=== PATIENT | male | born 1945 | race Caucasian/White ===

== ENCOUNTER → 2020-07-25 11:44 | Outpatient (BNVA) | payer MEDICARE, OTHER, SELFPAY | PROVIDERS: Family Provider Internal Medicine; PCP Urology; Visit Provider Urology | DX: R82.81 Pyuria (principal); N40.1 Benign prostatic hyperplasia with lower urinary tract symptoms; R39.12 Poor urinary stream; R33.9 Retention of urine, unspecified | CPT/HCPCS: 80053; 81001; 87077; 87086; 87186 ==

== ENCOUNTER → 2020-11-26 16:18 | Outpatient (BNVA) | payer MEDICARE, OTHER, SELFPAY | PROVIDERS: Family Provider Internal Medicine; PCP Urology; Visit Provider Urology | DX: R33.9 Retention of urine, unspecified (principal); N40.1 Benign prostatic hyperplasia with lower urinary tract symptoms; R39.12 Poor urinary stream; R30.0 Dysuria; R31.0 Gross hematuria; R33.8 Other retention of urine | CPT/HCPCS: 81003; 87077; 87086; 87184 ==

== ENCOUNTER 2020-12-02 12:20 | Emergency (ER) | payer MEDICARE, OTHER, SELFPAY ==
[2020-12-02] VITALS (7 sets, daily range): BP systolic 147–207; BP diastolic 81–104; PULSE 58–68; RESP 16–18; TEMP 36.3; O2SAT 97–99; BMI 22.6
--- NOTE | 2020-12-02 12:48 | CT_ITS ---
WS: [id number] CT HEAD NONCONTRAST HISTORY: fall/laceration TECHNIQUE: Contiguous axial imaging performed through the brain in 2.5 mm imaging. Bone and soft tiss ue windows. Sagittal and coronal reformats reviewed. All CT scans at [facility] use at ast one of these dose optimization techniques: automated exposure control; mA and/or kV adjustment pe r patient size (includes targeted exams where dose is matched to clinical indication); or iterative r econstruction. DLP: 1295.32 mGy.cm COMPARISON: MRI 08/24/2007 No acute intracranial hemorrhage, midline shift or mass effect. Mild atrophy and mild chronic microvascular ischemic disease. Ventricles: Normal size with no hydrocephalus. No inferior displacement of cerebellar tonsils. Paranasal sinuses: Near complete soft tissue opacification of the RIGHT maxillary sinus. Mastoid air cells: Well pneumatized. Calvarium and scalp: No skull fracture. Extensive soft tissue injury with hematoma and bleeding cente red over the LEFT face and zygomatic arch. No fracture identified. Facial CT to follow. CT/CT head wo con* [id number] IMPRESSION: 1. No acute intracranial hemorrhage or edema. 2. Mild atrophy and chronic ischemic disease. 3. Extensive soft tissue injury centered over the LEFT facial bones. No fractu res identified. Dedicated facial bone CT to follow. 4. Near complete opacification of the RIGHT maxillary sinus. No RIGHT maxillar y sinus fracture identified.
--- NOTE | 2020-12-02 12:48 | CT_ITS ---
WS: [id number] CT FACIAL BONES HISTORY: Fall with laceration/ black eye left. TECHNIQUE: Images obtained from the supraorbital location through the mandible. Soft tissue and bone windows are reviewed. Coronal and sagittal reformats have also been submitted. DLP: 875.[address] scans at [facility] use at least one of these dose optimization techniques: automat ed exposure control; mA and/or kV adjustment per patient size (includes targeted exams where dose is matched to clinical indication); or iterative reconstruction. COMPARISON: None available. No facial bone fracture is identified. No air-fluid levels in the LEFT maxillary sinus. The nasal bon es and zygomatic arches are normal. There is a large amount of soft tissue injury centered over the L EFT zygomatic arch and maxillary sinus. Near complete soft tissue opacification of the RIGHT maxillary sinus is probably due to inspissated s inus secretions. CT/CT facial bones wo con* [id number] IMPRESSION: No facial bone fractures. Soft tissue injury centered over the LEFT facial bones.
--- NOTE | 2020-12-02 12:49 | CT_ITS ---
WS: [id number] CT CERVICAL SPINE HISTORY: fall/pain TECHNIQUE: Contiguous 2.5 mm axial imaging performed through the entire cervical spine. Sagittal and coronal reformats also performed. All CT scans at [facility] use at least one of these do se optimization techniques: automated exposure control; mA and/or kV adjustment per patient size (inc ludes targeted exams where dose is matched to clinical indication); or iterative reconstruction. DLP: 671.49 mGy.cm COMPARISON: 03/30/2007 Increase in the cervical lordosis. Craniocervical junction is intact. Significant narrowing of the pr edental space. Less than 2 mm anterolisthesis of C5. Bilateral facet joint arthritis throughout the c ervical spine. Most significant changes at C4-5, C5-6 and C6-7. No fractures are identified. Bilatera l facet joint arthritis and foraminal narrowing throughout the cervical spine. Most significant narro wing at C5-6 and C6-7 and on the LEFT at C4-5. Atherosclerotic plaque in the carotid bifurcations. Lung apices are clear. CT/CT cervical spin wo con* [id number] IMPRESSION: 1. No cervical spine fracture. 2. Advanced facet joint arthritis as described above.
--- NOTE | 2020-12-02 12:54 | ED_ITS ---
HPI - Head Injury General: Chief complaint: Head Injury Stated complaint: Face Lac/Fall/ Took Asprin Time Seen by Provider: 12/02/20 12:31 History of Present Illness: HPI Narrative: The patient is a 75-year-old male who comes to the ER complaining of a fall related to his Parkinson's disease. Tripped and fell on carpet face first. He has a laceration on his left cheek and left eyebrow as well as a black eye on the left side. He took an aspirin at home and could not get the bleeding to stop so he went to an urgent care center who sent him to the ED for evaluation. Complaint: head injury and fall Mechanism of Injury: fall Place: home Location of injury: face Severity: moderate Quality: sharp Radiation: neck Context: on aspirin Associated symptoms: Reports no associated symptoms and neck pain; Deny confusion Review of Systems General: Reports: 10 or more systems reviewed and unremarkable except in HPI and below Const: Denies: fatigue Eyes: Denies: change in vision, blurry vision or eye redness ENMT: Denies: throat pain, swelling of lips/tongue, ear or mastoid pain or nasal congestion Card: Denies: chest pain, palpitations, irregular heart rhythm, edema, dyspnea on exertion or orthopnea Resp: Denies: dyspnea, productive cough or non-productive cough GI: Denies: abdominal pain, diarrhea or GI cramping : Denies: flank pain, urinary frequency or urinary urgency Musc: Reports: neck pain Skin/Breast: Reports: other (2 lacerations); Denies: rash, pruritus, erythema, skin pain or skin tenderness Neuro: Denies: headache(s), numbness in extremities, weakness in extremities, sensory changes, difficulty walking, dizziness, confusion or Slurred speech present Psych: Denies: anxiety or depression Endo: Denies: polyuria All/Imm: Denies: urticaria, throat swelling or tongue swelling PFS ED PFSH: Medical History Benign prostatic hyperplasia with lower urinary tract symptoms Gross hematuria Hx of cataract Hx of myocardial infarction Incomplete bladder emptying Neuropathy Parkinson disease Pyuria Surgical History Hx of mitral valve replacement Family History Father Stroke Mother CAD (coronary artery disease) Social History Smoking and tobacco status: former smoker Alcohol intake: unknown Adopted: No Caregiver/support person: No Lives independently: No Household members: spouse Marital status: Current occupational status: retired Physical Exam Const: COMMON NORMALS: no acute distress, average body habitus, patient oriented x3, no limitations, healthy appearing, alert and well nourished GENERAL APPEARANCE: cooperative, comfortable, well kempt and well developed ORIENTATION/CONSCIOUSNESS: Yes awake, Yes oriented to person, Yes oriented to place and Yes oriented to time HENMT: COMMON NORMALS: normocephalic, external ears normal and Normal external nose present HEAD & SCALP: normal to inspection and normocephalic NOSE: Normal external nose present EXTERNAL EAR: Yes external ears normal MOUTH: Normal oral and palatal mucosa present THROAT: posterior oropharynx normal Eye: COMMON NORMALS: Equal, round and reactive pupils present and EOMs intact bilaterally GENERAL EYE: appearance normal, both eyes and all related structures PUPIL: Yes Equal, round and reactive pupils present Neck/C-Spine: COMMON NORMALS: full ROM, no lymphadenopathy, no meningeal signs and no JVD GENERAL: Yes normal visual inspection Lymph: LYMPHATIC: no lymphadenopathy noted Chest: COMMONS NORMALS: normal inspection of the chest and normal palpation of entire chest wall Resp: COMMON NORMALS: normal respiratory effort, No retractions, No use of accessory muscles, clear to auscultation bilaterally and percussion normal EFFORT & INSPECTION: Yes able to speak in complete sentences AUSCULTATION: clear to auscultation bilaterally PERCUSSION: percussion normal Cardio: COMMON NORMALS: no JVD, regular rate, regular rhythm, S1 normal heart sound present, S2 normal heart sound present and Peripheral pulses 2+ throughout RATE: regular rate RHYTHM: regular rhythm HEART SOUNDS: S1 normal heart sound present and S2 normal heart sound present PERIPHERAL PULSES: Peripheral pulses 2+ throughout GI: COMMON NORMALS: Normal to inspection, nondistended, normoactive bowel sounds present, Soft to palpation, non-tender and no masses INSPECTION: Yes normal to inspection PALPATION: Yes Soft to palpation : COMMON NORMALS: Yes no CVA tenderness BLADDER/KIDNEY EXAM: Yes no CVA tenderness Back/Pelvis: COMMON NORMALS: no CVA tenderness, thoracic and lumbar spine normal to inspection, no thoracic nor lumbar tenderness and thoraco-lumbar ROM normal Extremity: COMMON NORMALS: normal to inspection, full ROM, capillary refill normal, no joint enlargement and no pedal edema GENERAL: Yes normal exam except as noted Neuro: COMMON NORMALS: patient oriented x3, CN's II-XII intact bilaterally, moves all extremities, no focal motor deficits, no sensory deficits noted and gait normal SENSORIUM/ORIENTATION: Yes alert, Yes oriented to person, Yes oriented to place and Yes oriented to time MENINGEAL SIGNS: Yes no meningeal signs Psych: COMMON NORMALS: mental status grossly normal, Normal thought process present, cooperative, normal affect and speech normal APPEARANCE: Yes well kempt ATTITUDE: Yes calm SPEECH: Yes normal speech THOUGHT PROCESS: Normal thought process present Skin: COMMON NORMALS: no rashes or lesions noted NARRATIVE SKIN EXAM: Normal except he has a black eye on the left side. He is able to open his eye it is not swollen completely shut. Normal vision he is able to read small print including my ID with that eye and the other eye closed. He has 2 lacerations the worst is to his left cheek which is 4-5 cm and irregular actively bleeding. Bruising surrounding. Slightly above and lateral to the left eyebrow is a smaller laceration 2 to 3 cm also actively bleeding. Pressure dressing applied by nurse. GENERAL SKIN EXAM: no rashes or lesions noted Procedures Laceration Laceration 1: Site: face (left cheek) Side (If applicable): left Size (cm): 4 Description: irregular Local Anesthetic: lidocaine 1% and with epi Amount of anesthesia used (mL): 4 Skin layer closed with: other (nonabsorbable suture) Size (cm): 5-0 Number of sutures: 7 Technique: simple, interrupted eyebrow laceration: Site: face Side (If applicable): left Size (cm): 3.5 Description: irregular Local Anesthetic: lidocaine 1% and with epi Amount of anesthesia used (mL): 4 Skin layer closed with: vicryl Size (cm): 5-0 Number of sutures: 1 Course Vital Signs: Vital signs: Vital Signs Temperature 97.3 F L 12/02/20 12:31 Pulse Rate 61 12/02/20 16:06 Respiratory Rate 18 12/02/20 12:31 Blood Pressure 169/92 12/02/20 16:06 Pulse Oximetry 99 12/02/20 16:06 MDM - Head Injury MDM Narrative: Medical decision making narrative: CT of the head neck and face shows no fractures. 2 lacerations to face were repaired. Had to open up the upper laceration and use silver nitrate and [id number] Vicryl stitch. Bleeding ceased. He will need to follow-up with urgent care in 7 to 10 days to have the other sutures removed on the lower laceration. ER with worsening symptoms. Discharged with Keflex to find a potential infection Discharge Plan Discharge Patient Disposition: Home Clinical Impression: Closed head injury, Face lacerations Condition: Stable Prescriptions: New Keflex 500 mg capsule 500 mg PO BID 7 Days Qty: 14 RF: 0 No Action duloxetine 30 mg capsule,delayed release(DR/EC) 30 mg PO BEDTIME RF: 0 sulfamethoxazole-trimethoprim 800-160 mg tablet 1 tab PO BID Qty: 28 RF: 0 aspirin [Adult Low Dose Aspirin] 81 mg tablet,delayed release (DR/EC) 81 mg PO QAM RF: 0 carvedilol 12.5 mg tablet 12.5 mg PO BID RF: 0 Rytary 48.75-195 mg capsule, extended release See Rx Instructions .ROUTE .COMPLEX RF: 0 ropinirole 1 mg tablet 2 mg PO TID RF: 0 acetaminophen [Tylenol 8 Hour] 650 mg tablet extended release 650 mg PO Q8H PRN (Reason: Pain) RF: 0 alpha lipoic acid 250 mg capsule 250 mg PO DAILY RF: 0 silodosin [Rapaflo] 8 mg capsule 8 mg PO QPM RF: 0 methenamine hippurate 1 gram tablet 1 g PO BID Qty: 180 RF: 3 multivitamin Tablet 1 tab PO DAILY RF: 0 hydrocodone-acetaminophen 5-325 mg tablet 1 tab PO Q4H PRN (Reason: Pain) RF: 0 Rytary 23.75-95 mg capsule, extended release 1 cap PO QID PRN (Reason: unknown) RF: 0 finasteride 5 mg tablet 5 mg PO QAM RF: 0 Discharge Orders: Discharge ED (Routine); Ordered 12/02/20 Ordered By: Venkata Gamez Referrals: Emiliano Oliva MD [Primary Care Provider] - Discharge Diet: Advance as tolerated Discharge Activity: Resume usual activity Patient Instructions: Laceration (ED) Activity Restrictions/Additional Instructions: You have a couple lacerations to your face. The lower one has several sutures in it which need to be removed in 7 to 10 days. The upper 1 we had to remove the sutures and use silver nitrate to cauterize the area as well as I placed 1 [id number] Vicryl suture which is absorbable so it will not need to be removed. Please follow-up with your primary care physician or urgent care around them and return to the ER with worsening symptoms. Coding Level of Care Code ED Ict Programmer for Stacey Lofton Exam Comprehensive
--- NOTE | 2020-12-02 12:58 | PC.NURSE ---
pt has laceration above left eye and hematoma near eye
[2020-12-02] MEDS: cloNIDine 0.1 mg Tablet 0.2 MG PO (16:04)
[2020-12-02] MEDS: neomycin-poly-bacitracin oint 0.9 gm Pkt 1 APPLIC TOPICAL (17:06)
--- NOTE | 2020-12-02 17:07 | PC.NURSE ---
assisted physician with suture placement-wound cleaned and dressed
--- NOTE | 2020-12-02 19:08 | PC.NURSE ---
report received from ALESIA Marino and care transferred to ALESIA Lainez
[2020-12-02] MEDS: silver nitrate applicator 6 EACH TOPICAL (20:10)
== END 2020-12-02 20:20 | disposition home or self-care (01) ==
PROVIDERS: Emergency Provider Family Medicine; PCP Urology
DX: S09.8XXA Other specified injuries of head, initial encounter (principal); S01.412A Laceration without foreign body of left cheek and temporomandibular area, initial encounter; S01.112A Laceration without foreign body of left eyelid and periocular area, initial encounter; W01.198A Fall on same level from slipping, tripping and stumbling with subsequent striking against other object, initial encounter; I25.2 Old myocardial infarction; G20 Parkinson's disease; Z87.891 Personal history of nicotine dependence
CPT/HCPCS: 12014; 12345; 70450; 70486; 72125; 99282; 99283; J3490

== ENCOUNTER → 2021-01-09 09:03 | Outpatient (BNVA) | payer MEDICARE, OTHER, SELFPAY | PROVIDERS: PCP Urology; Visit Provider Urology | DX: R30.0 Dysuria (principal); R31.0 Gross hematuria; R82.81 Pyuria; N40.1 Benign prostatic hyperplasia with lower urinary tract symptoms; R39.12 Poor urinary stream; R33.9 Retention of urine, unspecified | CPT/HCPCS: 81003 ==

== ENCOUNTER 2021-01-16 18:26 | Emergency (ER) | payer MEDICARE, OTHER, SELFPAY ==
--- NOTE | 2021-01-16 18:32 | CTR_ITS ---
PROCEDURE INFORMATION: Exam: CT Head Without Contrast Exam date and time: 01/16/2021 6:42 PM Age: 75 years old Clinical indication: Injury or trauma; Fall; Blunt trauma (contusions or hematomas); Without loss of consciousness TECHNIQUE: Imaging protocol: Computed tomography of the head without contrast. Radiation optimization: All CT scans at this facility use at least one of these dose optimization techniques: automated exposure control; mA and/or kV adjustment per patient size (includes targeted exams where dose is matched to clinical indication); or iterative reconstruction. COMPARISON: No relevant prior studies available. RADIATION DOSE METRICS: Total DLP (mGy-cm): 527.7 FINDINGS: Brain: There are global involutional changes of the brain which are in keeping with the patient's age. Periventricular hypodensities are nonspecific but most likely reflect chronic microvascular ischemic disease. There is no evidence of intracranial hemorrhage. No abnormal extra-axial fluid collections are identified. No mass effect or midline shift is seen. Shannon-white differentiation is preserved throughout. Cerebral ventricles: No ventriculomegaly. Bones/joints: No calvarial fracture identified. Paranasal sinuses: There is partial opacification of the right maxillary antrum. No air-fluid levels. Mastoid air cells: There is no mastoid effusion detected. Vasculature: Atherosclerotic vascular disease is noted at the level of the skull base. Soft tissues: Right frontal scalp injury. CT/CT head wo con* [id number] IMPRESSION: 1. No acute intracranial hemorrhage, mass or midline shift. 2. Involutional changes of the brain in keeping with the patient's age, with findings of chronic microvascular ischemic disease. Radiation Dose CTDIVOL = (mGy): DLP = 527.7 (mGy-cm)
[2021-01-16 18:38] VITALS: BP 127/100; PULSE 82; RESP 18; O2SAT 95; BMI 23.3
[2021-01-16 19:01] VITALS: BP 127/100; PULSE 63; RESP 16; O2SAT 93
[2021-01-16 20:44] VITALS: BP 148/78; RESP 16; O2SAT 97
[2021-01-16 20:52] LABS: Basophils # 0.1 10^3/uL (0.0-0.1); Basophils % 0.7 %; Eosinophils # 0.1 10^3/uL (0.0-0.8); Eosinophils % 0.9 %; Hemoglobin 10.4 g/dL (11.7-16.6); Lymphocytes # 1.4 10^3/uL (0.8-4.8); Mean Corpuscular HGB Conc 32.5 g/dL (30.0-36.0); Mean Corpuscular Hemoglobin 30.2 pg (28.0-34.0); Mean Platelet Volume 9.2 fL (7.4-10.4); Monocytes # 0.9 10^3/uL (0.2-0.9); Monocytes % 11.4 %; Neutrophils # 5.04 10^3/uL (1.8-7.7); Neutrophils % 67.7 %; Nucleated Red Blood Cells % 0 %; Platelet Count 210 10^3/cmm (130-400); Red Blood Count 3.44 10^6/uL (4.1-5.3); Red Cell Distribution Width 13.2 % (12.1-15.1); White Blood Count 7.4 10^3/uL (4.0-10.0)
--- NOTE | 2021-01-16 21:13 | ED_ITS ---
HPI - Head Injury General: Chief complaint: Head Injury Stated complaint: head wound Time Seen by Provider: 01/16/21 18:37 Source: patient and family () Mode of arrival: ambulatory Limitations: no limitations History of Present Illness: HPI Narrative: This is a 75-year-old male with a history of Parkinson's disease who has balance issues and has had several falls. Today he said he tripped and fell and hit his head on the corner of a table and sustained a laceration to the right temporal region. He denies any loss of consciousness. He is not on any anticoagulation. He says he lost quite a bit of blood and so is here to be evaluated. Complaint: head injury Onset (ago): hour(s) (1) Mechanism of Injury: fall Place: home Loss of Consciousness: no Location of injury: temporal Severity: mild Quality: sharp Radiation: none Other Injuries: none Associated symptoms: Deny amnesia, confusion, nausea, neck pain, numbness, syncope, tingling, vertigo, visual changes, vomiting or weakness Review of Systems General: Reports: 10 or more systems reviewed and unremarkable except in HPI and below Const: Denies: fever(s), chills or body aches Eyes: Denies: change in vision or blurry vision ENMT: Denies: throat pain, enlarged tonsils, odynophagia, hoarseness, mouth pain or swelling of lips/tongue Card: Denies: syncope Resp: Denies: dyspnea, productive cough or non-productive cough GI: Denies: nausea or vomiting : Denies: flank pain, dysuria, urinary frequency, urinary urgency or urinary hesitancy Musc: Denies: neck pain Skin/Breast: Denies: rash, pruritus or erythema Neuro: Denies: vertigo or confusion Endo: Denies: polyuria, polydipsia or tired all the time PFS ED PFSH: Medical History (Reviewed 01/16/21 @ 23:05 by Marques Palacio [place], [facility] [place] Benign prostatic hyperplasia with lower urinary tract symptoms Gross hematuria Hx of cataract Hx of myocardial infarction Incomplete bladder emptying Neuropathy Parkinson disease Pyuria Surgical History (Reviewed 01/16/21 @ 23:05 by Marques Palacio MD, [facility] [place] Hx of mitral valve replacement Family History (Reviewed 01/16/21 @ 23:05 by Marques Palacio MD, [facility] [place] Father Stroke Mother CAD (coronary artery disease) Social History (Reviewed 01/16/21 @ 23:05 by Marques Palacio MD, [facility] Smoking and tobacco status: former smoker Alcohol intake: unknown Adopted: No Caregiver/support person: No Lives independently: No Household members: spouse Marital status: Current occupational status: retired History of recent travel: No Physical Exam Narrative: EXAM NARRATIVE: There is a lot of bleeding on his clothes, his shirt is soaked with blood and the dressing he has on his head is also fully soaked with blood. Const: COMMON NORMALS: no acute distress, average body habitus, patient oriented x3, no limitations, healthy appearing, alert and well nourished HENMT: COMMON NORMALS: normocephalic and moist oral mucous membranes HEAD & SCALP: normocephalic and laceration right temporal Details of head laceration: linear, actively bleeding, pulsatile bleeding, involves subcutaneous tissue and involves muscle tissue Head laceration size: 8 cm Eye: COMMON NORMALS: Equal, round and reactive pupils present, EOMs intact bilaterally, conjunctivae normal and no scleral icterus CONJUNCTIVA: Yes conjunctivae normal PUPIL: Yes Equal, round and reactive pupils present Neck/C-Spine: COMMON NORMALS: full ROM, supple, no meningeal signs, no JVD and No carotid bruits Resp: COMMON NORMALS: normal respiratory effort, No retractions, No use of accessory muscles, clear to auscultation bilaterally and percussion normal AUSCULTATION: clear to auscultation bilaterally PERCUSSION: percussion normal Cardio: COMMON NORMALS: no JVD, regular rate, regular rhythm, S1 normal heart sound present, S2 normal heart sound present, No gallops present (Cardio), No clicks present (Cardio), No murmurs present (Cardio), No rub (Cardio) and Peripheral pulses 2+ throughout RATE: regular rate RHYTHM: regular rhythm HEART SOUNDS: S1 normal heart sound present and S2 normal heart sound present PERIPHERAL PULSES: Peripheral pulses 2+ throughout GI: COMMON NORMALS: Normal to inspection, nondistended, normoactive bowel sounds present, Soft to palpation, non-tender, No hepatosplenomegaly present, no masses and no bruits PALPATION: Yes Soft to palpation and Yes No hepatosplenomegaly present Extremity: COMMON NORMALS: normal to inspection, full ROM, capillary refill normal, no calf tenderness and no pedal edema Neuro: COMMON NORMALS: patient oriented x3 SENSORIUM/ORIENTATION: Yes alert MENINGEAL SIGNS: Yes no meningeal signs Skin: COMMON NORMALS: no rashes or lesions noted, no wounds, turgor normal, no jaundice, no petechiae and no mottling GENERAL SKIN EXAM: no rashes or lesions noted and turgor normal Procedures Laceration Laceration 1: Site: scalp Side (If applicable): right Size (cm): 8 Description: linear Depth: involves muscle layer Local Anesthetic: lidocaine 2% and with epi Amount of anesthesia used (mL): 5 Pre-repair: wound explored and irrigated extensively Skin layer closed with: nylon Size (cm): 5-0 Number of sutures: 6 Technique: simple, interrupted Subcutaneous layer closed with: vicryl Size: 5-0 Number of sutures: 3 Muscle layer closed with: vicryl Course Vital Signs: Vital signs: Vital Signs Pulse Rate 71 01/16/21 22:44 Respiratory Rate 15 01/16/21 22:44 Blood Pressure 189/97 01/16/21 22:44 Pulse Oximetry 99 01/16/21 22:44 MDM - Head Injury MDM Narrative: Medical decision making narrative: 75-year-old male with history of Parkinson's disease who tripped and fell today and hit his head on a table. He sustained a laceration to his right temporal region with arterial injury. Wound was sutured, artery ligated successfully and muscle and subcutaneous tissue repaired with 5-0 Vicryl. Skin was closed with 5-0 nylon and he is discharged home with head injury instructions. Wound care instructions also given to the patient and his . He was given a dose of ceftriaxone in the emergency department and discharged home with a prescription for Keflex. He is to return for any concerns including signs of worsening head injury, infection of the wound or anything else that bothers them. and voiced understanding and they in agreement with the plan. Hemoglobin was 10.4. Medical Records: Attestation: I reviewed the patient's medical records. Lab Data: Attestation: I reviewed the patient's lab results. Labs: Lab Results 01/16/21 01/16/21 Range/Units 20:40 20:40 WBC 7.4 (4.0-10.0) 10^3/ uL RBC 3.44 L (4.1-5.3) 10^6/u L Hgb 10.4 L (11.7-16.6) g/dL Hct 32.0 L (42.0-52.0) % MCV 93.0 (80-94) fL MCH 30.2 (28.0-34.0) pg MCHC 32.5 (30.0-36.0) g/dL RDW 13.2 (12.1-15.1) % Plt Count 210 (130-400) 10^3/c mm MPV 9.2 (7.4-10.4) fL Neut % (Auto) 67.7 % Lymph % (Auto) 19.0 % Tate % (Auto) 11.4 % Eos % (Auto) 0.9 % Baso % (Auto) 0.7 % Neut # (Auto) 5.04 (1.8-7.7) 10^3/u L Lymph # (Auto) 1.4 (0.8-4.8) 10^3/u L Tate # (Auto) 0.9 (0.2-0.9) 10^3/u L Eos # (Auto) 0.1 (0.0-0.8) 10^3/u L Baso # (Auto) 0.1 (0.0-0.1) 10^3/u L Nucleated RBC % (a uto) 0 % Nucleated RBCs # 0.0 /100WBC Sodium 133 L (136-145) mmol/L Potassium 4.0 (3.5-5.1) mmol/L Chloride 97 L (98-107) mmol/L Carbon Dioxide 27 (22-29) mmol/L Anion Gap 13.0 (5-19) BUN 12 (8-23) mg/dL Creatinine 0.6 L (0.7-1.2) mg/dL GFR Calculation Not Reportable Glucose 107 (65-115) mg/dL Calculated Osmolal ity 276 L (285-295) mOsm/k g Calcium 8.9 (8.5-10.5) mg/dL Total Bilirubin 0.4 (0.15-1.2) mg/dL AST 12 (0-40) U/L ALT < 5 (0-41) U/L Alkaline Phosphata se 72 (40-130) IU/L Total Protein 5.9 L (6.6-8.7) g/dL Albumin 3.7 (3.5-5.2) g/dL Globulin 2.2 (1.3-4.6) g/dL Imaging Data^: CT Head: Attestation: I personally reviewed and interpreted this imaging study as follows: Radiologist's impression: [address] [place] [address] CT Scan Report Signed Patient: Wayne Doshi #: [id number] : 3Acct#:[id number] Age/Sex: 75 / MADM Date: 01/16/21 Loc: ERRoom/Bed: Attending Dr: Ordering Provider/Ordering MD: Karlo Rahman MD Date of Service: 01/16/21 Procedure(s): CT head wo con* [id number] Accession Number(s): [id number] Report Number: [id number] PROCEDURE INFORMATION: Exam: CT Head Without Contrast Exam date and time: 01/16/2021 6:42 PM Age: 75 years old Clinical indication: Injury or trauma; Fall; Blunt trauma (contusions or hematomas); Without loss of consciousness TECHNIQUE: Imaging protocol: Computed tomography of the head without contrast. Radiation optimization: All CT scans at this facility use at least one of these dose optimization techniques: automated exposure control; mA and/or kV adjustment per patient size (includes targeted exams where dose is matched to clinical indication); or iterative reconstruction. COMPARISON: No relevant prior studies available. RADIATION DOSE METRICS: Total DLP (mGy-cm): 527.7 FINDINGS: Brain: There are global involutional changes of the brain which are in keeping with the patient's age. Periventricular hypodensities are nonspecific but most likely reflect chronic microvascular ischemic disease. There is no evidence of intracranial hemorrhage. No abnormal extra-axial fluid collections are identified. No mass effect or midline shift is seen. Shannon-white differentiation is preserved throughout. Cerebral ventricles: No ventriculomegaly. Bones/joints: No calvarial fracture identified. Paranasal sinuses: There is partial opacification of the right maxillary antrum. No air-fluid levels. Mastoid air cells: There is no mastoid effusion detected. Vasculature: Atherosclerotic vascular disease is noted at the level of the skull base. Soft tissues: Right frontal scalp injury. CT/CT head wo con* [id number] IMPRESSION: 1. No acute intracranial hemorrhage, mass or midline shift. 2. Involutional changes of the brain in keeping with the patient's age, with findings of chronic microvascular ischemic disease. Radiation Dose CTDIVOL = (mGy): DLP = 527.7 (mGy-cm) Dictated By:Denia Bishop MD Signed By:Denia Bishopigned Date/Time:01/16/211923 DD/ 22 Discharge Plan Discharge Patient Disposition: Home Clinical Impression: Closed head injury Qualifiers: Encounter type: initial encounter Qualified Code(s): S09.90XA - Unspecified injury of head, initial encounter Scalp laceration Qualifiers: Encounter type: initial encounter Qualified Code(s): S01.01XA - Laceration without foreign body of scalp, initial encounter Fall Qualifiers: Encounter type: initial encounter Qualified Code(s): W19.XXXA - Unspecified fall, initial encounter Condition: Stable Prescriptions: New Keflex 500 mg capsule 500 mg PO Q6H 7 Days Qty: 28 RF: 0 Continued duloxetine 30 mg capsule,delayed release(DR/EC) 30 mg PO BEDTIME RF: 0 ascorbate calcium (vitamin C) 500 mg tablet 1 g PO BID RF: 0 aspirin [Adult Low Dose Aspirin] 81 mg tablet,delayed release (DR/EC) 81 mg PO QAM RF: 0 carvedilol 12.5 mg tablet 12.5 mg PO BID RF: 0 Rytary 48.75-195 mg capsule, extended release See Rx Instructions .ROUTE .COMPLEX RF: 0 ropinirole 1 mg tablet 2 mg PO TID@07,10,14 RF: 0 acetaminophen [Tylenol 8 Hour] 650 mg tablet extended release 650 mg PO Q8H PRN (Reason: Pain) RF: 0 alpha lipoic acid 250 mg capsule 250 mg PO QAM RF: 0 silodosin [Rapaflo] 8 mg capsule 8 mg PO QPM RF: 0 methenamine hippurate 1 gram tablet 1 g PO BID Qty: 180 RF: 3 finasteride 5 mg tablet 5 mg PO QAM RF: 0 multivitamin Tablet 1 tab PO QAM RF: 0 Rytary 23.75-95 mg capsule, extended release 1 cap PO QID PRN (Reason: unknown) RF: 0 Discharge Orders: Discharge ED (Routine); Ordered 01/16/21 Ordered By: Marques Palacio Referrals: Emiliano Oliva MD [Primary Care Provider] - 1-3 days Discharge Diet: Usual diet Discharge Activity: Increase activity as tolerated Patient Instructions: Scalp Laceration, Minor Head Injury (ED), Fall Prevention (ED) Activity Restrictions/Additional Instructions: Return for any new or worsening symptoms. Follow-up with your primary care provider in 5 to 7 days for removal of sutures. You need to be observed closely for the next 24 hours for signs of severe head injury-these include severe dizziness, severe headache, persistent vomiting that does not stop, gait difficulty, altered mental status. If any of these are noticed then you need emergent review in the emergency department. Keep the wound clean and dry, keep the dressing on for the next 2 days and then after that clean with soap and water every day. You can also apply an antibiotic ointment on the wound every day. Take the antibiotic as prescribed. 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
[2021-01-16 21:32] LABS: Alanine Aminotransferase < 5 U/L (0-41); Albumin Level 3.7 g/dL (3.5-5.2); Alkaline Phosphatase 72 IU/L (40-130); Aspartate Amino Transferase 12 U/L (0-40); Blood Urea Nitrogen 12 mg/dL (8-23); Calcium 8.9 mg/dL (8.5-10.5); Carbon Dioxide 27 mmol/L (22-29); Chloride 97 mmol/L (98-107); Globulin 2.2 g/dL (1.3-4.6); Glucose 107 mg/dL (65-115); Osmolality Calculated 276 mOsm/kg (285-295); Sodium 133 mmol/L (136-145); Total Bilirubin 0.4 mg/dL (0.15-1.2); Total Protein 5.9 g/dL (6.6-8.7)
[2021-01-16 21:38] LABS: Creatinine Clr Calc Pharmacy 80.2533
[2021-01-16] MEDS: cefTRIAXone 1,000 MG in lidocaine 1% 2.1 ML 2.1 MG IM (22:43)
[2021-01-16 22:44] VITALS: BP 189/97; PULSE 71; RESP 15; O2SAT 99
== END 2021-01-16 22:58 | disposition home or self-care (01) ==
PROVIDERS: Emergency Provider Family Medicine; PCP Urology
DX: S01.01XA Laceration without foreign body of scalp, initial encounter (principal); S09.8XXA Other specified injuries of head, initial encounter; Z79.82 Long term (current) use of aspirin; I25.2 Old myocardial infarction; G20 Parkinson's disease; Z87.891 Personal history of nicotine dependence; W01.190A Fall on same level from slipping, tripping and stumbling with subsequent striking against furniture, initial encounter
CPT/HCPCS: 12034; 70450; 80053; 85025; 99283; 99291; J0696

== ENCOUNTER → 2021-01-28 14:06 | Outpatient (BNVA) | payer MEDICARE, OTHER, SELFPAY | PROVIDERS: PCP Urology; Visit Provider Urology | DX: R82.81 Pyuria (principal) | CPT/HCPCS: 81003; 87086 ==

== ENCOUNTER → 2021-04-14 10:17 | Outpatient (BNVA) | payer MEDICARE, OTHER, SELFPAY | PROVIDERS: PCP Urology; Visit Provider Urology | DX: R31.0 Gross hematuria (principal) | CPT/HCPCS: 81003; 87086 ==

== ENCOUNTER → 2021-07-24 11:09 | Outpatient (BNVA) | payer MEDICARE, OTHER, SELFPAY | PROVIDERS: PCP Urology; Visit Provider Urology | DX: N40.1 Benign prostatic hyperplasia with lower urinary tract symptoms (principal); R39.12 Poor urinary stream | CPT/HCPCS: 81003 ==

== ENCOUNTER 2022-01-03 14:05 | Emergency (ER) | payer MEDICARE, OTHER, SELFPAY ==
--- NOTE | 2022-01-03 14:11 | ED_ITS ---
HPI - Fall General: Chief Complaint: Fall Stated Complaint: CHIN LAC S/P FALL Time Seen by Provider: 01/03/22 14:10 Source: patient and EMS Mode of arrival: EMS History of Present Illness: 76-year-old male. Patient stumbled fell at home his laceration on the left side of his chin. On arrival is active bleeding pretty significant amount of bleeding is difficult to assess initially where the cut is coming from because of his nolan and caked blood. He denies any loss of consciousness. He is on aspirin as Parkinson's as well. Is not on any other anticoagulants. MD complaint: fall Onset (ago): minute(s) Fall from: standing Fall witnessed: yes, by family Place fall occurred: home Loss of consciousness: None Prolonged down time: no Symptoms prior to fall: none Context: tripped/slipped Location of injury: face Severity: moderate Associated symptoms-after fall: Denies abdominal pain, chest pain, confusion, difficulty walking, headache(s), hematuria, lightheadedness, neck pain, numbness, short of breath, vertigo or weakness Review of Systems 2 Const: Denies: fever(s), chills, body aches, change in appetite, fatigue or malaise ENMT: Denies: throat pain, ear or mastoid pain, nasal discharge or nasal congestion Card: Denies: chest pain or lightheadedness Resp: Denies: dyspnea, productive cough or non-productive cough GI: Denies: abdominal pain : Denies: hematuria Musc: Denies: neck pain Skin/Breast: Denies: rash or pruritus Neuro: Denies: headache(s), difficulty walking, vertigo or confusion [facility] ED PFSH: Medical History Benign prostatic hyperplasia with lower urinary tract symptoms Gross hematuria Hx of cataract Hx of myocardial infarction Incomplete bladder emptying Neuropathy Parkinson disease Pyuria Surgical History Hx of mitral valve replacement Family History Father Stroke Mother CAD (coronary artery disease) Social History Smoking and tobacco status: former smoker Alcohol intake: unknown Adopted: No Caregiver/support person: No Lives independently: No Household members: spouse Marital status: Current occupational status: retired History of recent travel: No Physical Exam Const: COMMON NORMALS: patient oriented x3 GENERAL APPEARANCE: cooperative, comfortable and well kempt NUTRITIONAL APPEARANCE: obese ORIENTATION/CONSCIOUSNESS: Yes awake, Yes oriented to person, Yes oriented to place and Yes oriented to time HENMT: COMMON NORMALS: normocephalic, hearing grossly normal bilaterally, ext ernal ears normal, EAC's normal, TM's normal bilaterally, Normal nasal mucous membranes and turbinates present, moist oral mucous membranes and oropharynx normal HEAD & SCALP: normocephalic NOSE: Normal nasal mucous membranes and turbinates present EXTERNAL EAR: Yes external ears 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 CANAL: EAC's normal TYMPANIC MEMBRANE: TM's normal bilaterally MOUTH: Normal oral and palatal mucosa present, lip normal and tongue normal THROAT: posterior oropharynx normal and tonsils normal Eye: COMMON NORMALS: Equal, round and reactive pupils present, EOMs intact bilaterally, conjunctivae normal and no scleral icterus CONJUNCTIVA: Yes conjunctivae normal PUPIL: Yes Equal, round and reactive pupils present Neck/C-Spine: COMMON NORMALS: full ROM, no lymphadenopathy, supple, no meningeal signs, no JVD and Thyroid normal THYROID: Thyroid normal and asymmetrical Lymph: LYMPHATIC: no lymphadenopathy noted Resp: COMMON NORMALS: normal respiratory effort, No retractions, No use of accessory muscles and clear to auscultation bilaterally AUSCULTATION: clear to auscultation bilaterally Cardio: COMMON NORMALS: no JVD, regular rate, regular rhythm and No murmurs present (Cardio) RATE: regular rate RHYTHM: regular rhythm HEART SOUNDS: no murmurs GI: COMMON NORMALS: Soft to palpation and No hepatosplenomegaly present AUSCULTATION: Yes normoactive bowel sounds PALPATION: Yes Soft to palpation, No Tenderness to palpation present (GI), No Guarding due to palpation present (GI) and Yes No hepatosplenomegaly present : COMMON NORMALS: Yes no CVA tenderness BLADDER/KIDNEY EXAM: Yes no CVA tenderness Back/Pelvis: COMMON NORMALS: no CVA tenderness LUMBAR SPINE/LOWER BACK: Yes normal to inspection Extremity: COMMON NORMALS: normal to inspection, capillary refill normal, no clubbing, cyanosis or edema, no calf tenderness and no pedal edema Neuro: COMMON NORMALS: patient oriented x3 SENSORIUM/ORIENTATION: Yes oriented to person, Yes oriented to place and Yes oriented to time MENINGEAL SIGNS: Yes no meningeal signs Psych: APPEARANCE: Yes well kempt Skin: COMMON NORMALS: no rashes or lesions noted GENERAL SKIN EXAM: no rashes or lesions noted OTHER: Left-sided submandibular laceration with large amount of active bleeding poorly controlled by direct pressure. Shortly after arrival to [id number] sutures were placed in that area after local anesthesia was given to control bleeding. Patient had several 100 mL of blood loss just with the bloodsoaked clothing dressing and bedding that was present in the emergency room. Procedures Laceration Laceration 1: Site: face Side (If applicable): left Size (cm): 6 Description: linear Depth: simple, single layer Local Anesthetic: lidocaine 1% Amount of anesthesia used (mL): 8 Pre-repair: wound explored and irrigated extensively Skin layer closed with: nylon Size (cm): 4-0 Number of sutures: 3 Course Vital Signs: Vital signs: Vital Signs Temperature 98.7 F 01/03/22 15:17 Pulse Rate 79 01/03/22 19:03 Respiratory Rate 165 H 01/03/22 16:03 Blood Pressure 178/118 01/03/22 19:03 Pulse Oximetry 97 01/03/22 19:03 MDM - Fall Medical Decision Making Initially on arrival 3-0 Vicryl was used to control bleeding, local anesthesia applied and 2 [id number] sutures applied with good control of bleeding. We allowed this to stay in place for approximately an hour then the area was reanesthetized and interrupted sutures were used to close the wound. The [id number] sutures were removed there was no recurrence of bleeding and interrupted sutures were placed including a deep amount of tissue in that area. No significant bleeding after placement of sutures patient tolerated well wound care instructions given discharge home sutures out in 10 days. Medical Records I reviewed the patient's medical records. Lab Data I reviewed the patient's lab results. : 01/03/22 14:42 Radiology Impressions Cervical Spine CT 01/03/22 16:43 IMPRESSION: No acute findings. Face CT 01/03/22 16:43 IMPRESSION: 1. Negative for fracture or dislocation. 2. Paranasal sinus opacifications. Head CT 01/03/22 16:44 IMPRESSION: 1. Negative for intracranial hemorrhage or mass effect. 2. Paranasal sinus opacifications. 3. Moderate diffuse white matter disease likely reflecting chronic microvascular ischemic changes. Laboratory Results WBC 8.3 10^3/uL (4.0-10.0) 01/03/22 14:42 RBC 3.37 10^6/uL (4.1-5.3) L 01/03/22 14:42 Hgb 10.3 g/dL (11.7-16.6) L 01/03/22 14:42 Hct 34.2 % (42.0-52.0) L 01/03/22 14:42 MCV 101.5 fl (80-94) H 01/03/22 14:42 MCH 30.6 pg (28.0-34.0) 01/03/22 14:42 MCHC 30.1 g/dL (30.0-36.0) 01/03/22 14:42 RDW 13.2 % (12.1-15.1) 01/03/22 14:42 Plt Count 249 10^3/cmm (130-400) 01/03/22 14:42 MPV 9.1 fL (7.4-10.4) 01/03/22 14:42 Neut % (Auto) 76.3 % 01/03/22 14:42 Lymph % (Auto) 10.8 % 01/03/22 14:42 Petroleum % (Auto) 10.5 % 01/03/22 14:42 Eos % (Auto) 1.1 % 01/03/22 14:42 Baso % (Auto) 0.7 % 01/03/22 14:42 Neut # (Auto) 6.34 10^3/uL (1.8-7.7) 01/03/22 14:42 Lymph # (Auto) 0.9 10^3/uL (0.8-4.8) 01/03/22 14:42 Petroleum # (Auto) 0.9 10^3/uL (0.2-0.9) 01/03/22 14:42 Eos # (Auto) 0.1 10^3/uL (0.0-0.8) 01/03/22 14:42 Baso # (Auto) 0.1 10^3/uL (0.0-0.1) 01/03/22 14:42 Nucleated RBC % (auto) 0 % 01/03/22 14:42 Nucleated RBCs # 0.0 /100WBC 01/03/22 14:42 Discharge Plan Discharge Patient Disposition: Home Clinical Impression: Fall, Laceration Condition: Stable Prescriptions: No Action midodrine 5 mg tablet 5 mg PO BID 0RF Rx Instructions: do not give last dose of day after 6PM or within 4 hrs of bedtime duloxetine 30 mg capsule,delayed release(DR/EC) 30 mg PO BEDTIME 0RF ascorbate calcium (vitamin C) 500 mg tablet 1 g PO BID 0RF aspirin [Adult Low Dose Aspirin] 81 mg tablet,delayed release (DR/EC) 81 mg PO QAM 0RF carvedilol 12.5 mg tablet 6.25 mg PO BID 0RF Rx Instructions: must administer with a meal/food Rytary 48.75-195 mg capsule, extended release See Rx Instructions .ROUTE .COMPLEX 0RF Rx Instructions: (takes)2 caps @7AM,2 caps @10AM,2 caps @14:00,2 caps @BEDTIME (written) 3 cap @07,2 caps@10,3 cap po @14:00,1 cap at bedtime ropinirole 1 mg tablet 2 mg PO TID@07,10,14 0RF acetaminophen [Tylenol 8 Hour] 650 mg tablet extended release 650 mg PO Q8H PRN (Reason: Pain) 0RF alpha lipoic acid 250 mg capsule 250 mg PO QAM 0RF methenamine hippurate 1 gram tablet 1 g PO BID Qty: 180 3RF Rx Instructions: 1 pill twice a day with 1 g vitamin C each dose. Do not take until completion of BACTRIM course finasteride 5 mg tablet 5 mg PO DAILY Qty: 90 3RF multivitamin Tablet 1 tab PO QAM 0RF Rytary 23.75-95 mg capsule, extended release 1 cap PO QID PRN (Reason: unknown) 0RF Discharge Orders: Discharge ED (Routine); Ordered 01/03/22 Ordered By: Eleazar Rojas Referrals: Emiliano Oliva MD [Primary Care Provider] - Discharge Diet: Usual diet Discharge Activity: Limit activity as instructed Patient Instructions: Laceration (ED), Opioid Safety Activity Restrictions/Additional Instructions: Sutures out in 10 days. 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
[2022-01-03 15:13] LABS: Basophils # 0.1 10^3/uL (0.0-0.1); Basophils % 0.7 %; Eosinophils # 0.1 10^3/uL (0.0-0.8); Eosinophils % 1.1 %; Hematocrit 34.2 % (42.0-52.0); Hemoglobin 10.3 g/dL (11.7-16.6); Lymphocytes # 0.9 10^3/uL (0.8-4.8); Lymphocytes % 10.8 %; Mean Corpuscular HGB Conc 30.1 g/dL (30.0-36.0); Mean Corpuscular Hemoglobin 30.6 pg (28.0-34.0); Mean Corpuscular Volume 101.5 fl (80-94); Mean Platelet Volume 9.1 fL (7.4-10.4); Monocytes # 0.9 10^3/uL (0.2-0.9); Monocytes % 10.5 %; Neutrophils # 6.34 10^3/uL (1.8-7.7); Neutrophils % 76.3 %; Nucleated Red Blood Cells % 0 %; Platelet Count 249 10^3/cmm (130-400); Red Blood Count 3.37 10^6/uL (4.1-5.3); Red Cell Distribution Width 13.2 % (12.1-15.1); White Blood Count 8.3 10^3/uL (4.0-10.0)
[2022-01-03 15:17] VITALS: BP 199/105; PULSE 66; RESP 14; TEMP 37.1; O2SAT 97; BMI 21.9
[2022-01-03 15:23] VITALS: BP 199/105; PULSE 63; RESP 16; O2SAT 96
[2022-01-03] MEDS: ceFAZolin 1,000 MG in sodium chloride 0.9% (plus) 50 ML 100 MG IV (15:30)
[2022-01-03] MEDS: tetanus-dipt-pertussis 0.5 mL SDV IM (15:33)
[2022-01-03 16:03] VITALS: BP 189/101; PULSE 65; RESP 165; O2SAT 97
--- NOTE | 2022-01-03 16:43 | CTR_ITS ---
PROCEDURE INFORMATION: Exam: CT Cervical Spine Without Contrast Exam date and time: 01/03/2022 4:43 PM Age: 76 years old Clinical indication: Injury or trauma; Blunt trauma; Patient HX: Fall while walking -loc w lac to L mandible area TECHNIQUE: Imaging protocol: Computed tomography images of the cervical spine without contrast. Radiation optimization: All CT scans at this facility use at least one of these dose optimization techniques: automated exposure control; mA and/or kV adjustment per patient size (includes targeted exams where dose is matched to clinical indication); or iterative reconstruction. COMPARISON: CT cervical spin wo con* [id number] 12/02/2020 12:53 PM RADIATION DOSE METRICS: Total DLP (mGy-cm): 559.87 FINDINGS: Vertebrae: No acute fracture. Normal alignment. C2-C3: No significant disc protrusion. No severe spinal canal stenosis. No significant neural foraminal narrowing. C3-C4: No significant disc protrusion. No severe spinal canal stenosis. No significant neural foraminal narrowing. C4-C5: No significant disc protrusion. No severe spinal canal stenosis. No significant neural foraminal narrowing. C5-C6: No significant disc protrusion. No severe spinal canal stenosis. No significant neural foraminal narrowing. C6-C7: No significant disc protrusion. No severe spinal canal stenosis. No significant neural foraminal narrowing. C7-T1: No significant disc protrusion. No severe spinal canal stenosis. No significant neural foraminal narrowing. Soft tissues: Unremarkable. Lungs: Lung apices are normal. CT/CT cervical spin wo con* [id number] IMPRESSION: No acute findings.
--- NOTE | 2022-01-03 16:43 | CTR_ITS ---
PROCEDURE INFORMATION: Exam: CT Maxillofacial Without Contrast Exam date and time: 01/03/2022 4:43 PM Age: 76 years old Clinical indication: Injury or trauma; Laceration; Jaw; Left; Without residual foreign body; Patient HX: Fall while walking -loc w lac to L mandible area TECHNIQUE: Imaging protocol: Computed tomography images of the face without contrast. Radiation optimization: All CT scans at this facility use at least one of these dose optimization techniques: automated exposure control; mA and/or kV adjustment per patient size (includes targeted exams where dose is matched to clinical indication); or iterative reconstruction. COMPARISON: CT head wo con* [id number] 01/03/2022 5:20 PM RADIATION DOSE METRICS: Total DLP (mGy-cm): 1771.78 FINDINGS: Orbital cavity: Orbits are normal. Globes are unremarkable. Bones/joints: No acute fracture. Paranasal sinuses: Paranasal sinus opacifications. Soft tissues: Unremarkable. CT/CT facial bones wo con* [id number] IMPRESSION: 1. Negative for fracture or dislocation. 2. Paranasal sinus opacifications.
--- NOTE | 2022-01-03 16:44 | CTR_ITS ---
PROCEDURE INFORMATION: Exam: CT Head Without Contrast Exam date and time: 01/03/2022 4:44 PM Age: 76 years old Clinical indication: Injury or trauma; Blunt trauma (contusions or hematomas); Without loss of consciousness; Patient HX: Fall while walking -loc w lac to L mandible area; Additional info: [place] TECHNIQUE: Imaging protocol: Computed tomography of the head without contrast. Radiation optimization: All CT scans at this facility use at least one of these dose optimization techniques: automated exposure control; mA and/or kV adjustment per patient size (includes targeted exams where dose is matched to clinical indication); or iterative reconstruction. COMPARISON: CT head wo con* [id number] 01/16/2021 7:22 PM RADIATION DOSE METRICS: Total DLP (mGy-cm): 1067.96 FINDINGS: Brain: Moderate diffuse white matter disease likely reflecting chronic microvascular ischemic changes. Cerebral ventricles: No ventriculomegaly. Paranasal sinuses: Paranasal sinus opacifications. Mastoid air cells: Visualized mastoid air cells are well aerated. Bones/joints: Unremarkable. No acute fracture. Soft tissues: Unremarkable. CT/CT head wo con* [id number] IMPRESSION: 1. Negative for intracranial hemorrhage or mass effect. 2. Paranasal sinus opacifications. 3. Moderate diffuse white matter disease likely reflecting chronic microvascular ischemic changes.
[2022-01-03 19:03] VITALS: BP 178/118; PULSE 79; O2SAT 97
== END 2022-01-03 19:17 | disposition home or self-care (01) ==
PROVIDERS: Emergency Provider Family Medicine; PCP Urology
DX: S01.81XA Laceration without foreign body of other part of head, initial encounter (principal); Z79.82 Long term (current) use of aspirin; W01.0XXA Fall on same level from slipping, tripping and stumbling without subsequent striking against object, initial encounter; I25.2 Old myocardial infarction; G20 Parkinson's disease; Z87.891 Personal history of nicotine dependence; Z23 Encounter for immunization
CPT/HCPCS: 12014; 70450; 70486; 72125; 85025; 90471; 90715; 96365; 99283; J0690

== ENCOUNTER → 2022-01-23 09:47 | Outpatient (BNVA) | payer MEDICARE, OTHER, SELFPAY | PROVIDERS: PCP Urology; Visit Provider Urology | DX: N30.80 Other cystitis without hematuria (principal) | CPT/HCPCS: 81003 ==

== ENCOUNTER 2022-07-11 16:39 | Emergency (ER) | payer MEDICARE, OTHER, SELFPAY ==
[2022-07-11 16:42] VITALS: BP 181/96; PULSE 66; RESP 18; TEMP 36.7; O2SAT 98; BMI 19.9
[2022-07-11 16:54] VITALS: BP 179/92; PULSE 66; RESP 18; TEMP 36.7; O2SAT 98
--- NOTE | 2022-07-11 17:17 | XRR_ITS ---
PROCEDURE INFORMATION: Exam: XR Left Wrist Exam date and time: 07/11/2022 5:26 PM Age: 77 years old Clinical indication: Injury or trauma; Fall; Blunt trauma (contusions or hematomas); Wrist; Left; Additional info: Bruises TECHNIQUE: Imaging protocol: Radiologic exam of the Left wrist. Views: 1 or 2 views. 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 Soft tissues: Normal. XR/XR wrist LT 2V [id number] IMPRESSION: No acute findings.
--- NOTE | 2022-07-11 17:17 | CTR_ITS ---
PROCEDURE INFORMATION: Exam: CT Maxillofacial Without Contrast Exam date and time: 07/11/2022 5:35 PM Age: 77 years old Clinical indication: Injury or trauma; Fall; Blunt trauma (contusions or hematomas); Forehead and ocular (eye or eyeball) and orbit/periorbital; Left TECHNIQUE: Imaging protocol: Computed tomography of the of the face without contrast. Radiation optimization: All CT scans at this facility use at least one of these dose optimization techniques: automated exposure control; mA and/or kV adjustment per patient size (includes targeted exams where dose is matched to clinical indication); or iterative reconstruction. COMPARISON: CT facial bones wo con* [id number] 01/03/2022 5:23 PM RADIATION DOSE METRICS: Total DLP (mGy-cm): 551.3 FINDINGS: Orbital cavities: Orbits are normal. Globes are unremarkable. Bones/joints: No acute fracture. Paranasal sinuses: Severe chronic right maxillary sinus disease with central calcification. Soft tissues: Soft tissue swelling and/or hematoma over the left orbit and forehead. Dental: Examination is limited secondary to metallic artifact from dental fillings and/or dental hardware. CT/CT facial bones wo con* [id number] IMPRESSION: 1. Severe chronic right maxillary sinus disease with central calcification. 2. Soft tissue swelling and/or hematoma over the left orbit and forehead.
--- NOTE | 2022-07-11 17:17 | XRR_ITS ---
PROCEDURE INFORMATION: Exam: XR Left Elbow Exam date and time: 07/11/2022 5:22 PM Age: 77 years old Clinical indication: Injury or trauma; Fall; Blunt trauma (contusions or hematomas); Elbow; Left; Additional info: Pain TECHNIQUE: Imaging protocol: Radiologic exam of the Left elbow. Views: 1 or 2 views. COMPARISON: No relevant prior studies available. FINDINGS: Bones/joints: Normal. Soft tissues: Normal. XR/XR elbow LT 2V [id number] IMPRESSION: No acute findings.
--- NOTE | 2022-07-11 17:17 | CTR_ITS ---
PROCEDURE INFORMATION: Exam: CT Head Without Contrast Exam date and time: 07/11/2022 5:35 PM Age: 77 years old Clinical indication: Injury or trauma; Fall; Blunt trauma (contusions or hematomas) TECHNIQUE: Imaging protocol: Computed tomography of the head without contrast. Radiation optimization: All CT scans at this facility use at least one of these dose optimization techniques: automated exposure control; mA and/or kV adjustment per patient size (includes targeted exams where dose is matched to clinical indication); or iterative reconstruction. COMPARISON: CT head wo con* [id number] 01/03/2022 5:20 PM RADIATION DOSE METRICS: Total DLP (mGy-cm): 967.3 FINDINGS: Brain: Severe calcified intracranial atherosclerotic vessel disease. Mild to moderate cerebral atrophy and ischemic leukoencephalopathy. Cerebral ventricles: No ventriculomegaly. Paranasal sinuses: Moderate right maxillary sinus disease. Mastoid air cells: Visualized mastoid air cells are well aerated. Bones/joints: Unremarkable. No acute fracture. Soft tissues: Unremarkable. CT/CT head wo con* [id number] IMPRESSION: 1. Moderate right maxillary sinus disease. 2. No acute intracranial findings.
--- NOTE | 2022-07-11 17:17 | XRR_ITS ---
PROCEDURE INFORMATION: Exam: XR Pelvis Exam date and time: 07/11/2022 5:27 PM Age: 77 years old Clinical indication: Injury or trauma; Fall; Blunt trauma (contusions or hematomas); Left; Pelvic region TECHNIQUE: Imaging protocol: Radiologic exam of the pelvis. Views: 1 or 2 view. COMPARISON: CT angio chest abdomen pelvis 05/05/2016 2:01 AM FINDINGS: Bones/joints: Unremarkable. No acute fracture. Soft tissues: Unremarkable. Vasculature: One or more calcified pelvic phleboliths. XR/XR pelvis 1-2V* [id number] IMPRESSION: 1. No acute findings. 2. If pain persists, CT may be helpful to rule out occult pathology if clinically indicated.
--- NOTE | 2022-07-11 17:17 | CTR_ITS ---
PROCEDURE INFORMATION: Exam: CT Cervical Spine Without Contrast Exam date and time: 07/11/2022 5:35 PM Age: 77 years old Clinical indication: Injury or trauma; Fall; Blunt trauma TECHNIQUE: Imaging protocol: Computed tomography of the cervical spine without contrast. Radiation optimization: All CT scans at this facility use at least one of these dose optimization techniques: automated exposure control; mA and/or kV adjustment per patient size (includes targeted exams where dose is matched to clinical indication); or iterative reconstruction. COMPARISON: CT cervical spin wo con* [id number] 01/03/2022 5:26 PM RADIATION DOSE METRICS: Total DLP (mGy-cm): 259.9 FINDINGS: Bones/joints: Levoscoliosis. Paranasal sinuses: Severe chronic right maxillary sinus disease. Dental: Examination is limited secondary to metallic artifact from dental fillings and/or dental hardware. Lungs: Lung apices are normal. Soft tissues: Ligamentum nuchae ossification/calcification. CT/CT cervical spin wo con* [id number] IMPRESSION: 1. Severe chronic right maxillary sinus disease. 2. No acute C-spine findings.
[2022-07-11 17:24] VITALS: RESP 17
--- NOTE | 2022-07-11 17:26 | ED_ITS ---
HPI - General Adult General: Chief complaint: Fall Stated complaint: fall today/head injury Time Seen by Provider: 07/11/22 17:04 History of Present Illness: Patient is a 77-year-old male with a history of Parkinson's disease, neuropathy, prior IA presenting to emergency room for fall. Around 3 AM this morning, patient was walking to the bathroom after getting out of bed when she tripped and fell. Patient reports left perioral bruises and swelling.. Patient also complains of left elbow pain. Patient denies any associate chest pain, shortness of palpitation lightheadedness prior to the episode of fall. Patient is on anticoagulation. No other focal complaints. Onset: 3am Duration:once Location:home Severity:moderate Associated symptoms: Deny chest pain, dyspnea, nausea, palpitations or vomiting Review of Systems Const: Denies: fever(s) or chills Eyes: Denies: change in vision ENMT: Denies: mouth pain Card: Denies: chest pain or palpitations Resp: Denies: dyspnea or non-productive cough GI: Denies: abdominal pain, nausea, vomiting or diarrhea : Denies: dysuria Musc: Denies: extremity pain Skin/Breast: Reports: new lesions (+L facial hematoma and bruises) Neuro: Denies: weakness in extremities Psych: Reports: other (Normal mood) Jake/Lymph: Denies: easy bruising PFSH ED PFSH: Medical History Benign prostatic hyperplasia with lower urinary tract symptoms Gross hematuria Hx of cataract Hx of myocardial infarction Incomplete bladder emptying Neuropathy Parkinson disease Pyuria Surgical History Hx of mitral valve replacement Family History Father Stroke Mother CAD (coronary artery disease) Social History Smoking and tobacco status: former smoker Alcohol intake: never Adopted: No Caregiver/support person: No Lives independently: No Household members: spouse Marital status: Current occupational status: retired History of recent travel: No Physical Exam Const: COMMON NORMALS: alert HENMT: HEAD & SCALP: other (+L facial hematoma including periorbital hematoma) MOUTH: moist mucous membranes not abnormal Eye: COMMON NORMALS: EOMs intact bilaterally and conjunctivae normal CONJUNCTIVA: Yes conjunctivae normal Neck/C-Spine: COMMON NORMALS: full ROM and supple Resp: COMMON NORMALS: normal respiratory effort and clear to auscultation bilaterally AUSCULTATION: clear to auscultation bilaterally Cardio: COMMON NORMALS: regular rate RATE: regular rate GI: COMMON NORMALS: Soft to palpation and non-tender PALPATION: Yes Soft to palpation Extremity: COMMON NORMALS: full ROM Neuro: SENSORIUM/ORIENTATION: Yes alert MOTOR EXAM: No Abnormal motor strength present and Other motor observations present (no focal motor deficits) Psych: COMMON NORMALS: speech normal SPEECH: Yes normal speech MOOD & AFFECT: Yes euthymic mood Skin: NARRATIVE SKIN EXAM: +L periorbital hematoma +L facial hematoma +L elbow abrasion +L suprorbital linear laceration measuring 2cm Procedures Laceration Laceration 1: Site: face and other Side (If applicable): left Size (cm): 2 Description: linear Depth: simple, single layer Skin layer closed with: other (+dermabond) Course Vital Signs: Vital signs: Vital Signs Temperature 98.9 F 07/11/22 19:22 Pulse Rate 78 07/11/22 19:22 Respiratory Rate 18 07/11/22 19:22 Blood Pressure 182/94 07/11/22 19:22 Pulse Oximetry 95 07/11/22 19:22 Oxygen Delivery Me thod 07/11/22 16:54 MDM - General Adult Medical Decision Making 77-year-old male presenting to emergency room after episode of fall. Patient was seen yesterday at [facility]. Patient on physical exam has facial hematoma with bruises. Patient also have left elbow bruise. Imaging study negative for any acute findings. Patient is noted to have chronic right-sided sinus disease. This was discussed extensively with patient's . I have offered suture however family declined opting for Dermabond for patient's supraorbital laceration. Explained to the patient that there is risk for future is cosmetic deformity. Patient verbalized understanding of everything discussed today and still elects to have Dermabond. Rx: Tylenol, lidocaine patch, and menthol PRN pain Disposition: Discharge. Patient counseled regarding diagnostic impression, treatment plan. Patient given ED strict return precautions to return for continuation, worsening, or development of new symptoms. Instructed to f/u w/ PCP regarding symptoms today. Patient verbalized understanding. Lab Data Radiology Impressions Cervical Spine CT 07/11/22 17:17 IMPRESSION: 1. Severe chronic right maxillary sinus disease. 2. No acute C-spine findings. Elbow X-Ray 07/11/22 17:17 IMPRESSION: No acute findings. Face CT 07/11/22 17:17 IMPRESSION: 1. Severe chronic right maxillary sinus disease with central calcification. 2. Soft tissue swelling and/or hematoma over the left orbit and forehead. Head CT 07/11/22 17:17 IMPRESSION: 1. Moderate right maxillary sinus disease. 2. No acute intracranial findings. Pelvis X-Ray 07/11/22 17:17 IMPRESSION: 1. No acute findings. 2. If pain persists, CT may be helpful to rule out occult pathology if clinically indicated. Wrist X-Ray 07/11/22 17:17 IMPRESSION: No acute findings. Imaging Data Other Imaging: Radiologist's impression: [address] [address] XRay Report Signed Patient: Wayne Doshi Unit #: [id number] : 1945 Age/Sex: 77 / M ADM Date: 07/11/22 Loc: ER Room/Bed: Attending Dr: Ordering Provider/Ordering MD: Moise Thurston MD Date of Service: 07/11/22 Procedure(s): XR wrist LT 2V [id number] Accession Number(s): [id number] Report Number: [id number] PROCEDURE INFORMATION: Exam: XR Left Wrist Exam date and time: 07/11/2022 5:26 PM Age: 77 years old Clinical indication: Injury or trauma; Fall; Blunt trauma (contusions or hematomas); Wrist; Left; Additional info: Bruises TECHNIQUE: Imaging protocol: Radiologic exam of the Left wrist. Views: 1 or 2 views. 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 Soft tissues: Normal. XR/XR wrist LT 2V [id number] IMPRESSION: ?No acute findings. ? Dictated By: Kyle Gilman MD Signed By: Kyle Gilman MD Signed Date/Time: 07/11/221756 DD/ 25 [place] [address] XRay Report Signed Patient: Wayne Doshi Unit #: [id number] : 1945 Age/Sex: 77 / M ADM Date: 07/11/22 Loc: ER Room/Bed: Attending Dr: Ordering Provider/Ordering MD: Moise Thurston MD Date of Service: 07/11/22 Procedure(s): XR pelvis 1-2V* [id number] Accession Number(s): [id number] Report Number: [id number] PROCEDURE INFORMATION: Exam: XR Pelvis Exam date and time: 07/11/2022 5:27 PM Age: 77 years old Clinical indication: Injury or trauma; Fall; Blunt trauma (contusions or hematomas); Left; Pelvic region TECHNIQUE: Imaging protocol: Radiologic exam of the pelvis. Views: 1 or 2 view. COMPARISON: CT angio chest abdomen pelvis 05/05/2016 2:01 AM FINDINGS: Bones/joints: Unremarkable. No acute fracture. Soft tissues: Unremarkable. Vasculature: One or more calcified pelvic phleboliths. XR/XR pelvis 1-2V* [id number] IMPRESSION: 1. No acute findings. 2. If pain persists, CT may be helpful to rule out occult pathology if clinically indicated. ? Dictated By: Kyle Gilman MD Signed By: Kyle Gilman MD Signed Date/Time: 07/11/221755 DD/ [address] [address] [address] Scan Report Signed Patient: Wayne Doshi Unit #: [id number] : 1945 Age/Sex: 77 / M ADM Date: 07/11/22 Loc: ER Room/Bed: Attending Dr: Ordering Provider/Ordering MD: Moise Thurston MD Date of Service: 07/11/22 Procedure(s): CT head wo con* [id number] Accession Number(s): [id number] Report Number: [id number] PROCEDURE INFORMATION: Exam: CT Head Without Contrast Exam date and time: 07/11/2022 5:35 PM Age: 77 years old Clinical indication: Injury or trauma; Fall; Blunt trauma (contusions or hematomas) TECHNIQUE: Imaging protocol: Computed tomography of the head without contrast. Radiation optimization: All CT scans at this facility use at least one of these dose optimization techniques: automated exposure control; mA and/or kV adjustment per patient size (includes targeted exams where dose is matched to clinical indication); or iterative reconstruction. COMPARISON: CT head wo con* [id number] 01/03/2022 5:20 PM RADIATION DOSE METRICS: Total DLP (mGy-cm): 967.3 FINDINGS: Brain: Severe calcified intracranial atherosclerotic vessel disease. Mild to moderate cerebral atrophy and ischemic leukoencephalopathy. Cerebral ventricles: No ventriculomegaly. Paranasal sinuses: Moderate right maxillary sinus disease. Mastoid air cells: Visualized mastoid air cells are well aerated. Bones/joints: Unremarkable. No acute fracture. Soft tissues: Unremarkable. CT/CT head wo con* [id number] IMPRESSION: 1. Moderate right maxillary sinus disease. 2. No acute intracranial findings. ? Dictated By: Kyle Gilman MD Signed By: Kyle Gilman MD Signed Date/Time: 07/11/22 180 DD/ [address] [address] [address] Scan Report Signed Patient: Wayne Doshi Unit #: [id number] : 1945 Age/Sex: 77 / M ADM Date: 07/11/22 Loc: ER Room/Bed: Attending Dr: Ordering Provider/Ordering MD: Moise Thurston MD Date of Service: 07/11/22 Procedure(s): CT facial bones wo con* [id number] Accession Number(s): [id number] Report Number: [id number] PROCEDURE INFORMATION: Exam: CT Maxillofacial Without Contrast Exam date and time: 07/11/2022 5:35 PM Age: 77 years old Clinical indication: Injury or trauma; Fall; Blunt trauma (contusions or hematomas); Forehead and ocular (eye or eyeball) and orbit/periorbital; Left TECHNIQUE: Imaging protocol: Computed tomography of the of the face without contrast. Radiation optimization: All CT scans at this facility use at least one of these dose optimization techniques: automated exposure control; mA and/or kV adjustment per patient size (includes targeted exams where dose is matched to clinical indication); or iterative reconstruction. COMPARISON: CT facial bones wo con* [id number] 01/03/2022 5:23 PM RADIATION DOSE METRICS: Total DLP (mGy-cm): 551.3 FINDINGS: Orbital cavities: Orbits are normal. Globes are unremarkable. Bones/joints: No acute fracture. Paranasal sinuses: Severe chronic right maxillary sinus disease with central calcification. Soft tissues: Soft tissue swelling and/or hematoma over the left orbit and forehead. Dental: Examination is limited secondary to metallic artifact from dental fillings and/or dental hardware. CT/CT facial bones wo con* [id number] IMPRESSION: 1. Severe chronic right maxillary sinus disease with central calcification. 2. Soft tissue swelling and/or hematoma over the left orbit and forehead. ? Dictated By: Kyle Gilman MD Signed By: Kyle Gilman MD Signed Date/Time: 07/11/22 180 DD/ [address] [place] [address] XRay Report Signed Patient: Wayne Doshi Unit #: [id number] : 1945 Age/Sex: 77 / M ADM Date: 07/11/22 Loc: ER Room/Bed: Attending Dr: Ordering Provider/Ordering MD: Moise Thurston MD Date of Service: 07/11/22 Procedure(s): XR elbow LT 2V 95139 Accession Number(s): [id number] Report Number: [id number] PROCEDURE INFORMATION: Exam: XR Left Elbow Exam date and time: 07/11/2022 5:22 PM Age: 77 years old Clinical indication: Injury or trauma; Fall; Blunt trauma (contusions or hematomas); Elbow; Left; Additional info: Pain TECHNIQUE: Imaging protocol: Radiologic exam of the Left elbow. Views: 1 or 2 views. COMPARISON: No relevant prior studies available. FINDINGS: Bones/joints: Normal. Soft tissues: Normal. XR/XR elbow LT 2V 76233 IMPRESSION: No acute findings. ? Dictated By: Kyle Gilman MD Signed By: Kyle Gilman MD Signed Date/Time: 07/11/221757 DD/ 21 Discharge Plan Discharge Patient Disposition: Home Clinical Impression: Fall, Bruise of face, Facial hematoma Condition: Stable Prescriptions: No Action midodrine 5 mg tablet 5 mg PO BID Rx Instructions: do not give last dose of day after 6PM or within 4 hrs of bedtime duloxetine 30 mg capsule,delayed release(DR/EC) 30 mg PO BEDTIME ascorbate calcium (vitamin C) 500 mg tablet 1 g PO DAILY aspirin [Adult Low Dose Aspirin] 81 mg tablet,delayed release (DR/EC) 81 mg PO QAM carvedilol 12.5 mg tablet 6.25 mg PO BID Rx Instructions: must administer with a meal/food Rytary 48.75-195 mg capsule, extended release See Rx Instructions .ROUTE .COMPLEX Rx Instructions: (takes)2 caps @7AM,2 caps @10AM,2 caps @14:00,2 caps @BEDTIME (written) 3 cap @07,2 caps@10,3 cap po @14:00,1 cap at bedtime ropinirole 1 mg tablet 2 mg PO TID@07,10,14 acetaminophen [Tylenol 8 Hour] 650 mg tablet extended release 650 mg PO Q8H PRN (Reason: Pain) alpha lipoic acid 250 mg capsule 250 mg PO QAM finasteride 5 mg tablet 5 mg PO DAILY Qty: 90 3RF methenamine hippurate 1 gram tablet See Rx Instructions .ROUTE .COMPLEX Qty: 180 3RF Dose Instruction: TAKE 1 TABLET BY MOUTH TWICE DAILY FOR RECURRENT UTI. TAKE WITH 1G OF VITAMIN C FOR EACH DOSE Rx Instructions: TAKE 1 TABLET BY MOUTH TWICE DAILY FOR RECURRENT UTI. TAKE WITH 1G OF VITAMIN C FOR EACH DOSE multivitamin Tablet 1 tab PO QAM Rytary 23.75-95 mg capsule, extended release 1 cap PO QID PRN (Reason: unknown) Discharge Orders: Discharge ED (Routine); Ordered 07/11/22 Ordered By: Moise Thurston Discharge Diet: Advance as tolerated Discharge Activity: Increase activity as tolerated Activity Restrictions/Additional Instructions: Come back if you have any new or concerning issues. Coding Level of Care Code ED Thermal Technician for Chg Fwd Exam Comprehensive
[2022-07-11] MEDS: acetaminophen 500 mg Tablet PO (17:32)
[2022-07-11 19:22] VITALS: BP 182/94; PULSE 78; RESP 18; TEMP 37.2; O2SAT 95
== END 2022-07-11 19:24 | disposition home or self-care (01) ==
PROVIDERS: Emergency Provider Emergency Medicine
DX: S00.83XA Contusion of other part of head, initial encounter (principal); S01.81XA Laceration without foreign body of other part of head, initial encounter; Z79.82 Long term (current) use of aspirin; I25.2 Old myocardial infarction; G20 Parkinson's disease; Z87.891 Personal history of nicotine dependence; W01.0XXA Fall on same level from slipping, tripping and stumbling without subsequent striking against object, initial encounter
CPT/HCPCS: 12011; 70450; 70486; 72125; 72170; 73070; 73100; 99285

== ENCOUNTER 2022-09-10 06:00 | Outpatient (RCR) | payer MEDICARE, OTHER, SELFPAY | END 2022-09-30 23:59 | disposition home or self-care (01) | LOC: SOT 06:00 | PROVIDERS: Visit Provider Internal Medicine | DX: G20 Parkinson's disease (principal) | CPT/HCPCS: 97167; 97530 ==

== ENCOUNTER 2022-11-11 08:12 | Emergency (ER) | payer MEDICARE, OTHER, SELFPAY ==
[2022-11-11 08:14] VITALS: BP 172/113; PULSE 98; RESP 16; O2SAT 89; BMI 19.8
--- NOTE | 2022-11-11 08:43 | XRR_ITS ---
PROCEDURE INFORMATION: Exam: XR Pelvis Exam date and time: 11/11/2022 8:49 AM Age: 77 years old Clinical indication: Injury or trauma; Fall; Blunt trauma (contusions or hematomas); Bilateral; Pelvic region; Injury details: History of parkinson's he was reaching for some close this morning he tripped and fell. I believe he was down for about 2 hours he denies striking his head he complains of some pelvic pain refers to come to the pubic bone he does have a small skin tears on the upper back. TECHNIQUE: Imaging protocol: Radiologic exam of the pelvis. Views: 1 or 2 view. COMPARISON: CR XR pelvis 1-2V* [id number] 07/11/2022 5:27 PM FINDINGS: Bones/joints: There are no acute fractures or dislocations of the pelvis. Unchanged mild contour deformity of the right proximal femur is seen, which may be related to old healed fracture. There is generalized osteopenia. Mild right and [id number] left hip joint space narrowing is seen, suggestive of osteoarthritic change. Mild symphysis pubis and moderate sacroiliac joint degenerative changes are seen. The pelvic and obturator rings are intact. The pubic rami are intact. Soft tissues: Multiple phleboliths are seen in the pelvis moderate to severe atherosclerotic vascular calcifications.. No radiopaque foreign bodies. Notes: If there is further concern, recommend follow-up radiographs or MRI for complete assessment. XR/XR pelvis 1-2V* [id number] IMPRESSION: No definite acute pelvic fractures, as noted above.
--- NOTE | 2022-11-11 08:44 | XRR_ITS ---
PROCEDURE INFORMATION: Exam: XR Chest Exam date and time: 11/11/2022 8:47 AM Age: 77 years old Clinical indication: Injury or trauma; Fall; Blunt trauma (contusions or hematomas); Injury details: History of parkinson's he was reaching for some close this morning he tripped and fell. I believe he was down for about 2 hours he denies striking his head he complains of some pelvic pain refers to come to the pubic bone he does have a small skin tears on the upper back. Prior surgery; Surgery type: Mitral valve; Additional info: Dyspnea/cough TECHNIQUE: Imaging protocol: Radiologic exam of the chest. Views: 1 view. COMPARISON: CR XR chest 2V* [id number] 06/04/2016 11:24 AM FINDINGS: Lungs: There are normal lung volumes. No confluent airspace opacities in the lungs. Pleural spaces: No pleural effusion. No pneumothorax. Heart/Mediastinum: The heart size is at the upper limit of normal. Status post prior median sternotomy and aortic valve replacement surgery with sternal wires.There is a mildly tortuous thoracic aorta. Bones/joints: No acute osseous abnormalities seen. There is osteopenia. Mild right shoulder degenerative changes. Soft tissues: Multiple external densities are seen overlying the chest, limiting assessment. Other findings: The the exam is limited due to the patient's hand overlying the left lower chest. XR/XR chest 1V portable [id number] IMPRESSION: Limited chest radiograph, as noted above. No airspace opacities seen in the lungs.
--- NOTE | 2022-11-11 09:00 | W.ED.FALL ---
HPI - Fall General: Chief Complaint: Fall Stated Complaint: Fall Time Seen by Provider: 11/11/22 08:27 Source: patient and EMS Mode of arrival: EMS History of Present Illness: 77-year-old male with a history of Parkinson's he was reaching for some close this morning he tripped and fell. I believe he was down for about 2 hours he denies striking his head he complains of some pelvic pain refers to come to the pubic bone he does have a small skin tears on the upper back. He is alert and oriented he is aware of what happened. He denies any other injury or pain. MD complaint: fall Onset (ago): hour(s) Fall from: standing Fall witnessed: no Place fall occurred: home Loss of consciousness: None Prolonged down time: yes and hour(s) (2) Context: tripped/slipped Location of injury: pelvis Associated symptoms-after fall: Reports difficulty walking and weakness; Denies abdominal pain, chest pain, confusion, headache(s), hematuria, lightheadedness, neck pain, numbness, short of breath or vertigo Review of Systems Const: Denies: fever(s), chills, body aches, change in appetite, fatigue or malaise ENMT: Denies: throat pain, ear or mastoid pain, nasal discharge or nasal congestion Card: Denies: chest pain or lightheadedness Resp: Denies: dyspnea, productive cough or non-productive cough GI: Denies: abdominal pain : Denies: dysuria, urinary frequency, urinary urgency or hematuria Musc: Denies: neck pain Skin/Breast: Denies: rash or pruritus Neuro: Reports: difficulty walking; Denies: headache(s), vertigo or confusion PFSH ED PFSH: Medical History Benign prostatic hyperplasia with lower urinary tract symptoms Gross hematuria Hx of cataract Hx of myocardial infarction Incomplete bladder emptying Neuropathy Parkinson disease Pyuria Surgical History Hx of mitral valve replacement Family History Father Stroke Mother CAD (coronary artery disease) Social History Smoking and tobacco status: former smoker Alcohol intake: never Adopted: No Caregiver/support person: No Lives independently: No Household members: spouse Marital status: Current occupational status: retired History of recent travel: No Physical Exam Const: GENERAL APPEARANCE: cooperative and comfortable ORIENTATION/CONSCIOUSNESS: Yes awake, Yes oriented to person, Yes oriented to place and Yes oriented to time HENMT: COMMON NORMALS: normocephalic, atraumatic and hearing grossly normal bilaterally HEAD & SCALP: normocephalic and atraumatic Resp: COMMON NORMALS: normal respiratory effort, No retractions, No use of accessory muscles and clear to auscultation bilaterally AUSCULTATION: clear to auscultation bilaterally Cardio: COMMON NORMALS: regular rate, regular rhythm and No murmurs present (Cardio) RATE: regular rate RHYTHM: regular rhythm GI: COMMON NORMALS: Soft to palpation and No hepatosplenomegaly present AUSCULTATION: Yes normoactive bowel sounds PALPATION: Yes Soft to palpation, No Tenderness to palpation present (GI), No Guarding due to palpation present (GI) and Yes No hepatosplenomegaly present Extremity: COMMON NORMALS: normal to inspection, capillary refill normal, no clubbing, cyanosis or edema, no calf tenderness and no pedal edema Neuro: SENSORIUM/ORIENTATION: Yes oriented to person, Yes oriented to place and Yes oriented to time Skin: COMMON NORMALS: no rashes or lesions noted GENERAL SKIN EXAM: no rashes or lesions noted Course Vital Signs: Vital signs: Vital Signs Pulse Rate 77 11/11/22 11:50 Respiratory Rate 20 H 11/11/22 11:50 Blood Pressure 160/99 11/11/22 11:50 Pulse Oximetry 92 11/11/22 11:50 Oxygen Delivery Me thod 11/11/22 10:10 MDM - Fall Medical Decision Making Fall due to his Parkinson's and no significant injury imaging labs and EKG reviewed. Blood pressure is elevated. Will discharge home add amlodipine 2.5 mg daily and follow-up with his primary care doctor within the next week to reevaluate continue other medications as previously prescribed Medical Records I reviewed the patient's medical records. Lab Data I reviewed the patient's lab results. 11/11/22 09:00 11/11/22 09:00 Radiology Impressions Pelvis X-Ray 11/11/22 08:43 IMPRESSION: No definite acute pelvic fractures, as noted above. Chest X-Ray 11/11/22 08:44 IMPRESSION: Limited chest radiograph, as noted above. No airspace opacities seen in the lungs. Cervical Spine CT 11/11/22 09:33 IMPRESSION: No evidence of acute fracture or dislocation. Head CT 11/11/22 09:33 IMPRESSION: 1. No evidence of intracranial hemorrhage or mass effect. 2. Moderate to advanced small vessel changes. Moderate parenchymal volume loss. 3. Intracranial vascular calcification. 4. Chronic inspissated secretions in the RIGHT maxillary sinus. 5. No acute intracranial findings. Laboratory Results WBC 8.6 10^3/uL (4.0-10.0) 11/11/22 09:00 RBC 4.34 10^6/uL (4.1-5.3) 11/11/22 09:00 Hgb 13.4 g/dL (11.7-16.6) 11/11/22 09:00 Hct 41.3 % (42.0-52.0) L 11/11/22 09:00 MCV 95.2 fl (80-94) H 11/11/22 09:00 MCH 30.9 pg (28.0-34.0) 11/11/22 09:00 MCHC 32.4 g/dL (30.0-36.0) 11/11/22 09:00 RDW 13.4 % (12.1-15.1) 11/11/22 09:00 Plt Count 218 10^3/cmm (130-400) 11/11/22 09:00 MPV 9.5 fL (7.4-10.4) 11/11/22 09:00 Neut % (Auto) 81.7 % 11/11/22 09:00 Lymph % (Auto) 9.1 % 11/11/22 09:00 [place] % (Auto) 8.4 % 11/11/22 09:00 Eos % (Auto) 0.2 % 11/11/22 09:00 Baso % (Auto) 0.3 % 11/11/22 09:00 Neut # (Auto) 7.03 10^3/uL (1.8-7.7) 11/11/22 09:00 Lymph # (Auto) 0.8 10^3/uL (0.8-4.8) 01/11/23 09:00 [place] # (Auto) 0.7 10^3/uL (0.2-0.9) 11/11/22 09:00 Eos # (Auto) 0.0 10^3/uL (0.0-0.8) 11/11/22 09:00 Baso # (Auto) 0.0 10^3/uL (0.0-0.1) 11/11/22 09:00 Nucleated RBC % (auto) 0 % 11/11/22 09:00 Nucleated RBCs # 0.0 /100WBC 11/11/22 09:00 Sodium 138 mmol/L (136-145) 11/11/22 09:00 Potassium 4.2 mmol/L (3.5-5.1) 11/11/22 09:00 Chloride 103 mmol/L (98-107) 11/11/22 09:00 Carbon Dioxide 25 mmol/L (22-29) 11/11/22 09:00 Anion Gap 14.2 (5-19) 11/11/22 09:00 BUN 24 mg/dL (8-23) H 11/11/22 09:00 Creatinine 0.6 mg/dL (0.7-1.2) L 11/11/22 09:00 GFR Calculation Not Reportable 11/11/22 09:00 Glucose 97 mg/dL (65-115) 11/11/22 09:00 Calculated Osmolality 290 mOsm/kg (285-295) 11/11/22 09:00 Calcium 9.1 mg/dL (8.5-10.5) 11/11/22 09:00 Total Bilirubin 0.8 mg/dL (0.15-1.2) 11/11/22 09:00 AST 16 U/L (0-40) 11/11/22 09:00 ALT 16 U/L (0-41) 11/11/22 09:00 Alkaline Phosphatase 89 U/L (40-130) 11/11/22 09:00 Total Protein 7.5 g/dL (6.6-8.7) 11/11/22 09:00 Albumin 4.1 g/dL (3.5-5.2) 11/11/22 09:00 Globulin 3.4 g/dL (1.3-4.6) 11/11/22 09:00 Discharge Plan Discharge Patient Disposition: Home Clinical Impression: Fall, Parkinson's disease, Hypertension Condition: Stable Prescriptions: New amlodipine 2.5 mg tablet 2.5 mg PO DAILY Qty: 30 0RF Changed midodrine 5 mg tablet 2.5 mg PO BID Qty: 15 0RF Rx Instructions: do not give last dose of day after 6PM or within 4 hrs of bedtime No Action ascorbate calcium (vitamin C) 500 mg tablet 1 g PO BID aspirin [Adult Low Dose Aspirin] 81 mg tablet,delayed release (DR/EC) 81 mg PO QAM carvedilol 12.5 mg tablet 6.25 mg PO BID Rx Instructions: must administer with a meal/food Rytary 48.75-195 mg capsule, extended release 2 cap PO QID ropinirole 1 mg tablet 2 mg PO TID@07,10,14 acetaminophen [Tylenol 8 Hour] 650 mg tablet extended release 650 mg PO Q8H PRN (Reason: Pain) finasteride 5 mg tablet 5 mg PO DAILY Qty: 90 3RF methenamine hippurate 1 gram tablet See Rx Instructions .ROUTE .COMPLEX Qty: 180 3RF Dose Instruction: TAKE 1 TABLET BY MOUTH TWICE DAILY FOR RECURRENT UTI. TAKE WITH 1G OF VITAMIN C FOR EACH DOSE Rx Instructions: TAKE 1 TABLET BY MOUTH TWICE DAILY FOR RECURRENT UTI. TAKE WITH 1G OF VITAMIN C FOR EACH DOSE multivitamin Tablet 1 tab PO QAM Rytary 23.75-95 mg capsule, extended release 1 cap PO QID PRN (Reason: parkinsons) duloxetine 60 mg capsule,delayed release(DR/EC) 60 mg PO DAILY ferrous sulfate 324 mg (65 mg iron) Tablet,Delayed Release (Dr/Ec) 324 mg PO EVERY OTHER DAY alpha lipoic acid 200 mg Capsule 200 mg PO DAILY Inbrija 42 mg capsule, w/inhalation device 42 mg INHALATION Q4H PRN (Reason: Parkinsons) Discharge Orders: Discharge ED (Routine); Ordered 11/11/22 Ordered By: Eleazar Rojas Activity Restrictions/Additional Instructions: You were seen today after a fall. Suspect your fall is in large part due to your Parkinson's. Your blood pressure is also significantly elevated. It did improve with medications given in the emergency room. There were no fractures on any of the imaging done today recommend you continue all of your current medications and add amlodipine 2.5 mg once daily. Recheck with your primary care doctor within the next week. Decrease the midodrine to 2.5 mg daily Coding Level of Care Code ED Flat Polisher for Stacey Fwd Exam Detailed
[2022-11-11 09:08] LABS: Basophils % 0.3 %; Eosinophils % 0.2 %; Hematocrit 41.3 % (42.0-52.0); Hemoglobin 13.4 g/dL (11.7-16.6); Lymphocytes # 0.8 10^3/uL (0.8-4.8); Lymphocytes % 9.1 %; Mean Corpuscular HGB Conc 32.4 g/dL (30.0-36.0); Mean Corpuscular Hemoglobin 30.9 pg (28.0-34.0); Mean Corpuscular Volume 95.2 fl (80-94); Mean Platelet Volume 9.5 fL (7.4-10.4); Monocytes # 0.7 10^3/uL (0.2-0.9); Monocytes % 8.4 %; Neutrophils # 7.03 10^3/uL (1.8-7.7); Neutrophils % 81.7 %; Nucleated Red Blood Cells % 0 %; Platelet Count 218 10^3/cmm (130-400); Red Blood Count 4.34 10^6/uL (4.1-5.3); Red Cell Distribution Width 13.4 % (12.1-15.1); White Blood Count 8.6 10^3/uL (4.0-10.0)
[2022-11-11 09:18] VITALS: BP 197/122; PULSE 97; RESP 14; O2SAT 91
[2022-11-11 09:27] LABS: Alanine Aminotransferase 16 U/L (0-41); Albumin Level 4.1 g/dL (3.5-5.2); Alkaline Phosphatase 89 U/L (40-130); Anion Gap 14.2 (5-19); Aspartate Amino Transferase 16 U/L (0-40); Blood Urea Nitrogen 24 mg/dL (8-23); Calcium 9.1 mg/dL (8.5-10.5); Carbon Dioxide 25 mmol/L (22-29); Chloride 103 mmol/L (98-107); Creatinine Clr Calc Pharmacy 75.1317; Globulin 3.4 g/dL (1.3-4.6); Glucose 97 mg/dL (65-115); Osmolality Calculated 290 mOsm/kg (285-295); Potassium 4.2 mmol/L (3.5-5.1); Sodium 138 mmol/L (136-145); Total Bilirubin 0.8 mg/dL (0.15-1.2); Total Protein 7.5 g/dL (6.6-8.7)
--- NOTE | 2022-11-11 09:33 | CT_ITS ---
WS: [id number] CT CERVICAL TRAUMA TECHNIQUE: Noncontrast CT of the cervical spine with coronal and sagittal reformatted images. CLINICAL INFORMATION: fall COMPARISON: July 11, 2022 DLP: 1483.[address] scans at [facility] use at least one of these dose optimization techniques: automated e xposure control; mA and/or kV adjustment per patient size (includes targeted exams where dose is matc hed to clinical indication); or iterative reconstruction. FINDINGS: Exaggeration of the normal cervical lordosis. Moderate spondylitic changes with multilevel moderate t o advanced facet arthropathy. Degenerative changes at the C1-C2 articulation. Slight anterolisthesis C5 on C6. Normal craniocervical junction. Normal C1-C2 articulation. Dens is normal in appearance. No rmal occipital condyles. No high-grade spinal canal narrowing. Normal C1 ring. No evidence of acute f racture or dislocation. Normal prevertebral soft tissues. Mastoids air cells are well aerated. CT/CT cervical spin wo con* [id number] IMPRESSION: No evidence of acute fracture or dislocation.
--- NOTE | 2022-11-11 09:33 | CT_ITS ---
WS: [id number] CT HEAD TECHNIQUE: Noncontrast CT of the head obtained from the skullbase to the vertex. CLINICAL INFORMATION: fall/elevated BP COMPARISON: July 11, 2022 DLP: 1483.[address] scans at [facility] use at least one of these dose optimization techniques: automated e xposure control; mA and/or kV adjustment per patient size (includes targeted exams where dose is matc hed to clinical indication); or iterative reconstruction. FINDINGS: No evidence of intracranial hemorrhage or mass effect. Ventricular system and basal cisterns are taylor nt. Moderate to advanced small vessel changes with moderate parenchymal volume loss. Small vessel sierra nges in the maria teresa. Intracranial vascular calcification. No extra-axial fluid collections. No evidence of mass or mass effect. Chronic inspissated secretions in the RIGHT maxillary sinus with chronic bony remodeling. Mastoid air cells well aerated. Normal posterior nasopharynx. CT/CT head wo con* [id number] IMPRESSION: 1. No evidence of intracranial hemorrhage or mass effect. 2. Moderate to advanced small vessel changes. Moderate parenchymal volume loss . 3. Intracranial vascular calcification. 4. Chronic inspissated secretions in the RIGHT maxillary sinus. 5. No acute intracranial findings.
[2022-11-11 10:10] VITALS: BP 199/116; PULSE 99; RESP 16; O2SAT 90
[2022-11-11 10:58] VITALS: BP 174/109; PULSE 77; RESP 20; O2SAT 92
[2022-11-11 11:11] VITALS: BP 160/99
--- NOTE | 2022-11-11 11:17 | PC.NURSE ---
Pt has a skin tear on his back, i cleaned the area and put a tegaderm over it per Dr. Rojas
[2022-11-11 11:50] VITALS: BP 160/99; PULSE 77; RESP 20; O2SAT 92
== END 2022-11-11 11:52 | disposition home or self-care (01) ==
PROVIDERS: Emergency Provider Family Medicine
DX: G20 Parkinson's disease (principal); I10 Essential (primary) hypertension; Z79.82 Long term (current) use of aspirin; I25.2 Old myocardial infarction; Z87.891 Personal history of nicotine dependence
CPT/HCPCS: 70450; 71045; 72125; 72170; 80053; 85025; 99285

== ENCOUNTER → 2023-01-25 12:49 | Outpatient (BNVA) | payer MEDICARE, OTHER, SELFPAY | PROVIDERS: Visit Provider Urology | DX: N40.1 Benign prostatic hyperplasia with lower urinary tract symptoms (principal); R82.81 Pyuria; R39.12 Poor urinary stream; N30.80 Other cystitis without hematuria; R33.9 Retention of urine, unspecified | CPT/HCPCS: 51798; 99213 ==

== ENCOUNTER 2023-04-04 20:17 | Inpatient (IN) | payer MEDICARE, OTHER, SELFPAY ==
[2023-04-04] VITALS (20 sets, daily range): BP systolic 101–208; BP diastolic 67–134; PULSE 63–114; RESP 13–19; TEMP 36.1–36.4; O2SAT 87–100; BMI 21.2; BMI 22.8
[2023-04-04] MEDS: EPINEPHrine 0.1 mg/mL SYR 10 mL 1 MG IVP (20:18)
[2023-04-04] MEDS: sodium bicarbonate 8.4% 1 mEq/mL 50mL Syr 50 MEQ IVP (20:21)
--- NOTE | 2023-04-04 20:25 | XRR_ITS ---
PROCEDURE INFORMATION: Exam: XR Chest Exam date and time: 04/04/2023 8:49 PM Age: 77 years old Clinical indication: Injury or trauma; Other: Cpr TECHNIQUE: Imaging protocol: Radiologic exam of the chest. Views: 1 view. COMPARISON: CR XR chest 1V portable [id number] 11/11/2022 8:47 AM FINDINGS: Tubes, catheters and devices: Intubation with tip 4.9 cm above the dina. Gastric tube with tip in the mid stomach. Heart valve prosthesis. Pacemaker pads in place. Lungs: Diffuse mixed ground-glass and interstitial opacities in both lungs, consistent with pulmonary edema. Mild atelectasis in the left lung base. Pleural spaces: Probable trace left pleural effusion. No pneumothorax. Heart/Mediastinum: Cardiomegaly. Bones/joints: Median sternotomy changes. XR/XR chest 1V portable [id number] IMPRESSION: 1. Cardiomegaly with pulmonary edema.
--- NOTE | 2023-04-04 20:25 | ECG_ITS ---
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 Measurements Intervals [place] Rate: 116 P: 0 SD: 0 QRS: 144 QRSD: 175 T: 16 QT: 379 QTc: 528 Interpretive Statements ATRIAL FLUTTER/TACHYCARDIA WITH RAPID VENTRICULAR RESPONSE RIGHT BUNDLE BRANCH BLOCK [120+ ms QRS DURATION, UPRIGHT V1, 40+ ms S IN I/aVL/V4/V5/V6] LEFT POSTERIOR FASCICULAR BLOCK [QRS AXIS > 109, INFERIOR Q] MINIMAL VOLTAGE CRITERIA FOR LVH, CONSIDER NORMAL VARIANT [MEETS CRITERIA IN ONE OF: R(aVL), S(V1), R(V5), R(V5/V6)+S(V1)] No previous ECG available for comparison Electronically Signed On 04-04-2023 23:09:16 CDT by Los Vital M.D. [id number]
[2023-04-04 20:30] LABS: Glucose Point of Care 176 mg/dL (70-110)
--- NOTE | 2023-04-04 20:33 | PC.NURSE ---
@ 2016 PT arrived by EMS. Pt was called in as ROSC obtained, running class 2. @ 2016 pt was checked for pulse, none found, CPR was initiated by staff. @ 2017 1mg epi administered IVP @2019 ROSC achieved @2020 1 amp Bicarb administered.
[2023-04-04 20:40] LABS: Basophils # 0.1 10^3/uL (0.0-0.1); Basophils % 0.6 %; Eosinophils # 0.1 10^3/uL (0.0-0.8); Eosinophils % 0.6 %; Hematocrit 36.4 % (42.0-52.0); Hemoglobin 10.6 g/dL (11.7-16.6); Lymphocytes % 24.9 %; Mean Corpuscular HGB Conc 29.1 g/dL (30.0-36.0); Mean Corpuscular Hemoglobin 30.5 pg (28.0-34.0); Mean Corpuscular Volume 104.9 fl (80-94); Monocytes # 0.6 10^3/uL (0.2-0.9); Monocytes % 7.4 %; Neutrophils # 4.92 10^3/uL (1.8-7.7); Neutrophils % 61.7 %; Nucleated Red Blood Cells % 0.4 %; Platelet Count 140 10^3/cmm (130-400); Red Blood Count 3.47 10^6/uL (4.1-5.3); Red Cell Distribution Width 14.5 % (12.1-15.1)
[2023-04-04 20:44] LABS: Base Excess ABG -12.2 mmol/L (-2.0-2.0); Blood Gas Allen Test Pos; Blood Gas Sample Site Radial, left; Blood Gas Sample Type Arterial; Oxygen Device VENT
[2023-04-04 20:45] LABS: ABG PCO2 43.2 mmHg (35-45); Arterial Blood Gas Hematocrit 35.4 % (42-52); HCO3 ABG 15.8 mmol/L (22-26)
[2023-04-04 20:46] LABS: ABG PH Result 7.17 (7.35-7.45)
--- NOTE | 2023-04-04 20:48 | PC.NURSE ---
Pt arrived to ED via EMS. EMS attained ROSC enroute and placed ET tube but upon arrival pt was found pulseless. CPR was resumed. 1 mg epinephrine IVP was administered via LAC 18 G PIV which placed by EMS. An IO was placed in the L femur. 18 G PIV was placed in R AC. 50 of bicarb was also given at this time. ROSC was then attained. A 16 Fr melo catheter was placed. No urine output at this time. An OG tube was placed and marked.
[2023-04-04 20:51] LABS: INR 1.51 (0.8-1.2)
[2023-04-04 20:53] LABS: Partial Thromboplastin Time 52.6 SECONDS (23.9-36.7)
[2023-04-04 20:57] LABS: Troponin(5th) Baseline 42 ng/L (0-15)
[2023-04-04] MEDS: sodium chloride 0.9% 1,000 ML 999 ML IV ×2 (20:58→22:23)
[2023-04-04 21:06] LABS: Alanine Aminotransferase 11 U/L (0-41); Alkaline Phosphatase 118 U/L (40-130); Blood Urea Nitrogen 21 mg/dL (8-23); Calcium 8.1 mg/dL (8.5-10.5); Carbon Dioxide 18 mmol/L (22-29); Chloride 100 mmol/L (98-107); Creatine Phosphokinase 174 U/L (39-308); Globulin 2.4 g/dL (1.3-4.6); Glucose 150 mg/dL (65-115); NT Pro B Type Natriuretic Pept 7940 pg/mL (0-450); Osmolality Calculated 294 mOsm/kg (285-295); Sodium 139 mmol/L (136-145); Total Bilirubin 0.7 mg/dL (0.15-1.2); Total Protein 5.4 g/dL (6.6-8.7)
[2023-04-04 21:09] LABS: Aspartate Amino Transferase 150 U/L (0-40)
--- NOTE | 2023-04-04 21:13 | W.ED.CPR ---
HPI - CPR General: Chief Complaint: Cardiac Arrest/CPR Stated Complaint: RESP. DISTRESS Time Seen by Provider: 04/04/23 20:24 History of Present Illness: 77-year-old male with a history of Parkinson's disease and evidently mitral valve replacement. He presents with CPR in progress. Evidently EMS had been called because of respiratory distress and chest discomfort to the home. He was found by first responders to be without pulses and CPR was started. EMS arrived 7 minutes later, and found a rhythm of PEA initially. There was a milligram of epinephrine given and ACLS protocol was started. ROSC was achieved after 2 mg of epinephrine. The patient was intubated in the field, and began to move around some. At this point, etomidate and rocuronium were used for sedation and paralytic. The patient had maintained a pulse and blood pressure until just prior to arrival, when pulses were lost again. Chest compressions continued on arrival to the emergency department, where 1 more milligram of epinephrine and 1 amp of bicarbonate were given. ROSC was achieved after the next round of CPR. He was placed on a MD complaint: stopped breathing Onset (ago): minute(s) Timing confirmed by: family member and other Place: home Bystander CPR performed: No AED applied by bystander/appeals representative: Yes Shock advised: No Initial findings in the field: unresponsive, no respirations and no pulse ROSC in the field: Yes Associated injuries: No Associated symptoms: other Known history of: other Treatments prior to arrival: intubation, chest compressions and epinephrine mgs # (2) Review of Systems General: Reports: ROS unobtainable due to medical condition [facility] ED PFSH: Medical History (Updated 04/05/23 @ 00:06 by Chris Bautista DO) Angina pectoris Benign prostatic hyperplasia with lower urinary tract symptoms Gross hematuria Heart murmur Hx of cataract Hx of myocardial infarction Incomplete bladder emptying Neuropathy Parkinson disease Pyuria Surgical History (Updated 04/04/23 @ 23:31 by Silverio Garcia MD) Hx of mitral valve replacement Family History Father , Age 70 Stroke Mother , age 65 CAD (coronary artery disease) Social History Smoking and tobacco status: former smoker Alcohol intake: never Substance/Drug Use: unknown Adopted: No Caregiver/support person: No Lives independently: No Household members: spouse Marital status: Current occupational status: retired Physical Exam Const: NUTRITIONAL APPEARANCE: thin ORIENTATION/CONSCIOUSNESS: Yes Other orientation findings (unresponsive) HENMT: COMMON NORMALS: normocephalic HEAD & SCALP: normocephalic FACE & SINUS: normal facial exam Eye: PUPIL: Yes Dilated pupils Neck/C-Spine: GENERAL: Yes trachea midline Chest: CHEST: Yes Symmetrical chest wall rise Resp: AUSCULTATION: rhonchi Cardio: PERIPHERAL PULSES: other (pulseless) GI: COMMON NORMALS: Soft to palpation INSPECTION: No abdominal distension PALPATION: Yes Soft to palpation Extremity: COMMON NORMALS: no pedal edema Neuro: PABLO COMA SCALE: document GCS findings Pablo coma scale eye opening: None Mcgregor coma scale verbal response: None Pablo coma scale motor response: None Pablo coma scale total score: 3 Procedures Central Line Placement Left IJ: Time Out Performed: No Patient Placed on Monitor/Pulse Ox: Yes MD Prep: mask, gown and gloves Central Line Prep: Chlorhexidine scrub Local Anesthetic: lidocaine 1% Amount of anesthesia used (mL): 3 Ultrasound Used for Placement: Yes Post Procedure: sutured in place, good blood return, all ports aspirated, flushed, capped and sterile dressing applied Post Procedure X-Ray: tip of catheter in good position and no pneumothorax seen Patient Tolerated Procedure: well and no complications Complications: none Course Vital Signs: Vital signs: Vital Signs Temperature 97.6 F 04/04/23 20:21 Pulse Rate 66 04/04/23 23:15 Respiratory Rate 18 04/04/23 23:49 Blood Pressure 151/95 04/04/23 23:15 Pulse Oximetry 99 04/04/23 23:49 Oxygen Delivery Me thod Mechanical Ventil ation 04/04/23 20:21 Fraction of Inspir ed Oxygen 50 04/04/23 23:49 MDM - Cardiac Arrest/CPR Medical Decision Making ROSC achieved after 1 mg of epinephrine and 2 rounds of CPR in the ER coming in from the ambulance bay. Initial EKG showed what looks like a sinus rhythm with a right bundle branch block, and significant ST depression anteriorly. No clear ST elevation. Consulted cardiology, who looked at the EKG. Given PEA as initial rhythm, nonresponsiveness currently, and no STEMI on the EKG, recommends against emergent [employer], to await stabilization and to see if the patient's medical status improves otherwise. Epinephrine drip was started at 1, then 3. Current vitals are heart rate of 70, blood pressure 155/97, saturations 97% on the ventilator. Hemoglobin is 11. White blood cell count is 8. Bicarbonate is 18, lactic acid is 10. pH is 7.17. Initial troponin is 42. Initial BNP is 8000. Creatinine is 1. Chest x-ray reveals some pulmonary edema and cardiomegaly. We have not had to use propofol for sedation as of yet. He is on fentanyl. Central line was placed. Spoke with hospitalist. Recommendations are anticoagulation, CT of the head, CT of the chest abdomen pelvis with angiogram of the chest to rule out PE. Lab Data 04/04/23 20:34 04/04/23 20:34 Radiology Impressions Chest X-Ray 04/04/23 20:25 IMPRESSION: 1. Cardiomegaly with pulmonary edema. Head CT 04/04/23 21:20 IMPRESSION: Stable CT head. No acute intracranial abnormality. Venous Duplex 04/04/23 21:34 IMPRESSION: 1. No evidence for deep vein thrombosis. 2. Partial superficial thrombus in the proximal right greater saphenous vein. Laboratory Results WBC 8.0 10^3/uL (4.0-10.0) 04/04/23 20: RBC 3.47 10^6/uL (4.1-5.3) L 04/04/23 20:34 Hgb 10.6 g/dL (11.7-16.6) L 04/04/23: Hct 36.4 % (42.0-52.0) L 04/04/23 20: MCV 104.9 fl (80-94) H 04/04/23 20: MCH 30.5 pg (28.0-34.0) 04/04/23: MCHC 29.1 g/dL (30.0-36.0) L 04/04/23 20:34 RDW 14.5 % (12.1-15.1) 04/04/23 20:34 Plt Count 140 10^3/cmm (130-400) 04/04/23 20: MPV 10.0 fL (7.4-10.4) 04/04/23 20:34 Neut % (Auto) 61.7 % 04/04/23 20:34 Lymph % (Auto) 24.9 % 04/04/23 20:34 [place] % (Auto) 7.4 % 04/04/23 20:34 Eos % (Auto) 0.6 % 04/04/23 20:34 Baso % (Auto) 0.6 % 04/04/23:34 Neut # (Auto) 4.92 10^3/uL (1.8-7.7) 04/04/23 20:34 Lymph # (Auto) 2.0 10^3/uL (0.8-4.8) 04/04/23 20:34 Beltrami # (Auto) 0.6 10^3/uL (0.2-0.9) 04/04/23:34 Eos # (Auto) 0.1 10^3/uL (0.0-0.8) 04/04/23 20:34 Baso # (Auto) 0.1 10^3/uL (0.0-0.1) 04/04/23:34 Nucleated RBC % (auto) 0.4 % 04/04/23:34 Nucleated RBCs # 0.0 /100WBC 04/04/23 20:34 PT 18.80 SECONDS (12.1-14.9) H 04/04/23 20:34 INR 1.51 (0.8-1.2) H 04/04/23 20:34 APTT 52.6 SECONDS (23.9-36.7) H 04/04/23 20:34 D-Dimer >= 20.00 ug/mIFEU (0-0.59) H 04/04/23 20:34 Specimen Type Arterial 04/04/23 20:33 Sample Site Radial, left 04/04/23 20:33 ABG pH 7.17 (7.35-7.45) L* 04/04/23 20: ABG pCO2 43.2 mmHg (35-45) 04/04/23 20: ABG pO2 311.0 mmHg (80.0-100.0) H 04/04/23 20:33 ABG HCO3 15.8 mmol/L (22-26) L 04/04/23 20: ABG Base Excess -12.2 mmol/L (-2.0-2.0) L 04/04/23 20:33 Mukul Test Pos 04/04/23 20:33 Hematocrit 35.4 % (42-52) L 04/04/23 20:33 O2 Delivery Device Vent 04/04/23 20:33 FiO2 100.0 % 04/04/23 20:33 PEEP 5.0 cmH20 04/04/23 20:33 Fresh Meat Grader ID [email or web address] 04/04/23 20:33 Sodium 139 mmol/L (136-145) 04/04/23 20:34 Potassium 4.0 mmol/L (3.5-5.1) 04/04/23 20:34 Chloride 100 mmol/L (98-107) 04/04/23 20:34 Carbon Dioxide 18 mmol/L (22-29) L 04/04/23 20:34 Anion Gap 25.0 (5-19) H 04/04/23 20:34 BUN 21 mg/dL (8-23) 04/04/23 20:34 Creatinine 1.0 mg/dL (0.7-1.2) 04/04/23 20:34 GFR Calculation Not Reportable 04/04/23 20:34 Glucose 150 mg/dL (65-115) H 04/04/23 20:34 POC Glucose 176 mg/dL (70-110) H 04/04/23 20:28 Calculated Osmolality 294 mOsm/kg (285-295) 04/04/23 20:34 Lactic Acid 10.3 mmol/L (0.5-2.2) H* 04/04/23 20:51 Calcium 8.1 mg/dL (8.5-10.5) L 04/04/23 20:34 Total Bilirubin 0.7 mg/dL (0.15-1.2) 04/04/23 20:34 AST 150 U/L (0-40) H 04/04/23 20:34 ALT 11 U/L (0-41) 04/04/23 20:34 Alkaline Phosphatase 118 U/L (40-130) 04/04/23 20:34 Creatine Kinase 174 U/L (39-308) 04/04/23 20:34 Troponin T Baseline 42 ng/L (0-15) H 04/04/23 20:34 C-Reactive Protein 3.0 mg/L (0.0-4.9) 04/04/23 20:34 NT-Pro-B Natriuret Pep 7940 pg/mL (0-450) H 04/04/23 20:34 Total Protein 5.4 g/dL (6.6-8.7) L 04/04/23 20:34 Albumin 3.0 g/dL (3.5-5.2) L 04/04/23 20:34 Globulin 2.4 g/dL (1.3-4.6) 04/04/23 20:34 TSH 6.70 uIU/mL (0.27-4.20) H 04/04/23 20:34 Critical Care Time Critical Care Time: Critical Care Time: Yes Total Critical Care Time: 40 Attestation: This case had a high probability of a clinically significant, sudden, or life threatening deterioration of this patient's condition which required my full and direct attention, intervention and personal management. Time is independent of any procedures performed. Discharge Plan Discharge Patient Disposition: Admitted As Inpatient Admit Provider: Silverio Garcia Clinical Impression: Cardiac arrest, Shock, Lactic acidosis Condition: Stable Coding Level of Care Code ED Animal Care Attendant for Stacey Lofton
[2023-04-04 21:18] LABS: Lactic Sepsis W/Reflex 10.3 mmol/L (0.5-2.2)
[2023-04-04] MEDS: EPINEPHrine 2.5 MG in sodium chloride 0.9% 250 ML 6 MG IV (21:18)
--- NOTE | 2023-04-04 21:20 | CTR_ITS ---
PROCEDURE INFORMATION: Exam: CTA Chest With Contrast Exam date and time: 04/04/2023 11:31 PM Age: 77 years old Clinical indication: Other: Cpr post code; Prior surgery; Surgery date: 6+ months; Surgery type: Mitral valve; Patient HX: Cpr in progress via EMS. Patient down approximately ten minutes. D dimer greater than 20.0. Lactic acid of 10.3. Gross hematuria. TECHNIQUE: Imaging protocol: Computed tomographic angiography of the chest with contrast. Exam focused on the arteries. 3D rendering (Not supervised by radiologist): MIP and/or 3D reconstructed images were created by the technologist. Radiation optimization: All CT scans at this facility use at least one of these dose optimization techniques: automated exposure control; mA and/or kV adjustment per patient size (includes targeted exams where dose is matched to clinical indication); or iterative reconstruction. Contrast material: OMNI 350; Contrast volume: 100 ml; Contrast route: INTRAVENOUS (IV); REPORTING DATA: Count of CT and Cardiac NM exams in prior 12 months: This patient has received 5 known CTs and 0 known cardiac nuclear medicine studies in the 12 months prior to the current study. COMPARISON: CR (CHEST, ) 04/04/2023 8:49 PM RADIATION DOSE METRICS: Total DLP (mGy-cm): 730.19 FINDINGS: Tubes, catheters and devices: Endotracheal tube and enteric tube seen in place. Left central venous catheter seen in place. Pulmonary arteries: Bilateral lower lobe subsegmental pulmonary arteries are non-opacified suggestive of underlying segmental to subsegmental pulmonary emboli. Presence of heart strain cannot be adequately evaluated given non opacification of the left ventricle, consider correlation with echocardiogram. Main pulmonary artery is prominent which can be a finding of chronic pulmonary hypertension. Aorta: Ascending thoracic aorta is dilated at 3.7 cm. Veins: Reflux of contrast into the inferior vena cava and hepatic veins suggestive of congestive heart failure. Lungs: Patchy bilateral airspace infiltrates. Emphysematous changes. Pleural spaces: Moderate to large bilateral pleural effusions. Heart: Cardiomegaly. Coronary arteries: Coronary artery atherosclerotic calcifications. Lymph nodes: Unremarkable. No enlarged lymph nodes. Bones/joints: Sternotomy wires. Soft tissues: Unremarkable. PROCEDURE INFORMATION: Exam: CT Abdomen And Pelvis With Contrast Exam date and time: 04/04/2023 11:31 PM Age: 77 years old Clinical indication: Other: Cpr post code; Prior surgery; Surgery date: 6+ months; Surgery type: Mitral valve; Patient HX: Cpr in progress via EMS. Patient down approximately ten minutes. D dimer greater than 20.0. Lactic acid of 10.3. Gross hematuria. TECHNIQUE: Imaging protocol: Computed tomography of the abdomen and pelvis with contrast. Radiation optimization: All CT scans at this facility use at least one of these dose optimization techniques: automated exposure control; mA and/or kV adjustment per patient size (includes targeted exams where dose is matched to clinical indication); or iterative reconstruction. Contrast material: OMNI 350; Contrast volume: 100 ml; Contrast route: INTRAVENOUS (IV); REPORTING DATA: Count of CT and Cardiac NM exams in prior 12 months: This patient has received 5 known CTs and 0 known cardiac nuclear medicine studies in the 12 months prior to the current study. COMPARISON: CR XR pelvis 1-2V* [id number] 11/11/2022 8:49 AM RADIATION DOSE METRICS: Total DLP (mGy-cm): 730.19 FINDINGS: Liver: Passive congestion of the liver suspected suggestive of congestive heart failure. Gallbladder and bile ducts: Pericholecystic fluid with possible cholelithiasis, ultrasound could further evaluate this as clinically indicated. Pancreas: Normal. No ductal dilation. Spleen: Normal. No splenomegaly. Adrenal glands: Normal. No mass. Kidneys and ureters: Right kidney parenchymal renal cysts along with a left kidney parapelvic cyst, negative for follow-up advised. Stomach and bowel: Constipation. Appendix: No evidence of appendicitis. Intraperitoneal space: Small amount of perihepatic fluid. Vasculature: Unremarkable. No abdominal aortic aneurysm. Lymph nodes: Unremarkable. No enlarged lymph nodes. Urinary bladder: Mix catheter in the urinary bladder. Reproductive: Unremarkable as visualized. Bones/joints: Unremarkable. No acute fracture. Soft tissues: Mild anasarca suspected. CT/CT angio chest w abd pel w con IMPRESSION: 1. Bilateral lower lobe subsegmental pulmonary arteries are non-opacified suggestive of underlying segmental to subsegmental pulmonary emboli. Presence of heart strain cannot be adequately evaluated given non opacification of the left ventricle, consider correlation with echocardiogram. 2. Patchy bilateral airspace infiltrates. 3. Emphysematous changes. 4. Sternotomy wires. 5. Endotracheal tube and enteric tube seen in place. 6. Cardiomegaly. 7. Coronary artery atherosclerotic calcifications. 8. Ascending thoracic aorta is dilated at 3.7 cm. 9. Main pulmonary artery is prominent which can be a finding of chronic pulmonary hypertension. 10. Moderate to large bilateral pleural effusions. 11. Reflux of contrast into the inferior vena cava and hepatic veins suggestive of congestive heart failure. IMPRESSION: 1. Pericholecystic fluid with possible cholelithiasis, ultrasound could further evaluate this as clinically indicated. 2. Constipation. 3. Mix catheter in the urinary bladder. 4. Right kidney parenchymal renal cysts along with a left kidney parapelvic cyst, negative for follow-up advised. 5. Mild anasarca suspected. 6. Passive congestion of the liver suspected suggestive of congestive heart failure. 7. Small amount of perihepatic fluid. COMMENTS: Consistent with the [employer]'s Incidental Findings Committee white paper (J Am Leidy Radiol 2018): Any incidental renal lesion less than 1 cm or classified as too small to characterize, or any incidental cystic renal lesion characterized as simple-appearing, is likely benign. No follow-up imaging is recommended for these lesions per consensus recommendations based on imaging criteria.
--- NOTE | 2023-04-04 21:20 | CTR_ITS ---
PROCEDURE INFORMATION: Exam: CT Head Without Contrast Exam date and time: 04/04/2023 11:27 PM Age: 77 years old Clinical indication: Other: Cpr post code; Patient HX: Cpr in progress via EMS. Patient down approximately ten minutes. History of parkinson's. TECHNIQUE: Imaging protocol: Computed tomography of the head without contrast. Radiation optimization: All CT scans at this facility use at least one of these dose optimization techniques: automated exposure control; mA and/or kV adjustment per patient size (includes targeted exams where dose is matched to clinical indication); or iterative reconstruction. REPORTING DATA: Count of CT and Cardiac NM exams in prior 12 months: This patient has received 5 known CTs and 0 known cardiac nuclear medicine studies in the 12 months prior to the current study. COMPARISON: CT head wo con* [id number] 11/11/2022 9:57 AM RADIATION DOSE METRICS: Total DLP (mGy-cm): 1260.28 FINDINGS: Brain: Moderate diffuse cortical volume loss. Severe hypodensities in supratentorial periventricular and subcortical white matter, consistent with microangiopathy. No intracranial hemorrhage. Cerebral ventricles: No ventriculomegaly. Paranasal sinuses: Chronic opacification of the right maxillary sinus. The other sinuses are clear. Hyperostosis of the right maxillary sinus. Mastoid air cells: Visualized mastoid air cells are well aerated. Orbital cavities: Cataract surgery. Bones/joints: No fracture identified. Soft tissues: Unremarkable. Vasculature: No hyperdense artery. CT/CT head wo con* [id number] IMPRESSION: Stable CT head. No acute intracranial abnormality.
--- NOTE | 2023-04-04 21:30 | USCV_ITS ---
Wayne Doshi Age: 77 Gender: M : 1945 Exam Date: 04/04/2023 21:57 Ordering Phys: Silverio Garcia MD Technologist: BEBE [place] [facility] [place]: post code BP: / HR: 67 Rhythm: Sinus Technical Quality: Adequate MEASUREMENTS (Male / Female) Normal Values 2D ECHO LV Diastolic Diameter PLAX 4.4 cm 4.2 - 5.9 / 3.9 - 5.3 cm LV Systolic Diameter PLAX 3.6 cm IVS Diastolic Thickness 1.8 cm 0.6 - 1.0 / 0.6 - 0.9 cm IVS Systolic Thickness 2.1 cm LVPW Diastolic Thickness 0.9 cm 0.6 - 1.0 / 0.6 - 0.9 cm LVPW Systolic Thickness 1.1 cm LVOT Diameter 2.1 cm LV Ejection Fraction 2D Teich 36.6 % LV Ejection Fraction MOD 2C 44.2 % LV Ejection Fraction 2C AL 43.8 % LA Diameter 4.3 cm IVC Diameter 2.7 cm M-MODE Aortic Annulus Diameter 3.0 cm LA Ao Ratio MM 1.7 DOPPLER AV Peak Velocity 119.0 cm/s LVOT Peak Velocity 73.0 cm/s AV Area Cont Eq vti 1.8 cm squared AV Area Cont Eq pk 2.2 cm squared MV Area PHT 1.1 cm squared Mitral E to A Ratio 1.1 MV E' Velocity 108.0 cm/s Mitral E to MV E' Ratio 57.5 Mitral E to LV E' Lateral Ratio 70.9 Mitral E to LV E' Septal Ratio 49.5 TR Peak Velocity 404.4 cm/s TR Peak Gradient 65.4 mmHg Right Atrial Pressure 9.0 mmHg Pulmonary Artery Systolic Pressu 74.4 mmHg PV Peak Velocity 197.0 cm/s FINDINGS Left Ventricle Left ventricle is normal in size. LV systolic function is mildly reduced with EF of 40 to 45%. Mild global hypokinesis is seen. Moderate to severe hypokinesis of the inferolateral wall. Right Ventricle RV is dilated and has severe hypokinesis. Right Atrium Normal in size Left Atrium Dilated Mitral Valve Possible mitral valve annuloplasty ring. Mean gradient across the mitral valve is mildly elevated and is 5.6mmHg. Aortic Valve Thickened aortic valve. No significant stenosis. Tricuspid Valve Moderate to severe tricuspid regurgitation. RVSP is > 70mmHg. This is consistent with severe pulmonary hypertension Pulmonic Valve Moderate pulmonic regurgitation Pericardium Grossly normal Aorta Normal in size IVC Dilated CONCLUSIONS LV systolic function is mildly reduced with EF of 40 to 45%. Mild global hypokinesis is seen. Moderate hypokinesis of inferolateral wall is seen RV is dilated and is hypokinetic. Left atrium dilation Possible mitral valve annuloplasty ring is seen. Mean gradient is mildly elevated. Moderate to severe tricuspid regurgitation Severe pulmonary hypertension Moderate pulmonic regurgitation IVC is dilated consistent with RA pressure of more than 10 mmHg. No comparison study is available. [place] MD (Electronically Signed) Final Date: 05 April 2023 10:25 S
--- NOTE | 2023-04-04 21:31 | P.HP_ITS ---
Providers/Chief Complaint Primary Care Provider: Shadi Murray MD Chief Complaint: RESP. DISTRESS History of Present Illness History received to patient's at bedside. No documentation available in chart. Wayne Doshi is a 77 year old male with past medical history of CAD not amenable to revascularization as per the , EF of around 40%, bioprosthetic mitral valve repair, Parkinson's, BPH. As per the patient was getting up from his recliner to go to the bathroom and while walking with his walker he felt dizzy and collapsed after which the family started CPR and EMS was called. EMS arrived around 10 minutes after ca lling and CPR was initiated. Initial rhythm as per EMS was PEA. ROSC was achieved after around 2 cycles of epinephrine and around 7 minutes. Just after reaching the ER patient again had PEA arrest and this time ROSC was achieved after 2 cycles of ACLS protocol code again. As per the patient may he has been having some dental work done at [place] last week for which he has been on and off on antibiotics and has been recovering well from it. Patient did scrape his ankle at the walker yesterday and family was finding it difficult to control the bleeding hence he was seen at the urgent care today morning and sutures were applied. On examination patient is on mechanical ventilation, sedated with propofol on epinephrine drip running at 1. Mean artery pressure maintained over 65 with hea rt rate running at 60 beats. Blood work as below. I have requested for a central line placement, starting of Levophed, fentanyl drip, heparin drip till PE is ruled out, bicarb drip given severe metabolic acidosis on ABG. I requested for CTA PE, CT abdomen pelvis with contrast and CT head without contrast. Stat echocardiogram. Review of Systems 2 General: Reports: ROS unobtainable due to endotracheal tube Medications/Allergies Home Medications Medication Instructions Recorded Confirmed Last Taken Type acetaminophen 650 mg 650 mg PO Q8H PRN Pain 07/25/20 04/04/23 01/03/22 History tablet,extended release (Tylenol 8 Hour) aspirin 81 mg tablet,delayed 81 mg PO QAM 07/25/20 04/04/23 11/11/22 History release (Adult Low Dose Aspirin) carbidopa ER 48.75 mg-levodopa 195 2 cap PO QID 07/25/20 04/04/23 11/11/22 History mg capsule,extended release (Rytary) carvedilol 12.5 mg tablet 6.25 mg PO BID 07/25/20 04/04/23 11/11/22 History ropinirole 1 mg tablet 2 mg PO TID@07,10,14 07/25/20 04/04/23 11/11/22 History carbidopa ER 23.75 mg-levodopa 95 1 cap PO QID PRN parkinsons 12/02/20 04/04/23 01/03/22 History mg capsule,extended release (Rytary) multivitamin 1 tab PO QAM 12/02/20 04/04/23 11/11/22 History ascorbate calcium (vitamin C) 500 1 g PO BID 01/23/22 04/04/23 11/11/22 History mg tablet alpha lipoic acid 200 mg capsule 200 mg PO DAILY 11/11/22 04/04/23 11/11/22 History amlodipine 2.5 mg tablet 2.5 mg PO DAILY #30 tabs 11/11/22 04/04/23 Unknown Rx duloxetine 60 mg capsule,delayed 60 mg PO DAILY 11/11/22 04/04/23 11/11/22 History release ferrous sulfate 324 mg (65 mg 324 mg PO EVERY OTHER DAY 11/11/22 04/04/23 11/11/22 History iron) tablet,delayed release levodopa 42 mg capsule with 42 mg inhalation Q4H PRN Parkinsons 11/11/22 04/04/23 Unknown History inhalation device (Inbrija) midodrine 5 mg tablet 2.5 mg PO BID #15 tabs 11/11/22 04/04/23 11/11/22 Rx finasteride 5 mg tablet See Rx Instructions .Route 01/25/23 04/04/23 Unknown Rx .COMPLEX #90 tabs methenamine hippurate 1 gram tablet See Rx Instructions .Route 01/25/23 04/04/23 Unknown Rx .COMPLEX #180 tabs Allergies Allergy/AdvReac Type Severity Reaction Status Date / Time atorvastatin [From Lipitor] Allergy Unknown Unknown Verified 04/04/23 15:50 cerivastatin [From Baycol] Allergy Unknown Unknown Verified 04/04/23 15:50 fluvastatin [From Lescol] Allergy Unknown Unknown Verified 04/04/23 15:50 niacin Allergy Unknown Unknown Verified 04/04/23 15:50 [From Niaspan Extended-Release] pravastatin [From Pravachol] Allergy Unknown Unknown Verified 04/04/23 15:50 simvastatin [From Zocor] Allergy Unknown Unknown Verified 04/04/23 15:50 pregabalin [From Lyrica] Allergy ADR-Faintin Verified 04/04/23 15:50 g Cvqmkol-UUS-TdK Reductase AdvReac ADR-Muscle Verified 04/04/23 15:50 Inhibitor Pain [Puxgudw-Eoa-Jas Reductase Inhibitor] PFSH Acute PFSH: Medical History (Updated 04/04/23 @ 23:41 by Silverio Garcia MD) Angina pectoris Benign prostatic hyperplasia with lower urinary tract symptoms Gross hematuria Heart murmur Hx of cataract Hx of myocardial infarction Incomplete bladder emptying Neuropathy Parkinson disease Pyuria Surgical History (Updated 04/04/23 @ 23:31 by Silverio Garcia MD) Hx of mitral valve replacement Family History Father , Age 70 Stroke Mother , age 65 CAD (coronary artery disease) Social History Smoking and tobacco status: former smoker Alcohol intake: never Substance/Drug Use: unknown Adopted: No Caregiver/support person: No Lives independently: No Household members: spouse Marital status: Current occupational status: retired Vitals/I&O/Wt Last Vital Signs Temp 97.6 F 04/04/23 20:21 Pulse 67 04/04/23 21:22 Resp 16 04/04/23 21:22 BP 101/67 04/04/23 21:22 Pulse Ox 100 04/04/23 21:22 O2 Del Method Mechanical Ventilation 04/04/23 20:21 FiO2 70 04/04/23 20:50 Weight last 48 hrs Weight 65.317 kg Physical Exam Narrative: General: Intubated, sedated, chronically sick appearing, cachectic, pallor present HEENT: PERRLA, pupils bilaterally equal and reactive Chest: Bronchial breath sounds all over lung steward with occasional rhonchi, good local air entry all over lung steward CVS: S1-S2 regular, soft pansystolic murmur present at the apex 2/6 ,no tachycardia, no gallops, no rubs Abdomen: Soft, nontender, no organomegaly, bowel sounds present, morbidly obese Neuro: Intubated, sedated Data 04/04/23 20:34 04/04/23 20:34 Other Labs: Radiology Impressions Chest X-Ray 04/04/23 20:25 IMPRESSION: 1. Cardiomegaly with pulmonary edema. Venous Duplex 04/04/23 21:34 IMPRESSION: 1. No evidence for deep vein thrombosis. 2. Partial superficial thrombus in the proximal right greater saphenous vein. Laboratory Results WBC 8.0 10^3/uL (4.0-10.0) 04/04/23 20:34 RBC 3.47 10^6/uL (4.1-5.3) L 04/04/23 20:34 Hgb 10.6 g/dL (11.7-16.6) L 04/04/23 20:34 Hct 36.4 % (42.0-52.0) L 04/04/23 20:34 MCV 104.9 fl (80-94) H 04/04/23 20:34 MCH 30.5 pg (28.0-34.0) 04/04/23 20: MCHC 29.1 g/dL (30.0-36.0) L 04/04/23 20:34 RDW 14.5 % (12.1-15.1) 04/04/23 20:34 Plt Count 140 10^3/cmm (130-400) 04/04/23 20:34 MPV 10.0 fL (7.4-10.4) 04/04/23 20:34 Neut % (Auto) 61.7 % 04/04/23 20:34 Lymph % (Auto) 24.9 % 04/04/23 20:34 [place] % (Auto) 7.4 % 04/04/23 20:34 Eos % (Auto) 0.6 % 04/04/23 20:34 Baso % (Auto) 0.6 % 04/04/23:34 Neut # (Auto) 4.92 10^3/uL (1.8-7.7) 04/04/23 20:34 Lymph # (Auto) 2.0 10^3/uL (0.8-4.8) 04/04/23 20:34 [place] # (Auto) 0.6 10^3/uL (0.2-0.9) 04/04/23 20:34 Eos # (Auto) 0.1 10^3/uL (0.0-0.8) 04/04/23 20:34 Baso # (Auto) 0.1 10^3/uL (0.0-0.1) 04/04/23 20:34 Nucleated RBC % (auto) 0.4 % 04/04/23 20:34 Nucleated RBCs # 0.0 /100WBC 04/04/23 20:34 PT 18.80 SECONDS (12.1-14.9) H 04/04/23 20:34 INR 1.51 (0.8-1.2) H 04/04/23 20:34 APTT 52.6 SECONDS (23.9-36.7) H 04/04/23 20:34 D-Dimer >= 20.00 ug/mIFEU (0-0.59) H 04/04/23 20:34 Specimen Type Arterial 04/04/23 20:33 Sample Site Radial, left 04/04/23 20:33 ABG pH 7.17 (7.35-7.45) L* 04/04/23 20:33 ABG pCO2 43.2 mmHg (35-45) 04/04/23 20:33 ABG pO2 311.0 mmHg (80.0-100.0) H 04/04/23 20:33 ABG HCO3 15.8 mmol/L (22-26) L 04/04/23 20:33 ABG Base Excess -12.2 mmol/L (-2.0-2.0) L 04/04/23 20:33 Mukul Test Pos 04/04/23 20:33 Hematocrit 35.4 % (42-52) L 04/04/23 20:33 O2 Delivery Device Vent 04/04/23 20:33 FiO2 100.0 % 04/04/23 20:33 PEEP 5.0 cmH20 04/04/23 20:33 Fitness Technician ID [email or web address] 04/04/23 20:33 Sodium 139 mmol/L (136-145) 04/04/23 20:34 Potassium 4.0 mmol/L (3.5-5.1) 04/04/23 20:34 Chloride 100 mmol/L (98-107) 04/04/23 20:34 Carbon Dioxide 18 mmol/L (22-29) L 04/04/23 20:34 Anion Gap 25.0 (5-19) H 04/04/23 20:34 BUN 21 mg/dL (8-23) 04/04/23 20:34 Creatinine 1.0 mg/dL (0.7-1.2) 04/04/23 20:34 GFR Calculation Not Reportable 04/04/23 20:34 Glucose 150 mg/dL (65-115) H 04/04/23 20:34 POC Glucose 176 mg/dL (70-110) H 04/04/23 20:28 Calculated Osmolality 294 mOsm/kg (285-295) 04/04/23 20:34 Lactic Acid 10.3 mmol/L (0.5-2.2) H* 04/04/23 20:51 Calcium 8.1 mg/dL (8.5-10.5) L 04/04/23 20:34 Total Bilirubin 0.7 mg/dL (0.15-1.2) 04/04/23 20:34 AST 150 U/L (0-40) H 04/04/23 20:34 ALT 11 U/L (0-41) 04/04/23 20:34 Alkaline Phosphatase 118 U/L (40-130) 04/04/23 20:34 Creatine Kinase 174 U/L (39-308) 04/04/23 20:34 Troponin T Baseline 42 ng/L (0-15) H 04/04/23 20:34 C-Reactive Protein 3.0 mg/L (0.0-4.9) 04/04/23 20:34 NT-Pro-B Natriuret Pep 7940 pg/mL (0-450) H 04/04/23 20:34 Total Protein 5.4 g/dL (6.6-8.7) L 04/04/23 20:34 Albumin 3.0 g/dL (3.5-5.2) L 04/04/23 20:34 Globulin 2.4 g/dL (1.3-4.6) 04/04/23 20:34 TSH 6.70 uIU/mL (0.27-4.20) H 04/04/23 20:34 Urine Color Yellow (Yellow) 04/04/23 22:05 Urine Appearance Cloudy (CLEAR) A 04/04/23 22:05 Urine pH 5 (5-7) 04/04/23 22:05 Ur Specific [place] 1.020 (1.005-1.030) 04/04/23 22:05 Urine Protein 2+ (Negative) H 04/04/23 22:05 Urine Glucose (UA) Norm (Normal) 04/04/23 22:05 Urine Ketones 1+ (Negative) H 04/04/23 22:05 Urine Blood 3+ (Negative) H 04/04/23 22:05 Urine Nitrate Negative (Negative) 04/04/23 22:05 Urine Bilirubin Neg (Negative) 04/04/23 22:05 Urine Urobilinogen Norm mg/dL (Negative) 04/04/23 22:05 Ur Leukocyte Esterase 2+ (Negative) H 04/04/23 22:05 Urine RBC >100 /hpf (0-2) H 04/04/23 22:05 Urine WBC >100 /hpf (0-5) H 04/04/23 22:05 Ur Squamous Epith Cells 5-10 /hpf (0-5) H 04/04/23 22:05 Calcium Oxalate Crystal 15-25 /hpf H 04/04/23 22:05 Amorphous Sediment Not Reportable 04/04/23 22:05 Urine Bacteria 3+ /hpf (NONE) H 04/04/23 22:05 Urine Opiates Screen Negative ng/mL (Negative) 04/04/23 22:05 Ur Barbiturates Screen Negative ng/mL (Negative) 04/04/23 22:05 Ur Phencyclidine Scrn Negative ng/mL (Negative) 04/04/23 22:05 Ur Amphetamines Screen Negative ng/mL (Negative) 04/04/23 22:05 U Benzodiazepines Scrn Negative ng/mL (Negative) 04/04/23 22:05 Urine Cocaine Screen Negative ng/mL (Negative) 04/04/23 22:05 U Marijuana (THC) Screen Negative ng/mL (Negative) 04/04/23 22:05 A&P Assessment and plan (1) Cardiac arrest: (2) Shock: (3) Metabolic acidosis: (4) Lactic acidosis: (5) CAD (coronary artery disease): (6) Hx of mitral valve replacement: (7) LV dysfunction: (8) Acute superficial venous thrombosis of left lower extremity: Plan 77-year-old gentleman with past medical history of CAD not amenable to revascularization as per family, mitral bioprosthetic valve replacement presented to the ER after PEA cardiac arrest x2, ROSC achieved 2 times after overall CPR for around 30 minutes and blood work showing metabolic acidosis with lactic acidosis. PEA cardiac arrest: ROSC achieved: Shock: Most likely cardiogenic shock. Keep mean artery pressure 65. Add Levophed. Wean off epinephrine first as per the goal mean arterial pressure. Restart home midodrine but at increased dose of 5 mg 3 times daily. Oxygen supplementation keeping saturation over 92%. Repeat ABG in 1 hour and change ventilator setting accordingly. Sedation with propofol and fentanyl. Mix catheterization, OG tube placement. Check blood culture, urine culture, urinalysis, urine Legionella, bacterial antigen, respiratory viral panel, MRSA swab, D-dimer, stat echocardiogram, lower limb Dopplers. Stat CTA PE protocol, CT abdomen pelvis with contrast, CT head without contrast. Empirically start patient on heparin drip given concerns for possible PE. Empirically start patient on broad-spectrum antibiotics with IV vancomycin and Zosyn. Repeat CBC and CMP in 4 hours. Repeat lactate in 4 hours. Start patient on bicarb drip with 150 mEq at 100 cc/h. 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 CODE STATUS: Patient's will be the DPOA. We discussed in detail that unfortunately patient is at high risk of brain damage of brain given prolonged CPR overall on 2 times. Also discussed about the grave prognosis. We discussed unfortunately at this point we do not know the etiology as work-up is pending. Discussed with a high chance that patient might code again. Family would want to continue full code for now. If patient calls more than 1 time overnight they would like to discuss further regarding further goals of care before making any decisions. Protonix for PUD prophylaxis. Admit to ICU. Attestations Medical Necessity Statement*: Admission for more than 2 midnights for management of postcardiac arrest, ROSC achieved care, cardiogenic shock, metabolic acidosis Coding Level of Care Code Critical Care >/= 30 minutes Critical care time (in minutes): 90 The high probability of a clinically significant, sudden or life threatening deterioration, as referenced in this documentation, required my full and direct attention, intervention and personal management. The critical care time shown is in addition to time spent performing any reported separately billable procedures and includes the following: [x] Data and vital sign review and interpretation [x ] Patient assessment, examination and intervention [x] Medication orders and management [x] Patient/Family updates as able [x] Care Coordination and Documentation. Other Coding Information This patient has a high probability of clinically significant, sudden or life threatening deterioration of the patient's (neurological/pulmonary/cardiac/renal/ID/endocrine) systems required my full, direct attention, the highest level of physician preparedness for urgent intervention and personal management. I managed/supervised life or organ supporting interventions that required frequent physician assessment. I devoted my full attention in the ICU to the direct care of this patient for the period of time indicated above. Time I spent with family or surrogate(s) is included only if the patient was incapable of providing necessary information or participating in decision making. This time includes the following services provided: Telemetry review Mechanical Ventilation Hemodynamic interpretation, assessment and management Review and interpretation of CXR Review and interpretation of lab values Review and interpretation of microbiologic data and culture results Review of medications and administration Review and interpretation of Nutrition requirements and management Discussion of management with other consultants and services Clinical update to family members Diagnoses Cardiac arrest I46.9 Shock R57.9 Metabolic acidosis E87.20 Lactic acidosis E87.20 CAD (coronary artery disease) I25.10 Hx of mitral valve replacement Z95.2 LV dysfunction I51.9 Acute superficial venous thrombosis of left lower extremity I82.812
--- NOTE | 2023-04-04 21:34 | USR_ITS ---
PROCEDURE INFORMATION: Exam: US Duplex Lower Extremity Veins, Bilateral Exam date and time: 04/04/2023 10:23 PM Age: 77 years old Clinical indication: Edema, localized; Lower extremity, bilateral; Additional info: R/O dvt TECHNIQUE: Imaging protocol: Real-time duplex ultrasound of the bilateral extremities with 2-D lynn scale, color Doppler flow and spectral waveform analysis including responses to compression and other maneuvers (when performed) with image documentation. Complete exam focused on the lower extremity veins. COMPARISON: No relevant prior studies available. FINDINGS: Right deep veins: Unremarkable. The common femoral, femoral, proximal profunda femoral and popliteal veins are patent without thrombus. Normal Doppler waveforms. Normal compressibility and/or augmentation response. Right superficial veins: Partial thrombus in the proximal right greater saphenous vein. Left deep veins: Unremarkable. The common femoral, femoral, proximal profunda femoral and popliteal veins are patent without thrombus. Normal Doppler waveforms. Normal compressibility and/or augmentation response. Left superficial veins: Saphenofemoral junction is patent without thrombus. Soft tissues: Unremarkable. US/[id number] IMPRESSION: 1. No evidence for deep vein thrombosis. 2. Partial superficial thrombus in the proximal right greater saphenous vein.
[2023-04-04 22:05] LABS: D Dimer >= 20.00 ug/mIFEU (0-0.59)
--- NOTE | 2023-04-04 22:11 | PC.PHAR ---
Pharmacokinetic dosing service Date: 04/04/23 Time: 2211 Objective: Patient: Wayne Doshi Floor: ED-11 Age: 77 yo Serum creatinine: 1.0 mg/dL Height: 69.0 Inches Weight (kg): 65.317 Diagnosis: Relevant medical/social history: Cultures and sensitivities: Other labs: Assessment: IBW (kg): 70.70 Dosing wt(kg): 65.317 Estimated Creatinine clearance (ml/min): 55.3 CRCL method: Cockcroft and Gault using ibw(default). Drug selected: Vancomycin Loading dose (mg): 0 Vd (liters): 58.8 (factor used: 0.9 L/kg) Kevin (hr-1): 0.050 Half life (hrs): 13.86 Recommended dose: 1250 mg Interval: 18 hrs Infusion time (hrs): 1.5 Predicted peak (mcg/mL): 34.5 Predicted trough (mcg/mL): 15.12 Total body weight is being used for vancomycin dosing. Renal function is stable [ ] /unstable [ ] Recommendations: Give Vancomycin 1250 mg q 18 hrs with an expected Cpeak of 34.5 mcg/ml and an expected Ctrough of 15.12 mcg/ml Renal dosing of other antibiotics (review renal dosing of other medications and list guidelines here): Thank you for the consult, will continue to follow. Signature: [facility]
--- NOTE | 2023-04-04 22:12 | PC.NURSE ---
placed central line. RN in the room monitoring pt and assisting. Pt stable at this time.
--- NOTE | 2023-04-04 22:25 | ECG_ITS ---
[facility] Test Date: 2023-04-04 Pat Name: Wayne Doshi Department: Room: ICU07 Gender: Male Call Center Associate: : 1945 Requested By: Chris Corado Order Number: [id number] Caden MD: Los Vital M.D. Measurements Intervals [place] Rate: 66 P: 94 MA: 194 QRS: 143 QRSD: 179 T: -33 QT: 516 QTc: 542 Interpretive Statements SINUS RHYTHM RIGHT AXIS DEVIATION [QRS AXIS > 100] RIGHT BUNDLE BRANCH BLOCK [120+ ms QRS DURATION, UPRIGHT V1, 40+ ms S IN I/aVL/V4/V5/V6] Compared to ECG 04/04/2023 20:26:51 Right-axis deviation now present Atrial flutter no longer present Left posterior fascicular block no longer present Electronically Signed On 04-05-2023 16:46:34 CDT by Los Vital M.D. [id number]
[2023-04-04 22:27] LABS: Add Urine Microscopic? YES; Bilirubin Urine Neg (Negative); Blood Urine 3+ (Negative); Glucose Urine UA Norm (Normal); Ketones Urine 1+ (Negative); Leukocyte Esterase Urine 2+ (Negative); Nitrate Urine Negative (Negative); Protein Urine 2+ (Negative); Urine Appearance Cloudy (CLEAR); Urine Color Yellow (Yellow); Urobilinogen Urine Norm (Negative); pH Urine 5 (5-7)
[2023-04-04] MEDS: sodium bicarbonate 150 MEQ in dextrose 5% 1,000 ML 100 MEQ IV (22:27)
[2023-04-04 22:29] LABS: RBC Urine >100 /hpf (0-2); WBC Urine >100 /hpf (0-5)
[2023-04-04 22:30] LABS: Amphetamines Screen Urine Negative (Negative); Barbiturates Screen Urine Negative (Negative); Benzodiazepines Screen Urine Negative (Negative); Calcium Oxalate Crystals Urine 15-25 /hpf; Cocaine Screen Urine Negative (Negative); Opiate Screen Urine Negative (Negative); PCP Screen Urine Negative (Negative); THC Screen Urine Negative (Negative)
[2023-04-04 22:31] LABS: Add Urine Culture? Yes; Bacteria Urine 3+ /hpf
[2023-04-04 22:43] LABS: Reflex Lactate Order REFLEX LACTIC ORDERD
[2023-04-04] MEDS: heparin 5,000 unit/mL INJ 1 mL IV (22:44)
[2023-04-04] MEDS: heparin drip 25,000 UNIT/500 ML PREMIX 18 UNIT IV (22:49)
[2023-04-04] MEDS: vancomycin 1,250 MG/250 ML PIGGYBACK 250 MG IV (22:58)
[2023-04-04 23:44] LABS: Troponin 5 2HR 116.9 ng/L (0-15)
[2023-04-04] MEDS: iohexol 350 mg/mL 500 mL Btl (per mL) IV (23:45)
[2023-04-04 23:47] LABS: Troponin 5 2HR Delta 74.9 ABS# (0-10)
[2023-04-05] VITALS (83 sets, daily range): BP systolic 95–172; BP diastolic 58–100; PULSE 60–91; RESP 18–27; TEMP 36.1–38.7; O2SAT 96–100
[2023-04-05 00:28] LABS: Lactic Acid level (Lactate) 3.2 mmol/L (0.5-2.2)
[2023-04-05] MEDS: propofol 1,000 MG/100 ML INJ 3.92 MG IV (00:54)
[2023-04-05 02:24] LABS: Procalcitonin 0.02 ng/mL (0-0.5); Total Iron Binding Capacity 235 mcg/dl; Unsaturated Iron Binding 179 ug/dL (112-347); Vitamin B12 1198 pg/mL (232-1245)
[2023-04-05 02:25] LABS: Iron 56 ug/dL (59-158); Percent Saturation 23.8 % (20-50)
[2023-04-05] MEDS: ipratropium-albuterol 3 mL Neb INHALATION ×4 (02:53→19:45)
--- NOTE | 2023-04-05 02:59 | ECG_ITS ---
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 Measurements Intervals [place] Rate: 63 P: -47 [place]: 155 QRS: 141 QRSD: 166 T: -26 QT: 496 QTc: 511 Interpretive Statements SINUS RHYTHM RIGHT BUNDLE BRANCH BLOCK [120+ ms QRS DURATION, UPRIGHT V1, 40+ ms S IN I/aVL/V4/V5/V6] LEFT POSTERIOR FASCICULAR BLOCK [QRS AXIS > 109, INFERIOR Q] Compared to ECG 04/04/2023 23:15:59 Left posterior fascicular block now present Right-axis deviation no longer present Electronically Signed On 04-05-2023 16:46:23 CDT by Los Vital M.D. [id number]
[2023-04-05 03:18] LABS: ABG PCO2 41.2 mmHg (35-45); ABG PH Result 7.42 (7.35-7.45); Arterial Blood Gas Hematocrit 31.7 % (42-52); Base Excess ABG 1.8 mmol/L (-2.0-2.0); Blood Gas Allen Test Pos; Blood Gas Sample Site Radial, left; Blood Gas Sample Type Arterial; HCO3 ABG 26.5 mmol/L (22-26); Oxygen Device VENT; PO2 ABG 72.3 mmHg (80.0-100.0)
[2023-04-05 03:23] LABS: Estmated Average Glucose 97
[2023-04-05 03:27] LABS: Partial Thromboplastin Time 138.5 SECONDS (23.9-36.7)
[2023-04-05 03:57] LABS: Chol HDL Ratio 3.21 mg/dL (1.0-5.00); Cholesterol 90 mg/dL (0-200); HDL Cholesterol 28 mg/dL (60-100); LDL Cholesterol Calculated 55 mg/dL (50-129); Triglycerides 35 mg/dL (0-150); VLDL Cholestrol Calculation 7 mg/dL (0-30)
[2023-04-05 04:04] LABS: Troponin 5 6HR 210.4 ng/L (0-15); Troponin 5 6HR Delta 168.4 ng/L (0-12)
[2023-04-05] MEDS: piperacillin-tazobactam 3.375 GM in sodium chloride 0.9% (plus) 50 ML IV ×3 (04:22→20:11)
[2023-04-05 04:50] LABS: Adenovirus Not Detected (NOT DETECT); Chlamydia Pneumoniae Not Detected (NOT DETECT); Coronavirus 229E,HKU1,NL63,OC4 Not Detected (NOT DETECT); Human Metapneumovirus Not Detected (NOT DETECT); Human Rhinovirus/Enterovirus Not Detected (NOT DETECT); Influenza A Not Detected (NOT DETECT); Influenza A H1 Not Detected (NOT DETECT); Influenza A H1-2009 Not Detected (NOT DETECT); Influenza A H3 Not Detected (NOT DETECT); Influenza B Not Detected (NOT DETECT); Mycoplasma Pneumoniae Not Detected (NOT DETECT); Parainfluenza Virus Type 1 Not Detected (NOT DETECT); Parainfluenza Virus Type 2 Not Detected (NOT DETECT); Parainfluenza Virus Type 3 Not Detected (NOT DETECT); Parainfluenza Virus Type 4 Not Detected (NOT DETECT); Respiratory Syncytial Virus A Not Detected (NOT DETECT); Respiratory Syncytial Virus B Not Detected (NOT DETECT); SARS-COV-2 Not Detected (NOT DETECT)
[2023-04-05 04:56] LABS: Alanine Aminotransferase 27 U/L (0-41); Albumin Level 2.9 g/dL (3.5-5.2); Alkaline Phosphatase 108 U/L (40-130); Anion Gap 12.5 (5-19); Aspartate Amino Transferase 114 U/L (0-40); Blood Urea Nitrogen 23 mg/dL (8-23); Calcium 7.8 mg/dL (8.5-10.5); Carbon Dioxide 26 mmol/L (22-29); Chloride 101 mmol/L (98-107); Folate Level > 20.0 ng/mL (4.5-32.2); Globulin 2.5 g/dL (1.3-4.6); Glucose 187 mg/dL (65-115); Osmolality Calculated 291 mOsm/kg (285-295); Potassium 3.5 mmol/L (3.5-5.1); Sodium 136 mmol/L (136-145); Total Bilirubin 0.7 mg/dL (0.15-1.2); Total Protein 5.4 g/dL (6.6-8.7)
[2023-04-05] MEDS: budesonide 0.5 mg/2 mL Neb INHALATION ×2 (08:04→19:45)
[2023-04-05] MEDS: docusate sodium 100 mg Capsule PO ×2 (08:42→18:03)
[2023-04-05] MEDS: midodrine 5 mg TABLET 2.5 MG PO ×2 (08:42→18:03)
[2023-04-05] MEDS: pantoprazole 40 mg SDV IVP (08:43)
[2023-04-05 09:45] LABS: Basophils % 0.6 %; Hematocrit 30.9 % (42.0-52.0); Hemoglobin 9.7 g/dL (11.7-16.6); Lymphocytes # 0.7 10^3/uL (0.8-4.8); Lymphocytes % 9.4 %; Mean Corpuscular HGB Conc 31.4 g/dL (30.0-36.0); Mean Corpuscular Volume 98.7 fl (80-94); Mean Platelet Volume 9.9 fL (7.4-10.4); Monocytes # 0.5 10^3/uL (0.2-0.9); Monocytes % 7.4 %; Neutrophils % 82.2 %; Nucleated Red Blood Cells % 0 %; Platelet Count 156 10^3/cmm (130-400); Red Blood Count 3.13 10^6/uL (4.1-5.3); Red Cell Distribution Width 14.9 % (12.1-15.1); White Blood Count 7.1 10^3/uL (4.0-10.0)
[2023-04-05 10:07] LABS: Partial Thromboplastin Time 66.8 SECONDS (23.9-36.7)
--- NOTE | 2023-04-05 11:22 | P.CONIM_ITS ---
Providers/Reason For Consult Consulting Physician/Specialty*: [place] MD/ Cardiology Reason for Consult*: Cardiac arrest Requesting Physician: Dr Bautista Attending Physician: Miguel Smart MD Primary Care Provider: Shadi Murray MD History of Present Illness History of Present Illness Wayne Doshi is a 77 year old male with past medical history of CAD not requiring intervention for family, Parkinson's disease, bioprosthetic mitral valve, BPH who came to hospital after he had a cardiac arrest. According to he got up from with his recliner to go to bathroom and collapsed. EMS arrived in approximately 10 minutes. CPR was initiated. Initial rhythm was PEA. ROSC was achieved. The ER he again had a PEA arrest. CT scan showed bilateral subsegmental PE. Echo shows LV systolic function is mildly reduced and RV is dilated and hypokinetic. Mildly elevated gradient across the mitral valve. However was not fully evaluated. EKG showed sinus tachycardia with right bundle branch block. 6-hour troponin peaked at 210. Review of Systems General: Reports: ROS unobtainable due to endotracheal tube Medications/Allergies Home Medications Medication Instructions Recorded Confirmed Last Taken Type acetaminophen 650 mg 650 mg PO Q8H PRN Pain 07/25/20 04/05/23 01/03/22 History tablet,extended release (Tylenol 8 Hour) aspirin 81 mg tablet,delayed 81 mg PO QAM 07/25/20 04/05/23 11/11/22 History release (Adult Low Dose Aspirin) carbidopa ER 48.75 mg-levodopa 195 2 cap PO QID 07/25/20 04/05/23 11/11/22 History mg capsule,extended release (Rytary) ropinirole 1 mg tablet 2 mg PO TID@07,10,14 07/25/20 04/05/23 11/11/22 History carbidopa ER 23.75 mg-levodopa 95 1 cap PO BID PRN parkinsons 12/02/20 04/05/23 01/03/22 History mg capsule,extended release (Rytary) multivitamin 1 tab PO QAM 12/02/20 04/05/23 11/11/22 History ascorbate calcium (vitamin C) 500 1 g PO DAILY 01/23/22 04/05/23 11/11/22 History mg tablet alpha lipoic acid 200 mg capsule 200 mg PO DAILY 01/09/2304/05/23 11/11/22 History duloxetine 60 mg capsule,delayed 60 mg PO DAILY 11/11/22 04/05/23 11/11/22 History release ferrous sulfate 324 mg (65 mg 324 mg PO EVERY OTHER DAY 11/11/22 04/05/23 11/11/22 History iron) tablet,delayed release levodopa 42 mg capsule with 42 mg inhalation QID 11/11/22 04/05/23 Unknown History inhalation device (Inbrija) midodrine 5 mg tablet 2.5 mg PO BID #15 tabs 11/11/22 04/05/23 11/11/22 Rx finasteride 5 mg tablet See Rx Instructions .Route 01/25/23 04/05/23 Unknown Rx .COMPLEX #90 tabs carvedilol 6.25 mg tablet 6.25 mg PO BID 04/05/23 04/05/23 Unknown History methenamine hippurate 1 gram tablet 1 g PO DAILY 04/05/23 04/05/23 Unknown History Allergies Allergy/AdvReac Type Severity Reaction Status Date / Time atorvastatin [From Lipitor] Allergy Unknown Unknown Verified 04/04/23 15:50 cerivastatin [From Baycol] Allergy Unknown Unknown Verified 04/04/23 15:50 fluvastatin [From Lescol] Allergy Unknown Unknown Verified 04/04/23 15:50 niacin Allergy Unknown Unknown Verified 04/04/23 15:50 [From Niaspan Extended-Release] pravastatin [From Pravachol] Allergy Unknown Unknown Verified 04/04/23 15:50 simvastatin [From Zocor] Allergy Unknown Unknown Verified 04/04/23 15:50 pregabalin [From Lyrica] Allergy ADR-Faintin Verified 04/04/23 15:50 g [id number] Reductase AdvReac ADR-Muscle Verified 04/04/23 15:50 Inhibitor Pain [[id number]-Uto-Nhl Reductase Inhibitor] Current Medications Generic Name Dose Route Start Last Admin Trade Name Freq PRN Reason Stop Dose Admin Albuterol/Ipratropium 3 ml 04/05/23 02:00 04/05/23 08:04 Ipratropium-Albuterol 3 Ml Neb INHALATION 3 ml Q6H.RESP EVETTE Administration Budesonide 0.5 mg 04/04/23 22:00 04/05/23 08:04 Budesonide 0.5 Mg/2 Ml Neb INHALATION 0.5 mg BID.RESPIRATORY EVETTE Administration Docusate Sodium 100 mg 04/05/23 09:00 04/05/23 08:42 Docusate Sodium 100 Mg Capsule PO 100 mg BID EVETTE Administration Heparin Sodium (Porcine) 0 unit 04/04/23 21:35 04/04/23 22:44 Heparin 5,000 Unit/Ml Inj 1 Ml IV 3,300 unit PRN PRN Administration Heparin weight-base protocol Protocol Epinephrine HCl 2.5 mg/ Sodium 252.5 mls @ 0 mls/hr 04/04/23 20:30 04/05/23 01:16 Chloride IV 0 mcg/kg/min .Q0M EVETTE 0 mls/hr Titration Protocol Per Protocol Propofol 1,000 mg in 100 mls @ 0 mls/hr 04/04/23 21:00 04/05/23 04:40 Diprivan IV 20 mcg/kg/min .Q0M EVETTE 7.84 mls/hr Titration Protocol Per Protocol Fentanyl 1,000 mcg/ Sodium 100 mls @ 0 mls/hr 04/04/23 21:00 04/05/23 01:19 Chloride IV 25 mcg/hr .Q0M EVETTE 2.5 mls/hr Titration Protocol Per Protocol Sodium Bicarbonate 150 meq/ 1,150 mls @ 100 mls/hr 04/04/23 21:30 04/05/23 09:44 Dextrose IV Not Given .[id number] EVETTE Norepinephrine Bitartrate 4 mg 254 mls @ 0 mls/hr 04/04/23 21:30 04/05/23 04:20 / Dextrose IV 1 mcg/min .Q0M EVETTE 3.81 mls/hr Titration Protocol Per Protocol Piperacillin Sod/Tazobactam 50 mls @ 12.5 mls/hr 04/05/23 04:00 04/05/23 04:22 Sod 3.375 gm/ Sodium Chloride IV 12.5 mls/hr Q8H EVETTE Administration Protocol Heparin Sodium/Sodium Chloride 25,000 unit in 500 mls @ 0 mls/hr 04/04/23 21:45 04/05/23 04:16 Heparin Drip IV 10.72 unit/kg/hr .Q0M EVETTE 14 mls/hr Titration Protocol Per Protocol Vancomycin/PEG/NADA/Lysine/Water 1,250 mg in 250 mls @ 250 mls/hr 04/04/23 23:00 04/05/23 00:30 Vancocin IV Infused Q18H EVETTE Infusion Midodrine 2.5 mg 04/05/23 09:00 04/05/23 08:42 Midodrine 5 Mg Tablet PO 2.5 mg BID EVETTE Administration Pantoprazole Sodium 40 mg 04/05/23 09:00 04/05/23 08:43 Pantoprazole 40 Mg Sdv IVP 40 mg DAILY EVETTE Administration PFSH Acute PFSH: Medical History (Updated 04/06/23 @ 18:16 by Miguel Smart MD) Angina pectoris Benign prostatic hyperplasia with lower urinary tract symptoms Gross hematuria Heart murmur Hx of cataract Hx of myocardial infarction Incomplete bladder emptying Neuropathy Parkinson disease Pyuria Surgical History (Updated 04/04/23 @ 23:31 by Silverio Garcia MD) Hx of mitral valve replacement Family History Father , Age 70 Stroke Mother , age 65 CAD (coronary artery disease) Social History Smoking and tobacco status: former smoker Alcohol intake: never Substance/Drug Use: unknown Adopted: No Caregiver/support person: No Lives independently: No Household members: spouse Marital status: Current occupational status: retired Vitals/I&O/Wt Last Vital Signs Temp 98.1 F 04/05/23 04:00 Pulse 65 04/05/23 10:30 Resp 18 04/05/23 10:41 BP 119/73 04/05/23 10:30 Pulse Ox 96 04/05/23 10:41 O2 Del Method Mechanical Ventilation 04/05/23 08:04 FiO2 40 04/05/23 10:41 04/04/23 04/05/23 04/05/23 22:59 06:59 14:59 Intake Total 2013. 423.342 / 3127.742 Output Total 800 / 800 Balance 2013. -376.658 / 1637.742 Weight last 48 hrs Weight 149 lb Weight 149 lb 14.629 oz Weight 144 lb Physical Exam Narrative: GENERAL: Patient is intubated. Not on sedation. Not responding. HEENT: No cyanosis. No icterus. No pallor. [] HEART: Regular S1 and S2. Has grade 2/6 systolic murmur LUNGS: Diminished air entry ABDOMEN: Soft EXTREMITIES: Lower extremities with 1+ edema bilaterally. Urinary Catheter Management: Mix: Cath Placed During This Visit: yes Reason for Continuing Indwelling Catheter: Accurate Measurement of Urinary Output in Critically Ill Patients Urinary Catheter Date of Insertion: 04/05/23 Data 04/06/23 10:05 04/06/23 00:45 Micro: Microbiology 04/04/23 22:05 Bacterial Antigens - Final Urine Kidney 04/04/23 22:05 Legionella Urinary Antigen - Final Unknown Source 04/04/23 21:57 Blood Culture - Preliminary Blood SPECIMEN COLLECTED 04/04/23 21:52 Blood Culture - Preliminary Blood SPECIMEN COLLECTED A&P Assessment and plan (1) CAD (coronary artery disease): (2) LV dysfunction: (3) Cardiac arrest: Plan Patient had PEA arrest. May need ischemic work-up if recovers neurologically. Possibly related to PE. Had RV strain on echocardiogram Continue heparin gtt Can keep off sedation to assess neurologic status. If improves, [facility] to better assess [facility] valve. Thank you for involving us with care of this patient. We will continue to follow. Please call with questions. Consult Attestations Medical Necessity Statement: Care expected to cross 2 midnights. Coding Level of Care Code [facility] Diagn[facility] CAD (coronary artery disease) I25.10 LV dysfunction I51.9 Cardiac arrest I46.9
--- NOTE | 2023-04-05 12:09 | PM.PN ---
Subjective Subjective: Patient was seen and examined this morning, continues to be intubated sedated on mechanical ventilation, Currently he is also having gross hematuria, currently he is off epinephrine as well as Levophed, bicarb drip has also been discontinued, current plan is to turn off the sedation completely and check the mentation, Continue on heparin drip for now, continue to monitor H&H. Medications: Medication Review Details: Generic Name Dose Route Start Last Admin Trade Name Freq PRN Reason Stop Dose Admin Albuterol/Ipratrop ium 3 ml 04/05/23 02:00 04/05/23 08:04 Ipratropium-Albu terol 3 Ml Neb INHALATION 3 ml Q6H.RESP EVETTE Administration Budesonide 0.5 mg 04/04/23 22:00 04/05/23 08:04 Budesonide 0.5 M g/2 Ml Neb INHALATION 0.5 mg BID.RESPIRATORY S CH Administration Docusate Sodium 100 mg 04/05/23 09:00 04/05/23 08:42 Docusate Sodium 100 Mg Capsule PO 100 mg BID EVETTE Administration Heparin Sodium (Po rcine) 0 unit 04/04/23 21:35 04/04/23 22:44 Heparin 5,000 Un it/Ml Inj 1 Ml IV 3,300 unit PRN PRN Administration Heparin weight-ba se protocol Protocol Epinephrine HCl 2. 5 mg/ Sodium 252.5 mls @ 0 mls /hr 04/04/23 20:30 04/05/23 01:16 Chloride IV 0 mcg/kg/min .Q0M EVETTE 0 mls/hr Titration Protocol Per Protocol Propofol 1,000 mg in 100 m ls @ 0 mls/hr 04/04/23 21:00 04/05/23 04:40 Diprivan IV 20 mcg/kg/min .Q0M EVETTE 7.84 mls/hr Titration Protocol Per Protocol Fentanyl 1,000 mcg / Sodium 100 mls @ 0 mls/h r 04/04/23 21:00 04/05/23 01:19 Chloride IV 25 mcg/hr .Q0M EVETTE 2.5 mls/hr Titration Protocol Per Protocol Sodium Bicarbonate 150 meq/ 1,150 mls @ 100 m ls/hr 04/04/23 21:30 04/05/23 09:44 Dextrose IV Not Given .[id number] EVETTE Norepinephrine Bit artrate 4 mg 254 mls @ 0 mls/h r 04/04/23 21:30 04/05/23 04:20 / Dextrose IV 1 mcg/min .Q0M EVETTE 3.81 mls/hr Titration Protocol Per Protocol Piperacillin Sod/T azobactam 50 mls @ 12.5 mls /hr 04/05/23 04:00 04/05/23 11:36 Sod 3.375 gm/ So dium Chloride IV 12.5 mls/hr Q8H EVETTE Administration Protocol Heparin Sodium/Sod ium Chloride 25,000 unit in 50 0 mls @ 0 mls/hr 04/04/23 21:45 04/05/23 04:16 Heparin Drip IV 10.72 unit/kg/hr .Q0M EVETTE 14 mls/hr Titration Protocol Per Protocol Vancomycin/PEG/NAD A/Lysine/Water 1,250 mg in 250 m ls @ 250 mls/hr 04/04/23 23:00 04/05/23 00:30 Vancocin IV Infused Q18H EVETTE Infusion Midodrine 2.5 mg 04/05/23 09:00 04/05/23 08:42 Midodrine 5 Mg T ablet PO 2.5 mg BID EVETTE Administration Pantoprazole Sodiu m 40 mg 04/05/23 09:00 04/05/23 08:43 Pantoprazole 40 Mg Sdv IVP 40 mg DAILY EVETTE Administration Vitals/I&O/Wt Last Vital Signs Temp 98.1 F 04/05/23 04:00 Pulse 65 04/05/23 10:30 Resp 18 04/05/23 10:41 BP 119/73 04/05/23 10:30 Pulse Ox 96 04/05/23 10:41 O2 Del Method Mechanical Ventilation 04/05/23 08:04 FiO2 40 04/05/23 10:41 04/04/23 04/05/23 04/05/23 22:59 06:59 14:59 Intake Total 2013. 423.342 / 2437.742 50 / 50 Output Total 800 / 800 Balance 2013. -376.658 / 1637.742 50 / 50 Weight last 48 hrs Weight 67.585 kg Weight 68 kg Weight 65.317 kg Physical Exam Narrative: Intubated sedated on mechanical ventilation HENMT: COMMON NORMALS: normocephalic and atraumatic HEAD & SCALP: normocephalic and atraumatic Resp: COMMON NORMALS: normal respiratory effort, No retractions, No use of accessory muscles and clear to auscultation bilaterally EFFORT & INSPECTION: Yes symmetric chest movement AUSCULTATION: clear to auscultation bilaterally Cardio: COMMON NORMALS: regular rate, regular rhythm, S1 normal heart sound present, S2 normal heart sound present, No gallops present (Cardio), No murmurs present (Cardio), No rub (Cardio) and Peripheral pulses 2+ throughout RATE: regular rate RHYTHM: regular rhythm HEART SOUNDS: S1 normal heart sound present and S2 normal heart sound present PERIPHERAL PULSES: Peripheral pulses 2+ throughout GI: COMMON NORMALS: Normal to inspection, nondistended, normoactive bowel sounds present, Soft to palpation, non-tender, No hepatosplenomegaly present and no masses AUSCULTATION: Yes normoactive bowel sounds PALPATION: Yes Soft to palpation and Yes No hepatosplenomegaly present RECTAL EXAM: Yes deferred Extremity: COMMON NORMALS: no clubbing, cyanosis or edema and no pedal edema Urinary Catheter Management: Mix: Cath Placed During This Visit: yes Reason for Continuing Indwelling Catheter: Accurate Measurement of Urinary Output in Critically Ill Patients Urinary Catheter Date of Insertion: 04/05/23 Data 04/05/23 16:57 04/05/23 16:57 Micro: Microbiology 04/04/23 22:05 Bacterial Antigens - Final Urine Kidney 04/04/23 22:05 Legionella Urinary Antigen - Final Unknown Source 04/04/23 21:57 Blood Culture - Preliminary Blood SPECIMEN COLLECTED 04/04/23 21:52 Blood Culture - Preliminary Blood SPECIMEN COLLECTED A&P Assessment and plan (1) Cardiac arrest: (2) Shock: (3) Metabolic acidosis: (4) Lactic acidosis: (5) CAD (coronary artery disease): (6) Hx of mitral valve replacement: (7) LV dysfunction: (8) Acute superficial venous thrombosis of left lower extremity: (9) Hematuria: Plan 77-year-old gentleman with past medical history of CAD not amenable to revascularization as per family, mitral bioprosthetic valve replacement presented to the ER after PEA cardiac arrest x2, ROSC achieved 2 times after overall CPR for around 30 minutes and blood work showing metabolic acidosis with lactic acidosis. Assessment: PEA cardiac arrest: ROSC achieved: CT head without contrast no acute intracranial pathology CT chest abdomen and pelvis: Suggestive of bilateral lower lobe segmental subsegmental pulmonary embolism, patchy bilateral airspace infiltrate, moderate to large bilateral pleural effusion. pericholecystic fluid with possible cholelithiasis. Lower extremity Dopplers were negative for DVT 2D echo:LV systolic function is mildly reduced with EF of 40 to 45%.??Mild global hypokinesis is seen.? Moderate hypokinesis of ?inferolateral wall is seen,?RV is dilated and is hypokinetic.?Left atrium dilation,?Possible mitral valve annuloplasty ring is seen.? Mean gradient ?is mildly elevated.?Moderate to severe tricuspid regurgitation ?Severe pulmonary hypertension,?Moderate pulmonic regurgitation. Blood culture: Patient was initially requiring minimum of Levophed as well as epinephrine, which has been currently discontinued. As the patient is maintaining pretty decent MAP. Currently patient is on heparin drip. Patient has also been empirically kept on vancomycin and Zosyn, for possible underlying pneumonia Currently on DuoNebs, budesonide inhaler. Shock: Possibly cardiogenic shock-resolved. Acute bilateral pulmonary embolism: Currently on heparin drip We will plan to switch to p.o. anticoagulation on discharge NSTEMI: Troponin trend: 42-116-210: Elevated troponin could be possibly secondary to , postcode troponin bump Currently on heparin drip. Cardiology on board Shock: Most likely cardiogenic shock. Possible pneumonia: Follow sputum Gram stain culture Antibiotic as above Severe metabolic acidosis: Possibly secondary to lactic acidosis: Resolved: Patient was initially kept on bicarb drip which has been discontinued for now Hematuria: Currently patient is on heparin drip, has gross hematuria For now we will continue on heparin drip monitor H&H, Will continue with Mix catheter flushes as needed. Acute encephalopathy: Hoping that the patient has not suffered anoxic brain injury. Currently sedation has been kept off Monitor mentation Possible repeat CT head without contrast CODE STATUS: Full code DVT prophylaxis: Not needed currently heparin drip will be sufficient Attestations Medical Necessity Statement*: Needs to be in hospital for management of NSTEMI. Coding Level of Care Code Acute Code for [facility] Diagnoses Cardiac arrest I46.9 Shock R57.9 Metabolic acidosis E87.20 Lactic acidosis E87.20 CAD (coronary artery disease) I25.10 Hx of mitral valve replacement Z95.2 LV dysfunction I51.9 Acute superficial venous thrombosis of left lower extremity I82.812 Hematuria R31.9
[2023-04-05 15:55] LABS: Partial Thromboplastin Time 49.6 SECONDS (23.9-36.7)
[2023-04-05] MEDS: vancomycin 1,250 MG/250 ML PIGGYBACK 250 MG IV (16:20)
[2023-04-05 17:09] LABS: Basophils # 0.1 10^3/uL (0.0-0.1); Basophils % 0.5 %; Hematocrit 32.6 % (42.0-52.0); Hemoglobin 10.2 g/dL (11.7-16.6); Lymphocytes # 0.4 10^3/uL (0.8-4.8); Lymphocytes % 3.4 %; Mean Corpuscular HGB Conc 31.3 g/dL (30.0-36.0); Mean Corpuscular Hemoglobin 30.4 pg (28.0-34.0); Mean Corpuscular Volume 97.3 fl (80-94); Mean Platelet Volume 9.7 fL (7.4-10.4); Monocytes # 0.7 10^3/uL (0.2-0.9); Monocytes % 6.2 %; Neutrophils % 89.3 %; Nucleated Red Blood Cells % 0 %; Platelet Count 174 10^3/cmm (130-400); Red Blood Count 3.35 10^6/uL (4.1-5.3); Red Cell Distribution Width 14.8 % (12.1-15.1); White Blood Count 10.8 10^3/uL (4.0-10.0)
[2023-04-05 17:26] LABS: Anion Gap 14.6 (5-19); Blood Urea Nitrogen 22 mg/dL (8-23); Calcium 7.7 mg/dL (8.5-10.5); Carbon Dioxide 24 mmol/L (22-29); Chloride 104 mmol/L (98-107); Glucose 118 mg/dL (65-115); Osmolality Calculated 292 mOsm/kg (285-295); Potassium 3.6 mmol/L (3.5-5.1); Sodium 139 mmol/L (136-145)
--- NOTE | 2023-04-05 18:56 | PC.NURSE ---
Shift Summary: Dr. Smart notified of continuos bleeding from central line and foly. Central line D/C and pressure bandage applied, bleeding has slowed down. sedation off. stable at this time
--- NOTE | 2023-04-05 22:20 | PC.NURSE ---
Patient pulls legs away to noxious stimuli bilat. No movement of upper exts noted. Facial grimace also noted. Intermittent weak gag with oral suction. Intermittent weak cough with ETT suction. No spontaneous eye opening. Pupils equal, sluggish, and do not track. No preferential gaze noted.
[2023-04-06] VITALS (70 sets, daily range): BP systolic 116–157; BP diastolic 65–93; PULSE 85–99; RESP 19–31; TEMP 37.8–38.3; O2SAT 90–99
[2023-04-06 01:08] LABS: Basophils # 0.1 10^3/uL (0.0-0.1); Basophils % 0.5 %; Eosinophils % 0.4 %; Hematocrit 30.7 % (42.0-52.0); Hemoglobin 9.8 g/dL (11.7-16.6); Lymphocytes # 0.6 10^3/uL (0.8-4.8); Lymphocytes % 5.6 %; Mean Corpuscular HGB Conc 31.9 g/dL (30.0-36.0); Mean Corpuscular Hemoglobin 31.3 pg (28.0-34.0); Mean Corpuscular Volume 98.1 fl (80-94); Mean Platelet Volume 10.3 fL (7.4-10.4); Monocytes # 0.7 10^3/uL (0.2-0.9); Monocytes % 6.3 %; Neutrophils # 9.37 10^3/uL (1.8-7.7); Neutrophils % 86.7 %; Nucleated Red Blood Cells % 0 %; Platelet Count 183 10^3/cmm (130-400); Red Blood Count 3.13 10^6/uL (4.1-5.3); Red Cell Distribution Width 15.2 % (12.1-15.1); White Blood Count 10.8 10^3/uL (4.0-10.0)
[2023-04-06 01:22] LABS: Alanine Aminotransferase 54 U/L (0-41); Alkaline Phosphatase 100 U/L (40-130); Blood Urea Nitrogen 24 mg/dL (8-23); Calcium 8.2 mg/dL (8.5-10.5); Carbon Dioxide 23 mmol/L (22-29); Chloride 101 mmol/L (98-107); Globulin 2.7 g/dL (1.3-4.6); Glucose 117 mg/dL (65-115); Osmolality Calculated 287 mOsm/kg (285-295); Sodium 136 mmol/L (136-145); Total Bilirubin 0.9 mg/dL (0.15-1.2); Total Protein 5.7 g/dL (6.6-8.7)
--- NOTE | 2023-04-06 01:32 | PC.PHAR ---
Vancomycin Trough to be drawn at 04/07 0400, please hold 0500 dose until drawn. Will continue to follow. Thank you, Amber Tee RPh
[2023-04-06 01:36] LABS: Anion Gap 15.6 (5-19); Aspartate Amino Transferase 63 U/L (0-40); Potassium 3.6 mmol/L (3.5-5.1)
[2023-04-06] MEDS: ipratropium-albuterol 3 mL Neb INHALATION ×4 (03:06→19:59)
[2023-04-06 03:43] LABS: ABG PCO2 29.7 mmHg (35-45); ABG PH Result 7.53 (7.35-7.45); Arterial Blood Gas Hematocrit 29.4 % (42-52); Base Excess ABG 2.6 mmol/L (-2.0-2.0); Blood Gas Allen Test Pos; Blood Gas Sample Site Radial, right; Blood Gas Sample Type Arterial; Oxygen Device VENT
[2023-04-06 05:37] LABS: Partial Thromboplastin Time 51.8 SECONDS (23.9-36.7)
[2023-04-06] MEDS: piperacillin-tazobactam 3.375 GM in sodium chloride 0.9% (plus) 50 ML IV ×3 (05:47→20:51)
[2023-04-06] MEDS: budesonide 0.5 mg/2 mL Neb INHALATION ×2 (08:07→19:59)
--- NOTE | 2023-04-06 08:17 | CT_ITS ---
WS: [id number] CT HEAD TECHNIQUE: Noncontrast CT of the head obtained from the skullbase to the vertex. CLINICAL INFORMATION: encephalopathy s/p cardiac arrest COMPARISON: CT April 04, 2023 DLP: 1315.[address] scans at [facility] use at least one of these dose optimization techniques: automated e xposure control; mA and/or kV adjustment per patient size (includes targeted exams where dose is matc hed to clinical indication); or iterative reconstruction. FINDINGS: No evidence of intracranial hemorrhage or mass effect. Ventricular system and basal cisterns are taylor nt. Advanced small vessel changes with moderate parenchymal volume loss. No extra-axial fluid collect ions. No evidence of mass or mass effect. Inspissated secretions RIGHT maxillary sinus and complete opacification. Normal visualized posterior nasopharynx and mastoid air cells. IMPRESSION: 1. No evidence of intracranial hemorrhage or mass effect. 2. Advanced small vessel changes. Moderate parenchymal volume loss. 3. Intracranial vascular calcification. 4. Inspissated secretions RIGHT maxillary sinus. 5. No significant interval changes.
[2023-04-06] MEDS: docusate sodium 100 mg Capsule PO ×2 (08:56→17:38)
[2023-04-06] MEDS: midodrine 5 mg TABLET 2.5 MG PO ×2 (08:56→17:38)
[2023-04-06] MEDS: pantoprazole 40 mg SDV IVP (08:56)
[2023-04-06 10:22] LABS: Basophils % 0.3 %; Hematocrit 29.1 % (42.0-52.0); Hemoglobin 9.3 g/dL (11.7-16.6); Lymphocytes # 0.5 10^3/uL (0.8-4.8); Lymphocytes % 4.7 %; Mean Corpuscular Hemoglobin 31.3 pg (28.0-34.0); Mean Platelet Volume 9.9 fL (7.4-10.4); Monocytes # 0.7 10^3/uL (0.2-0.9); Monocytes % 6.3 %; Neutrophils # 9.87 10^3/uL (1.8-7.7); Neutrophils % 88.3 %; Nucleated Red Blood Cells % 0 %; Platelet Count 167 10^3/cmm (130-400); Red Blood Count 2.97 10^6/uL (4.1-5.3); Red Cell Distribution Width 15.1 % (12.1-15.1); White Blood Count 11.2 10^3/uL (4.0-10.0)
[2023-04-06] MEDS: vancomycin 1,250 MG/250 ML PIGGYBACK 250 MG IV (10:41)
[2023-04-06] MEDS: heparin drip 25,000 UNIT/500 ML PREMIX 15 UNIT IV (10:46)
--- NOTE | 2023-04-06 18:14 | PM.PN ---
Subjective Subjective: Patient was seen and examined this morning, continues to be intubated on mechanical ventilation, Patient is not making any meaningful change in his mentation, withdraws to pain, he has been off sedation For most part since yesterday, had to be placed on, very small dose of fentanyl, overnight to facilitate, vent compliance, as the patient was breathing over the vent with respiratory rate in 30s. Patient has also started spiking temperature noted Tmax of: 101.7, hematuria has resolved, left IJ central line has been removed, as it was oozing blood. Pressure dressing has been applied. Medications: Medication Review Details: Generic Name Dose Route Start Last Admin Trade Name Freq PRN Reason Stop Dose Admin Albuterol/Ipratrop ium 3 ml 04/05/23 02:00 04/06/23 13:07 Ipratropium-Albu terol 3 Ml Neb INHALATION 3 ml Q6H.RESP EVETTE Administration Budesonide 0.5 mg 04/04/23 22:00 04/06/23 08:07 Budesonide 0.5 M g/2 Ml Neb INHALATION 0.5 mg BID.RESPIRATORY S CH Administration Docusate Sodium 100 mg 04/05/23 09:00 04/06/23 17:38 Docusate Sodium 100 Mg Capsule PO 100 mg BID EVETTE Administration Heparin Sodium (Po rcine) 0 unit 04/04/23 21:35 04/04/23 22:44 Heparin 5,000 Un it/Ml Inj 1 Ml IV 3,300 unit PRN PRN Administration Heparin weight-ba se protocol Protocol Epinephrine HCl 2. 5 mg/ Sodium 252.5 mls @ 0 mls /hr 04/04/23 20:30 04/05/23 01:16 Chloride IV 0 mcg/kg/min .Q0M EVETTE 0 mls/hr Titration Protocol Per Protocol Propofol 1,000 mg in 100 m ls @ 0 mls/hr 04/04/23 21:00 04/05/23 08:00 Diprivan IV 0 mcg/kg/min .Q0M EVETTE 0 mls/hr Titration Protocol Per Protocol Fentanyl 1,000 mcg / Sodium 100 mls @ 0 mls/h r 04/04/23 21:00 04/06/23 05:00 Chloride IV 50 mcg/hr .Q0M EVETTE 5 mls/hr Titration Protocol Per Protocol Norepinephrine Bit artrate 4 mg 254 mls @ 0 mls/h r 04/04/23 21:30 04/05/23 08:00 / Dextrose IV 0 mcg/min .Q0M EVETTE 0 mls/hr Titration Protocol Per Protocol Piperacillin Sod/T azobactam 50 mls @ 12.5 mls /hr 04/05/23 04:00 04/06/23 11:42 Sod 3.375 gm/ So dium Chloride IV 12.5 mls/hr Q8H EVETTE Administration Protocol Heparin Sodium/Sod ium Chloride 25,000 unit in 50 0 mls @ 0 mls/hr 04/04/23 21:45 04/06/23 10:46 Heparin Drip IV 11.48 unit/kg/hr .Q0M EVETTE 15 mls/hr Administration Protocol Per Protocol Vancomycin/PEG/NAD A/Lysine/Water 1,250 mg in 250 m ls @ 250 mls/hr 04/04/23 23:00 04/06/23 10:41 Vancocin IV 250 mls/hr Q18H EVETTE Administration Midodrine 2.5 mg 04/05/23 09:00 04/06/23 17:38 Midodrine 5 Mg T ablet PO 2.5 mg BID EVETTE Administration Pantoprazole Sodiu m 40 mg 04/05/23 09:00 04/06/23 08:56 Pantoprazole 40 Mg Sdv IVP 40 mg DAILY EVETTE Administration Vitals/I&O/Wt Last Vital Signs Temp 101.0 F H 04/06/23 04:00 Pulse 96 04/06/23 18:00 Resp 25 H 04/06/23 18:03 BP 133/78 04/06/23 18:00 Pulse Ox 97 04/06/23 18:03 O2 Del Method Mechanical Ventilation 04/06/23 13:07 O2 Flow Rate 40 04/06/23 04:30 FiO2 35 04/06/23 18:03 04/06/23 04/06/23 04/06/23 06:59 14:59 22:59 Intake Total 53.00 / 631.778 279.933 / 279.933 Output Total 1000 / 1860 500 / 500 Balance -947.00 / -1228.222 279.933 / 279.933 -500 / -220.067 Weight last 48 hrs Weight 67.585 kg Weight 68 kg Weight 65.317 kg Physical Exam Narrative: Intubated on mechanical ventilation HENMT: COMMON NORMALS: normocephalic and atraumatic HEAD & SCALP: normocephalic and atraumatic Resp: COMMON NORMALS: normal respiratory effort, No retractions, No use of accessory muscles and clear to auscultation bilaterally EFFORT & INSPECTION: Yes symmetric chest movement AUSCULTATION: clear to auscultation bilaterally Cardio: COMMON NORMALS: regular rate, regular rhythm, S1 normal heart sound present, S2 normal heart sound present, No gallops present (Cardio), No murmurs present (Cardio), No rub (Cardio) and Peripheral pulses 2+ throughout RATE: regular rate RHYTHM: regular rhythm HEART SOUNDS: S1 normal heart sound present and S2 normal heart sound present PERIPHERAL PULSES: Peripheral pulses 2+ throughout GI: COMMON NORMALS: Normal to inspection, nondistended, normoactive bowel sounds present, Soft to palpation, non-tender, No hepatosplenomegaly present and no masses AUSCULTATION: Yes normoactive bowel sounds PALPATION: Yes Soft to palpation and Yes No hepatosplenomegaly present RECTAL EXAM: Yes deferred Extremity: COMMON NORMALS: no clubbing, cyanosis or edema and no pedal edema Urinary Catheter Management: Mix: Cath Placed During This Visit: yes Reason for Continuing Indwelling Catheter: Accurate Measurement of Urinary Output in Critically Ill Patients Urinary Catheter Date of Insertion: 04/05/23 Data 04/06/23 10:05 04/06/23 00:45 Micro: Microbiology 04/04/23 20:18 MRSA Culture - Final Nose 04/05/23 18:15 Gram Stain - Final Sputum - Endotracheal Tube Aspirate Sputum Culture - Preliminary Gram Negative Rods 04/04/23 22:05 Urine Culture - Preliminary Urine,Clean Catch Gram Negative Rods 04/04/23 21:57 Blood Culture - Preliminary Blood NEGATIVE TO DATE 04/04/23 21:52 Blood Culture - Preliminary Blood NEGATIVE TO DATE A&P Assessment and plan (1) Cardiac arrest: (2) Shock: (3) Metabolic acidosis: (4) Lactic acidosis: (5) CAD (coronary artery disease): (6) Hx of mitral valve replacement: (7) LV dysfunction: (8) Acute superficial venous thrombosis of left lower extremity: (9) Hematuria: (10) Fever: Plan 77-year-old gentleman with past medical history of CAD not amenable to revascularization as per family, mitral bioprosthetic valve replacement presented to the ER after PEA cardiac arrest x2, ROSC achieved 2 times after overall CPR for around 30 minutes and blood work showing metabolic acidosis with lactic acidosis. Assessment: PEA cardiac arrest: ROSC achieved: CT head without contrast no acute intracranial pathology CT chest abdomen and pelvis: Suggestive of bilateral lower lobe segmental subsegmental pulmonary embolism, patchy bilateral airspace infiltrate, moderate to large bilateral pleural effusion. pericholecystic fluid with possible cholelithiasis. Lower extremity Dopplers were negative for DVT 2D echo:LV systolic function is mildly reduced with EF of 40 to 45%.??Mild global hypokinesis is seen.? Moderate hypokinesis of ?inferolateral wall is seen,?RV is dilated and is hypokinetic.?Left atrium dilation,?Possible mitral valve annuloplasty ring is seen.? Mean gradient ?is mildly elevated.?Moderate to severe tricuspid regurgitation ?Severe pulmonary hypertension,?Moderate pulmonic regurgitation. Blood culture:NTD MRSA PCR negative Urine Legionella antigen negative Bacterial antigen panel negative Sputum Gram stain and culture: Gram-negative alice Urine culture gram-negative alice Patient was initially requiring minimum of Levophed as well as epinephrine, which has been currently discontinued. As the patient is maintaining pretty decent MAP. Currently patient is on heparin drip. Patient has also been empirically kept on vancomycin and Zosyn, for possible underlying pneumonia Currently on DuoNebs, budesonide inhaler. Shock: Possibly cardiogenic shock-resolved. Acute bilateral pulmonary embolism: Currently on heparin drip We will plan to switch to p.o. anticoagulation on discharge NSTEMI: Troponin trend: 42-116-210: Elevated troponin could be possibly secondary to , postcode troponin bump Currently on heparin drip. Cardiology on board Shock: Most likely cardiogenic shock. Possible pneumonia: Follow sputum Gram stain culture Antibiotic as above Fever: Possibly secondary to pneumonia, UTI Plan as above UTI: Urine culture gram-negative alcie Currently appropriately covered with broad-spectrum antibiotic. Severe metabolic acidosis: Possibly secondary to lactic acidosis: Resolved: Patient was initially kept on bicarb drip which has been discontinued for now Hematuria: Resolved urine is clearing. Currently patient is on heparin drip, has gross hematuria For now we will continue on heparin drip monitor H&H, Will continue with Mix catheter flushes as needed. Acute encephalopathy: Hoping that the patient has not suffered anoxic brain injury. Currently sedation has been kept off Monitor mentation CT head without contrast ( 04/06) : No evidence of intracranial hemorrhage or mass effect. Possible neurology consult for EEG, if the patient fails to show any meaningful improvement in the mentation. CODE STATUS: Full code DVT prophylaxis: Not needed currently heparin drip will be sufficient Attestations Medical Necessity Statement*: Needs to be in hospital for management of encephalopathy. Coding Level of Care Code Acute Code for g Fwd Diagnoses Cardiac arrest I46.9 Shock R57.9 Metabolic acidosis E87.20 Lactic acidosis E87.20 CAD (coronary artery disease) I25.10 Hx of mitral valve replacement Z95.2 LV dysfunction I51.9 Acute superficial venous thrombosis of left lower extremity I82.812 Hematuria R31.9 Fever R50.9
--- NOTE | 2023-04-06 18:52 | PM.PN ---
Subjective Subjective: Patient's condition is unchanged. Vitals/I&O/Wt Last Vital Signs Temp 101.0 F H 04/06/23 04:00 Pulse 96 04/06/23 18:00 Resp 25 H 04/06/23 18:03 BP 133/78 04/06/23 18:00 Pulse Ox 97 04/06/23 18:03 O2 Del Method Mechanical Ventilation 04/06/23 13:07 O2 Flow Rate 40 04/06/23 04:30 FiO2 35 04/06/23 18:03 04/06/23 04/06/23 04/06/23 06:59 14:59 22:59 Intake Total 53.00 / 631.778 279.933 / 279.933 Output Total 1000 / 1860 500 / 500 Balance -947.00 / -1228.222 279.933 / 279.933 -500 / -220.067 Weight last 48 hrs Weight 149 lb Weight 149 lb 14.629 oz Weight 144 lb Physical Exam Narrative: GENERAL: Patient is intubated. Not on sedation. Not responding. HEENT: No cyanosis. No icterus. No pallor. [] HEART: Regular S1 and S2. Has grade 2/6 systolic murmur LUNGS: Diminished air entry ABDOMEN: Soft EXTREMITIES: Lower extremities with 1+ edema bilaterally. Urinary Catheter Management: Mix: Cath Placed During This Visit: yes Reason for Continuing Indwelling Catheter: Accurate Measurement of Urinary Output in Critically Ill Patients Urinary Catheter Date of Insertion: 04/05/23 Data 04/08/23 08:09 04/08/23 08:09 Micro: Microbiology 04/04/23 20:18 MRSA Culture - Final Nose 04/05/23 18:15 Gram Stain - Final Sputum - Endotracheal Tube Aspirate Sputum Culture - Preliminary Gram Negative Rods 04/04/23 22:05 Urine Culture - Preliminary Urine,Clean Catch Gram Negative Rods 04/04/23 21:57 Blood Culture - Preliminary Blood NEGATIVE TO DATE 04/04/23 21:52 Blood Culture - Preliminary Blood NEGATIVE TO DATE A&P Assessment and plan (1) CAD (coronary artery disease): (2) LV dysfunction: (3) Cardiac arrest: Plan Patient still not responding. If patient recovers, will recommend ischemic work-up. Medical therapy Thank you for involving us with care of this patient. Please call with questions. Attestations Medical Necessity Statement*: Care expected to cross 2 midnights. Coding Level of Care Code Acute Code for Chg Fwd Diagnoses CAD (coronary artery disease) I25.10 LV dysfunction I51.9 Cardiac arrest I46.9
[2023-04-06 20:05] LABS: Partial Thromboplastin Time 36.7 SECONDS (23.9-36.7)
[2023-04-06] MEDS: heparin 5,000 unit/mL INJ 1 mL IV (21:03)
[2023-04-07] VITALS (38 sets, daily range): BP systolic 142–179; BP diastolic 80–110; PULSE 85–93; RESP 16–28; TEMP 37.7–38.6; O2SAT 96–99
[2023-04-07] MEDS: ipratropium-albuterol 3 mL Neb INHALATION ×4 (01:42→20:18)
[2023-04-07 03:18] LABS: Partial Thromboplastin Time 52.8 SECONDS (23.9-36.7)
[2023-04-07 03:24] LABS: Alanine Aminotransferase 65 U/L (0-41); Albumin Level 2.9 g/dL (3.5-5.2); Alkaline Phosphatase 84 U/L (40-130); Anion Gap 14.6 (5-19); Aspartate Amino Transferase 43 U/L (0-40); Blood Urea Nitrogen 28 mg/dL (8-23); Calcium 8.2 mg/dL (8.5-10.5); Carbon Dioxide 23 mmol/L (22-29); Chloride 105 mmol/L (98-107); Globulin 2.8 g/dL (1.3-4.6); Glucose 128 mg/dL (65-115); Osmolality Calculated 295 mOsm/kg (285-295); Potassium 3.6 mmol/L (3.5-5.1); Sodium 139 mmol/L (136-145); Total Bilirubin 1.1 mg/dL (0.15-1.2); Total Protein 5.7 g/dL (6.6-8.7)
[2023-04-07 03:28] LABS: Vancomycin Trough 12.9 ug/mL (10-15)
[2023-04-07] MEDS: vancomycin 1,250 MG/250 ML PIGGYBACK 250 MG IV ×2 (04:49→23:24)
[2023-04-07] MEDS: piperacillin-tazobactam 3.375 GM in sodium chloride 0.9% (plus) 50 ML IV ×3 (04:50→20:02)
[2023-04-07 04:56] LABS: ABG PCO2 35.4 mmHg (35-45); ABG PH Result 7.48 (7.35-7.45); Arterial Blood Gas Hematocrit 47.1 % (42-52); Base Excess ABG 2.8 mmol/L (-2.0-2.0); Blood Gas Allen Test Pos; Blood Gas Operator Identificat JB; Blood Gas Sample Site Radial, right; Blood Gas Sample Type Arterial; HCO3 ABG 26.1 mmol/L (22-26); Oxygen Device VENT
--- NOTE | 2023-04-07 07:25 | PC.NURSE ---
04/05/2023: 2230 Due to bleeding at former central line site, ok to hold heparin gtt at current rate, no bolus per Dr. Garces
[2023-04-07] MEDS: budesonide 0.5 mg/2 mL Neb INHALATION ×2 (08:07→20:18)
[2023-04-07] MEDS: docusate sodium 100 mg Capsule PO ×2 (10:22→18:41)
[2023-04-07] MEDS: midodrine 5 mg TABLET 2.5 MG PO (10:22)
[2023-04-07] MEDS: pantoprazole 40 mg SDV IVP (10:23)
[2023-04-07 10:57] LABS: Basophils % 0.4 %; Eosinophils # 0.1 10^3/uL (0.0-0.8); Eosinophils % 0.5 %; Hematocrit 28.3 % (42.0-52.0); Hemoglobin 8.8 g/dL (11.7-16.6); Lymphocytes # 0.4 10^3/uL (0.8-4.8); Lymphocytes % 4.4 %; Mean Corpuscular HGB Conc 31.1 g/dL (30.0-36.0); Mean Corpuscular Hemoglobin 30.8 pg (28.0-34.0); Monocytes # 0.7 10^3/uL (0.2-0.9); Monocytes % 6.5 %; Neutrophils # 8.81 10^3/uL (1.8-7.7); Neutrophils % 87.5 %; Nucleated Red Blood Cells % 0 %; Platelet Count 173 10^3/cmm (130-400); Red Blood Count 2.86 10^6/uL (4.1-5.3); Red Cell Distribution Width 14.9 % (12.1-15.1); White Blood Count 10.1 10^3/uL (4.0-10.0)
[2023-04-07 11:06] LABS: Partial Thromboplastin Time 42.7 SECONDS (23.9-36.7)
[2023-04-07] MEDS: heparin 5,000 unit/mL INJ 1 mL IV (12:25)
--- NOTE | 2023-04-07 12:46 | PC.SOCIAL ---
Imm update Imm not updated as patient remains intubated and is not expected to dc in the next 24 hours.
--- NOTE | 2023-04-07 15:48 | P.PN_ITS ---
Subjective Subjective: Remains unresponsive on the ventilator. is at bedside and I discussed the case in detail. Medications: Reviewed: Yes Vitals/I&O/Wt Last Vital Signs Temp 100 F H 04/07/23 08:00 Pulse 87 04/07/23 14:00 Resp 25 H 04/07/23 14:00 BP 142/85 04/07/23 12:00 Pulse Ox 98 04/07/23 13:34 O2 Del Method Mechanical Ventilation 04/07/23 13:32 O2 Flow Rate 40 04/06/23 04:30 FiO2 30 04/07/23 13:34 04/07/23 04/07/23 04/07/23 06:59 14:59 22:59 Intake Total 226.4 / 1021.958 186.9 / 186.9 Output Total 350 / 1050 200 / 200 Balance -123.6 / -28.042 -13.1 / -13.1 Weight last 48 hrs Weight 66.678 kg Physical Exam Narrative: General exam is no apparent distress Neck is supple Cardiovascular regular rate and rhythm with a 2/6 systolic murmur Lungs clear Abdomen is soft nontender positive bowel sounds Extremities no sinus clubbing or edema demonstrates Mix Urinary Catheter Management: Mix: Cath Placed During This Visit: yes Reason for Continuing Indwelling Catheter: Accurate Measurement of Urinary Output in Critically Ill Patients Urinary Catheter Date of Insertion: 04/05/23 Data 04/07/23 09:37 04/07/23 02:53 Micro: Microbiology 04/05/23 18:15 Gram Stain - Final Sputum - Endotracheal Tube Aspirate Sputum Culture - Final Klebsiella oxytoca 04/04/23 22:05 Urine Culture - Final Urine,Clean Catch Klebsiella pneumoniae 04/04/23 20:18 MRSA Culture - Final Nose A&P Assessment and plan (1) Cardiac arrest: ROSC was achieved, but patient has yet to have any meaningful response All sedation has been held, he is going on 24 to 48 hours. It appears he may be in a vegetative state. Repeat CT scan was done which did not demonstrate any bleeding, or stroke Extensive discussion with , that we will reevaluate tomorrow. Discussed with her we may need to make some decision about what the patient would want in this situation. (2) Shock: Resolved (3) Metabolic acidosis: Resolved (4) CAD (coronary artery disease): (5) Hx of mitral valve replacement: (6) Acute superficial venous thrombosis of left lower extremity: (7) Pneumonia: Continue vancomycin and Zosyn Sputum has grown gram-negative alice, Klebsiella oxytoca (8) Pulmonary embolism: Continue heparin drip Plan Reduced ejection fraction, around 40%. Cardiology has been consulted. If has meaningful recovery could consider further work-up. Associated with non-ST elevation myocardial infarction UTI has grown Klebsiella pneumonia Hematuria, resolving Protonix for GI prophylaxis Heparin will suffice for DVT prophylaxis Attestations Medical Necessity Statement*: Needs continued hospitalization for IV antibiotics for pneumonia and UTI as well as ventilatory support while it is determined if meaningful recovery can occur from a neurologic standpoint. Critical Care Time: The high probability of a clinically significant, sudden or life threatening deterioration of the patient's neurologic, cardiac system(s) required my full and direct attention, intervention and personal management. The critical care time is as shown. This time is in addition to time spent performing any reported procedures but includes the following: [x] Data and vital sign review and interpretation [x] Patient assessment, examination and intervention [x] Documentation [x] Medication orders and management Critical Care Time (min): 45 Coding Level of Care Code Critical Care >/= 30 minutes Critical care time (in minutes): 45 The high probability of a clinically significant, sudden or life threatening deterioration, as referenced in this documentation, required my full and direct attention, intervention and personal management. The critical care time shown is in addition to time spent performing any reported separately billable procedures and includes the following: [x] Data and vital sign review and interpretation [x ] Patient assessment, examination and intervention [x] Medication orders and management [x] Patient/Family updates as able [x] Care Coordination and Documentation. Diagnoses Cardiac arrest I46.9 Shock R57.9 Metabolic acidosis E87.20 CAD (coronary artery disease) I25.10 Hx of mitral valve replacement Z95.2 Acute superficial venous thrombosis of left lower extremity I82.812 Pneumonia J18.9 Pulmonary embolism I26.99
[2023-04-07 16:36] LABS: Partial Thromboplastin Time 23.8 SECONDS (23.9-36.7)
--- NOTE | 2023-04-07 18:00 | PC.NURSE ---
Heparin gtt: PTT of 23. 8. Significant drop since last PTT of 421.7. gerardo. after Bolus and rate increase. Call lab and requested another PTT to verify, ordered STAT. Will not adjust rate or treat until value verified. Dr Guan, on unit, notified of value and suspicion of it being incorrect.
[2023-04-07 18:41] LABS: Partial Thromboplastin Time 46.2 SECONDS (23.9-36.7)
[2023-04-07] MEDS: heparin drip 25,000 UNIT/500 ML PREMIX 20 UNIT IV (18:42)
--- NOTE | 2023-04-07 20:06 | PC.NURSE ---
Addendum entered by Bhavna Shah RN 04/07/23 20:16: Redrawn PTT value back, higher a 46.7. reviewed this value and heparin protocol with oncoming nurse Jimmie. Jimmie to make appropriate adjustments Original Note: Shift report: Pt remains intubated. No changes in vet settings this shift. Fentanyl has been off since 1899. Pt has not opened his eyes this shift. MARY noted. Pt has not moved his upper extremities. He has grimaced when his sternum rubbed lightly. he does chew on the Domingo swabs, he did not have a gag reflex. His stated he has a poor gag reflex at best. He does move his feet and have a positive Babinski. Heparin gtt remains infusing, adjusted per protocol. His right neck has a green/purple bruise from CVL. No bleeding or hematoma at site. Pt does have scabbed skin tears on his left arm. His sternum is lightly bruised with small abrasions. Urine output of 45oml of dark yellow urine noted. Family has been attentive at bedside. Evelyne, his ,has been kept updated condition and plan of care.
[2023-04-08] VITALS (33 sets, daily range): BP systolic 130–175; BP diastolic 76–107; PULSE 75–99; RESP 16–35; TEMP 36.5–37.9; O2SAT 95–100
[2023-04-08 01:34] LABS: Partial Thromboplastin Time 47.1 SECONDS (23.9-36.7)
[2023-04-08] MEDS: ipratropium-albuterol 3 mL Neb INHALATION ×2 (01:37→07:22)
[2023-04-08] MEDS: heparin 5,000 unit/mL INJ 1 mL IV (01:45)
[2023-04-08] MEDS: piperacillin-tazobactam 3.375 GM in sodium chloride 0.9% (plus) 50 ML IV (04:45)
--- NOTE | 2023-04-08 06:35 | PC.NURSE ---
Patient was unable to open eyes or follow any commands for this nurse. Gag reflex was observed with use of flexible suction yonker. Patient also will bite objects placed in mouth. remained at bedside through shift.
--- NOTE | 2023-04-08 07:09 | XRR_ITS ---
PROCEDURE INFORMATION: Exam: XR Chest Exam date and time: 04/08/2023 6:17 AM Age: 77 years old Clinical indication: Condition or disease; Lung condition and disease; Respiratory failure; Status not specified; Additional info: Resp failure TECHNIQUE: Imaging protocol: Radiologic exam of the chest. Views: 1 view. COMPARISON: CR (CHEST, ) 04/04/2023 8:49 PM FINDINGS: Tubes, catheters and devices: Life support catheter stable in position. Lungs: Hazy central ground-glass pulmonary opacities redemonstrated, slightly more prominent on the right. Pleural spaces: Pleural effusions greater on right than left are more prominent than comparison. Negative for pneumothorax. Heart/Mediastinum: Aortic valve replacement. Cardiac enlargement. Bones/joints: Unremarkable. XR/XR chest 1V portable [id number] IMPRESSION: Increased intrathoracic fluid overload.
[2023-04-08] MEDS: budesonide 0.5 mg/2 mL Neb INHALATION (07:22)
[2023-04-08 07:45] LABS: ABG PCO2 28.1 mmHg (35-45); ABG PH Result 7.56 (7.35-7.45); Base Excess ABG 3.6 mmol/L (-2.0-2.0); Blood Gas Allen Test Pos; Blood Gas Operator Identificat GD; Blood Gas Sample Site Radial, right; Blood Gas Sample Type Arterial; HCO3 ABG 25.3 mmol/L (22-26); Oxygen Device VENT
[2023-04-08 08:27] LABS: Basophils % 0.3 %; Hematocrit 29.6 % (42.0-52.0); Hemoglobin 9.2 g/dL (11.7-16.6); Lymphocytes # 0.7 10^3/uL (0.8-4.8); Lymphocytes % 7.8 %; Mean Corpuscular HGB Conc 31.1 g/dL (30.0-36.0); Mean Corpuscular Volume 99.7 fl (80-94); Mean Platelet Volume 9.8 fL (7.4-10.4); Monocytes # 0.7 10^3/uL (0.2-0.9); Monocytes % 7.7 %; Neutrophils # 7.33 10^3/uL (1.8-7.7); Neutrophils % 83.4 %; Nucleated Red Blood Cells % 0 %; Platelet Count 185 10^3/cmm (130-400); Red Blood Count 2.97 10^6/uL (4.1-5.3); Red Cell Distribution Width 14.8 % (12.1-15.1); White Blood Count 8.8 10^3/uL (4.0-10.0)
[2023-04-08 08:40] LABS: Partial Thromboplastin Time 45.7 SECONDS (23.9-36.7)
[2023-04-08 08:47] LABS: Alanine Aminotransferase 66 U/L (0-41); Albumin Level 2.7 g/dL (3.5-5.2); Alkaline Phosphatase 69 U/L (40-130); Anion Gap 17.1 (5-19); Aspartate Amino Transferase 44 U/L (0-40); Blood Urea Nitrogen 31 mg/dL (8-23); Calcium 8.4 mg/dL (8.5-10.5); Carbon Dioxide 22 mmol/L (22-29); Chloride 103 mmol/L (98-107); Globulin 3.4 g/dL (1.3-4.6); Glucose 119 mg/dL (65-115); Osmolality Calculated 296 mOsm/kg (285-295); Potassium 3.1 mmol/L (3.5-5.1); Sodium 139 mmol/L (136-145); Total Bilirubin 1.3 mg/dL (0.15-1.2); Total Protein 6.1 g/dL (6.6-8.7)
[2023-04-08] MEDS: ropinirole 1 mg Tablet 2 MG PO (10:50)
[2023-04-08] MEDS: carvedilol 6.25 mg Tablet PO (10:50)
[2023-04-08] MEDS: duloxetine 60 mg Capsule PO (10:50)
[2023-04-08] MEDS: pantoprazole 40 mg SDV IVP (10:50)
[2023-04-08] MEDS: lidocaine 1% 5 ML in potassium chloride premix 100 ML 26.25 ML IV (10:51)
--- NOTE | 2023-04-08 13:18 | PM.PN ---
Subjective Subjective: Wayne was seen multiple times this morning, and discussions with family regarding CODE STATUS. He is unresponsive. Medications: Reviewed: Yes Vitals/I&O/Wt Last Vital Signs Temp 100.3 F H 04/08/23 08:00 Pulse 93 04/08/23 11:00 Resp 28 H 04/08/23 11:31 BP 175/102 04/08/23 11:00 Pulse Ox 96 04/08/23 11:31 O2 Del Method Mechanical Ventilation 04/08/23 07:10 O2 Flow Rate 40 04/06/23 04:30 FiO2 24 04/08/23 11:31 04/07/23 04/08/23 04/08/23 22:59 06:59 14:59 Intake Total 139.95 / 326.85 411.6 / 738.45 Output Total 250 / 450 400 / 850 Balance -110.05 / -123.15 11.6 / -111.55 Weight last 48 hrs Weight 73.482 kg Weight 66.678 kg Physical Exam Narrative: General exam is no apparent distress, on ventilator HEENT: Endotracheal tube, oropharyngeal tube noted Neck is supple Cardiovascular regular rate and rhythm with a 2/6 systolic murmur Lungs clear Abdomen is soft nontender positive bowel sounds Extremities no sinus clubbing or edema demonstrates Mix Neuro: Not responsive. Occasional myoclonic jerk Urinary Catheter Management: Mix: Cath Placed During This Visit: yes Reason for Continuing Indwelling Catheter: Accurate Measurement of Urinary Output in Critically Ill Patients Urinary Catheter Date of Insertion: 04/05/23 Data 04/08/23 08:09 04/08/23 08:09 Micro: Microbiology 04/05/23 18:15 Gram Stain - Final Sputum - Endotracheal Tube Aspirate Sputum Culture - Final Klebsiella oxytoca 04/04/23 22:05 Urine Culture - Final Urine,Clean Catch Klebsiella pneumoniae A&P Assessment and plan (1) Cardiac arrest: ROSC was achieved, but patient has yet to have any meaningful response All sedation has been held, he is going on 48 to 72 hours hours. It appears he may be in a vegetative state. He is having occasional myoclonic jerks Repeat CT scan was done which did not demonstrate any bleeding, or stroke Extensive discussion with , and son. This afternoon they have decided to make comfort. Long discussion regarding end-of-life care. (2) Shock: Resolved (3) Metabolic acidosis: Resolved (4) CAD (coronary artery disease): (5) Hx of mitral valve replacement: (6) Acute superficial venous thrombosis of left lower extremity: (7) Pneumonia: Proceeding with comfort. Antibiotics discontinued (8) Pulmonary embolism: Continue heparin drip Plan Reduced ejection fraction, around 40%. Proceeding with comfort UTI discontinue antibiotics, proceeding with comfort Hematuria, resolving Protonix for GI prophylaxis Heparin will suffice for DVT prophylaxis Attestations Medical Necessity Statement*: Needs continued hospitalization for extubation, comfort measure institution Diagnoses Cardiac arrest I46.9 Shock R57.9 Metabolic acidosis E87.20 CAD (coronary artery disease) I25.10 Hx of mitral valve replacement Z95.2 Acute superficial venous thrombosis of left lower extremity I82.812 Pneumonia J18.9 Pulmonary embolism I26.99 Time Spent (min) 68
--- NOTE | 2023-04-08 13:33 | PC.NURSE ---
Pt was extubated at 1330 to comfort care with family at bedside.
[2023-04-08] MEDS: morphine 4 mg/mL SDV 1 mL IVP ×2 (16:03→22:35)
[2023-04-08] MEDS: artificial tears Op Soln 15 mL Btl 2 DROP EYE-BOTH (22:22)
[2023-04-08] MEDS: blistex lip oint 7 gm Tube 1 APPLIC TOPICAL (22:22)
[2023-04-08] MEDS: glycopyrrolate 0.2 mg/mL SDV 2 mL IV (22:32)
[2023-04-09] VITALS (15 sets, daily range): BP systolic 135–172; BP diastolic 74–91; PULSE 81–95; RESP 15–30; TEMP 38.4; O2SAT 91
[2023-04-09] MEDS: blistex lip oint 7 gm Tube 1 APPLIC TOPICAL (00:34)
[2023-04-09] MEDS: glycopyrrolate 0.2 mg/mL SDV 2 mL IV (02:38)
[2023-04-09] MEDS: morphine 4 mg/mL SDV 1 mL IVP ×4 (05:09→23:01)
--- NOTE | 2023-04-09 06:05 | PC.NURSE ---
Patient status remained unchanged during this nurse's shift. Frequent comfort measures provided including turns, oral care, lip moistening, breathing and secretion control. Family remained at bedside throughout shift.
--- NOTE | 2023-04-09 11:53 | P.PN_ITS ---
Subjective Subjective: Patient is currently on comfort care. Medications: Reviewed: Yes Medication Review Details: Generic Name Dose Route Start Last Admin Trade Name Freq PRN Reason Stop Dose Admin Artificial Tears 2 drop 04/08/23 13:10 04/08/23 22:22 Artificial Tears Op Soln 15 Ml Btl EYE-BOTH 2 drop Q2H PRN Administration DRY EYE(S) Atropine Sulfate 3 drop 04/08/23 13:10 04/09/23 05:09 Atropine 1% Op S oln 5 Ml Btl SUBLINGUAL 3 drop Q4H PRN Administration Excessive Secreti ons, Rattling Camphor/Menthol/Ph enol 1 applic 04/08/23 13:10 04/09/23 00:34 Blistex Lip Oint 7 Gm Tube TOPICAL 1 applic Q2H PRN Administration DRY LIPS Glycopyrrolate 0.2 mg 04/08/23 13:10 04/09/23 02:38 Glycopyrrolate 0 .2 Mg/Ml Sdv 2 Ml IV 0.2 mg Q4H PRN Administration Excessive Secreti ons, Rattling Morphine Sulfate 2 - 10 mg 04/08/23 13:10 04/09/23 05:09 Morphine 4 Mg/Ml Sdv 1 Ml IVP 2 mg Q15M PRN Administration Moderate To Sever e Pain or SOB Vitals/I&O/Wt Last Vital Signs Temp 100.3 F H 04/08/23 08:00 Pulse 87 04/09/23 10:00 Resp 35 H 04/08/23 22:35 BP 144/82 04/09/23 10:00 Pulse Ox 96 04/08/23 13:00 O2 Del Method Mechanical Ventilation 04/08/23 07:10 O2 Flow Rate 40 04/06/23 04:30 FiO2 24 04/08/23 20:00 04/08/23 04/09/23 04/09/23 22:59 06:59 14:59 Intake Total 0 / 0 Output Total 750 / 750 Balance 0 / 0 -750 / -750 Weight last 48 hrs Weight 73.482 kg Weight 73.482 kg Physical Exam Narrative: Intubated on mechanical ventilation HENMT: COMMON NORMALS: normocephalic and atraumatic HEAD & SCALP: normocep halic and atraumatic Resp: COMMON NORMALS: normal respiratory effort, No retractions, No use of accessory muscles and clear to auscultation bilaterally EFFORT & INSPECTION: Yes symmetric chest movement AUSCULTATION: clear to auscultation bilaterally Cardio: COMMON NORMALS: regular rate, regular rhythm, S1 normal heart sound present, S2 normal heart sound present, No gallops present (Cardio), No murmurs present (Cardio), No rub (Cardio) and Peripheral pulses 2+ throughout RATE: regular rate RHYTHM: regular rhythm HEART SOUNDS: S1 normal heart sound present and S2 normal heart sound present PERIPHERAL PULSES: Peripheral puls es 2+ throughout GI: COMMON NORMALS: Normal to inspection, nondistended, normoactive bowel sounds present, Soft to palpation, non-tender, No hepatosplenomegaly present and no masses AUSCULTATION: Yes normoactive bowel sounds PALPATION: Yes Soft to palpation and Yes No hepatosplenomegaly present RECTAL EXAM: Yes deferred Extremity: COMMON NORMALS: no clubbing, cyanosis or edema and no pedal edema Urinary Catheter Management: Mix: Cath Placed During This Visit: yes Reason for Continuing Indwelling Catheter: Hospice/Comfort/Palliative Care Urinary Catheter Date of Insertion: 04/05/23 Data 04/08/23 08:09 04/08/23 08:09 A&P Assessment and plan (1) Cardiac arrest: ROSC was achieved, but patient has yet to have any meaningful response All sedation was held, close to 72 hours hours.Patient failed to show any neurological recovery, 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 Repeat CT scan was done which did not demonstrate any bleeding, or stroke Upon Extensive discussion with , and son.Patient was made comfort care. (2) Shock: Resolved (3) Metabolic acidosis: Resolved (4) CAD (coronary artery disease): (5) Hx of mitral valve replacement: (6) Acute superficial venous thrombosis of left lower extremity: (7) Pneumonia: Proceeding with comfort. Antibiotics discontinued (8) Pulmonary embolism: Heparin drip has been discontinued,on comfort care measures. Plan Reduced ejection fraction, around 40%. Proceeding with comfort UTI discontinue antibiotics, proceeding with comfort Hematuria, resolved Attestations Medical Necessity Statement*: In hospital for comfort care measures. Coding Level of Care Code Acute Code for [facility] Diagnoses Cardiac arrest I46.9 Shock R57.9 Metabolic acidosis E87.20 CAD (coronary artery disease) I25.10 Hx of mitral valve replacement Z95.2 Acute superficial venous thrombosis of left lower extremity I82.812 Pneumonia J18.9 Pulmonary embolism I26.99
[2023-04-10] VITALS (7 sets, daily range): BP systolic 100–138; BP diastolic 61–81; PULSE 82–89; RESP 13–35; TEMP 36.9–38.3; O2SAT 81–91
[2023-04-10] MEDS: morphine 4 mg/mL SDV 1 mL IVP ×4 (02:44→20:11)
[2023-04-10] MEDS: glycopyrrolate 0.2 mg/mL SDV 2 mL IV ×2 (04:23→20:24)
[2023-04-10] MEDS: artificial tears Op Soln 15 mL Btl 2 DROP EYE-BOTH ×2 (10:19→20:17)
[2023-04-10] MEDS: LORazepam 2 mg/mL INJ 1 mL IVP ×2 (16:51→23:19)
[2023-04-10] MEDS: morphine 10 mg/0.5 mL oral liq UD SUBLINGUAL ×2 (16:51→21:52)
--- NOTE | 2023-04-10 17:20 | PM.PN ---
Subjective Subjective: Patient is currently on comfort care. Medications: Reviewed: Yes Medication Review Details: Generic Name Dose Route Start Last Admin Trade Name Freq PRN Reason Stop Dose Admin Artificial Tears 2 drop 04/08/23 13:10 04/08/23 22:22 Artificial Tears Op Soln 15 Ml Btl EYE-BOTH 2 drop Q2H PRN Administration DRY EYE(S) Atropine Sulfate 3 drop 04/08/23 13:10 04/09/23 05:09 Atropine 1% Op S oln 5 Ml Btl SUBLINGUAL 3 drop Q4H PRN Administration Excessive Secreti ons, Rattling Camphor/Menthol/Ph enol 1 applic 04/08/23 13:10 04/09/23 00:34 Blistex Lip Oint 7 Gm Tube TOPICAL 1 applic Q2H PRN Administration DRY LIPS Glycopyrrolate 0.2 mg 04/08/23 13:10 04/09/23 02:38 Glycopyrrolate 0 .2 Mg/Ml Sdv 2 Ml IV 0.2 mg Q4H PRN Administration Excessive Secreti ons, Rattling Morphine Sulfate 2 - 10 mg 04/08/23 13:10 04/09/23 05:09 Morphine 4 Mg/Ml Sdv 1 Ml IVP 2 mg Q15M PRN Administration Moderate To Sever e Pain or SOB Vitals/I&O/Wt Last Vital Signs Temp 98.5 F 04/10/23 07:00 Pulse 89 04/10/23 07:00 Resp 35 H 04/10/23 17:10 BP 138/81 04/10/23 07:00 Pulse Ox 91 04/10/23 07:00 O2 Del Method Room Air 04/10/23 07:00 O2 Flow Rate 40 04/06/23 04:30 FiO2 24 04/08/23 20:00 04/10/23 04/10/23 04/10/23 06:59 14:59 22:59 Intake Total 0 / 0 Output Total 350 / 900 Balance -350 / 1271.572 0 / 0 Weight last 48 hrs Weight 73.482 kg Physical Exam Narrative: On comfort care Urinary Catheter Management: Mix: Cath Placed During This Visit: yes Reason for Continuing Indwelling Catheter: Hospice/Comfort/Palliative Care Urinary Catheter Date of Insertion: 04/05/23 Data 04/08/23 08:09 04/08/23 08:09 Micro: Microbiology 04/04/23 21:57 Blood Culture - Final Blood NO GROWTH AFTER 5 DAYS 04/04/23 21:52 Blood Culture - Final Blood NO GROWTH AFTER 5 DAYS A&P Assessment and plan (1) Cardiac arrest: ROSC was achieved, but patient has yet to have any meaningful response All sedation was held, close to 72 hours hours.Patient failed to show any neurological recovery, 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 Repeat CT scan was done which did not demonstrate any bleeding, or stroke Upon Extensive discussion with , and son.Patient was made comfort care. (2) Shock: Resolved (3) Metabolic acidosis: Resolved (4) CAD (coronary artery disease): (5) Hx of mitral valve replacement: (6) Acute superficial venous thrombosis of left lower extremity: (7) Pneumonia: Proceeding with comfort. Antibiotics discontinued (8) Pulmonary embolism: Heparin drip has been discontinued,on comfort care measures. Plan Reduced ejection fraction, around 40%. Proceeding with comfort UTI discontinue antibiotics, proceeding with comfort Hematuria, resolved Attestations Medical Necessity Statement*: Currently on comfort care Coding Level of Care Code Acute Code for g [facility]wd Diagnoses Cardiac arrest I46.9 Shock R57.9 Metabolic acidosis E87.20 CAD (coronary artery disease) I25.10 Hx of mitral valve replacement Z95.2 Acute superficial venous thrombosis of left lower extremity I82.812 Pneumonia J18.9 Pulmonary embolism I26.99
[2023-04-10] MEDS: blistex lip oint 7 gm Tube 1 APPLIC TOPICAL (20:12)
--- NOTE | 2023-04-11 00:12 | PC.NURSE ---
Addendum entered by Luz Marina Hughes RN 04/11/23 00:13: TOD 23:51 Original Note: TOB 23:51. Two nurse verify. MTS notified. Family at bedside.
--- NOTE | 2023-04-11 01:22 | PC.NURSE ---
[place] [facility] [place] M[facility].
--- NOTE | 2023-04-11 07:48 | P.DES_ITS ---
Discharge Providers DDS Date of Admission: 04/04/23 21:25 Date Summary Completed: 04/11/23 Attending Provider at Admission: Silverio Garcia MD Time of : 23:51 Attending Provider at Discharge: Miguel Smart MD Primary Care Provider: Shadi Murray MD DS Diagnoses Hospital Diagnoses (1) Cardiac arrest: (2) Shock: (3) Metabolic acidosis: (4) CAD (coronary artery disease): (5) Hx of mitral valve replacement: (6) Acute superficial venous thrombosis of left lower extremity: (7) Pneumonia: (8) Pulmonary embolism: Reason for Visit Reason for Visit RESP. DISTRESS Summary Date and Time of Date of : 04/10/23 Time of : 23:51 Summary Summary: 77-year-old gentleman with past medical history of CAD not amenable to revascularization as per family, mitral bioprosthetic valve replacement presente d to the ER after PEA cardiac arrest x2, ROSC achieved 2 times after overall CPR for around 30 minutes, he was admitted for the management of s/p cardiac arrest, acute pulmonary embolism, cardiogenic shock, NSTEMI, anoxic brain injury, secondary to cardiac arrest.CT head without contrast no acute intracranial pathology,CT chest abdomen and pelvis: Suggestive of bilateral lower lobe segmental subsegmental pulmonary embolism, patchy bilateral airspace infiltrate, moderate to large bilateral pleural effusion. pericholecystic fluid with possible cholelithiasis. Lower extremity Dopplers were negative for DVT. 2D echo:LV systolic function is mildly reduced with EF of 40 to 45%.??Mild global hypokinesis is seen.? Moderate hypokinesis of ?inferolateral wall is seen,?RV is dilated and is hypokinetic.?Left atrium dilation,?Possible mitral valve annuloplasty ring is seen.? Mean gradient ?is mildly elevated.?Moderate to severe tricuspid regurgitation ?Severe pulmonary hypertension,?Moderate pulmonic regurgitation. Blood culture:NTD,MRSA PCR negative,Urine Legionella antigen negative,Bacterial antigen panel negative Sputum Gram stain and culture: Gram-negative alice , Urine culture gram-negative alice, patient was initially kept on heparin drip, broad-spectrum antibiotics, he was brought in intubated, initially was on sedatives, later sedatives were discontinued, repeat CT head without contrast was also done, as the patient was not showing any meaningful neurological recovery, post reasonable time labs after stopping the sedated, failed to show any acute intracranial pathology. During the hospital stay patient was also managed for, possible pneumonia: Culture grew Klebsiella oxyto, sensitive to Zosyn, urine culture grew Klebsiella pneumoniae, sensitive to Zosyn, patient was also spiking temperature during the hospital stay, possibly secondary to pneumonia and UTI, was appropriately covered with antibiotics, he was also managed for severe metabolic acidosis, shadi farley secondary to lactic acidosis, secondary to hypotension, was initially kept on bicarb drip, metabolic acidosis later resolved, bicarb drip was discontinued. Unfortunately patient never recovered from, anoxic brain injury, secondary to cardiac arrest, in the event of unlikely meaningful overall recovery, family decided to make patient comfort care, he passed on 04/10. Additional Data Advance directives?: No Discharge Plan Discharge Patient Disposition: Home Condition: Stable Prescriptions: Discontinued ascorbate calcium (vitamin C) 500 mg tablet 1 g PO DAILY aspirin [Adult Low Dose Aspirin] 81 mg tablet,delayed release (DR/EC) 81 mg PO QAM Rytary 48.75-195 mg capsule, extended release 2 cap PO QID ropinirole 1 mg tablet 2 mg PO TID@07,10,14 acetaminophen [Tylenol 8 Hour] 650 mg tablet extended release 650 mg PO Q8H PRN (Reason: Pain) finasteride 5 mg tablet See Rx Instructions .ROUTE .COMPLEX Qty: 90 3RF Dose Instruction: TAKE 1 TABLET BY MOUTH EVERY DAY Rx Instructions: TAKE 1 TABLET BY MOUTH EVERY DAY multivitamin Tablet 1 tab PO QAM Rytary 23.75-95 mg capsule, extended release 1 cap PO BID PRN (Reason: parkinsons) duloxetine 60 mg capsule,delayed release(DR/EC) 60 mg PO DAILY ferrous sulfate 324 mg (65 mg iron) Tablet,Delayed Release (Dr/Ec) 324 mg PO EVERY OTHER DAY alpha lipoic acid 200 mg Capsule 200 mg PO DAILY Inbrija 42 mg capsule, w/inhalation device 42 mg INHALATION QID midodrine 5 mg tablet 2.5 mg PO BID Qty: 15 0RF Rx Instructions: do not give last dose of day after 6PM or within 4 hrs of bedtime carvedilol 6.25 mg Tablet 6.25 mg PO BID Rx Instructions: must administer with a meal/food methenamine hippurate 1 gram tablet 1 g PO DAILY Referrals: Shaid Murray MD [Primary Care Provider] - Patient Instructions: Opioid Safety DS Attestations Time Spent in /Discharge Care*: less than 30 min Quality - AMI: AMI present?: No Quality - Stroke: CVA present?: No Quality - VTE: VTE present?: No Coding Level of Care Code Acute Code for [facility] Diagnoses Cardiac arrest I46.9 Shock R57.9 Metabolic acidosis E87.20 CAD (coronary artery disease) I25.10 Hx of mitral valve replacement Z95.2 Acute superficial venous thrombosis of left lower extremity I82.812 Pneumonia J18.9 Pulmonary embolism I26.99
== END 2023-04-11 01:23 | disposition expired | DRG 208 ==
LOC: ER 21:13 → ICU 21:46 → MEDSURG 04-09 15:04
PROVIDERS: Internal Medicine; Student in an Organized Health Care Education/Training Program; Admitting Provider Student in an Organized Health Care Education/Training Program; Emergency Provider Emergency Medicine; PCP Internal Medicine; Visit Provider Internal Medicine
DX: I26.94 Multiple subsegmental thrombotic pulmonary emboli without acute cor pulmonale (principal); I21.4 Non-ST elevation (NSTEMI) myocardial infarction; J15.0 Pneumonia due to Klebsiella pneumoniae; E87.20 Acidosis, unspecified; G93.1 Anoxic brain damage, not elsewhere classified; N39.0 Urinary tract infection, site not specified; I82.4Y1 Acute embolism and thrombosis of unspecified deep veins of right proximal lower extremity; I46.9 Cardiac arrest, cause unspecified; R57.0 Cardiogenic shock; I25.10 Atherosclerotic heart disease of native coronary artery without angina pectoris; Z95.3 Presence of xenogenic heart valve; I07.1 Rheumatic tricuspid insufficiency; I27.20 Pulmonary hypertension, unspecified; I37.1 Nonrheumatic pulmonary valve insufficiency; I95.9 Hypotension, unspecified; Z51.5 Encounter for palliative care; G20 Parkinson's disease; N40.1 Benign prostatic hyperplasia with lower urinary tract symptoms; R39.14 Feeling of incomplete bladder emptying; G62.9 Polyneuropathy, unspecified; Z87.891 Personal history of nicotine dependence; I25.2 Old myocardial infarction; I45.10 Unspecified right bundle-branch block; R31.0 Gross hematuria
CPT/HCPCS: 36415; 36416; 36556; 36600; 51702; 70450; 71045; 71275; 74177; 80048; 80053; 80061; 80202; 80306; 81001; 82550; 82607; 82746; 82803; 82962; 83036; 83540; 83550; 83605; 83735; 83880; 84145; 84443; 84484; 85025; 85378; 85610; 85730; 86140; 86403; 87040; 87070; 87077; 87086; 87186; 87205; 87449; 87486; 87581; 87633; 87641; 93005; 93306; 93970; 94002; 94003; 94640; 94799; 96365; 96366; 96367; 96375; 96376; 99291; A4570; C9113; J0171; J1644; J2060; J2270; J2543; J2704; J3010; J3370; J3480; J3490; J7030; J7050; J7060; J7070; J7626; Q9967